=== PATIENT | male | born 1960 | race African-American/Black ===

== ENCOUNTER 2018-09-06 13:22 | Inpatient (IN) | payer MEDICAID ==
[~2018-09-06] VITALS: Ht 177.8 cm; Wt 55.8 kg
[2018-09-06] VITALS (30 sets, daily range): BP systolic 68–139; BP diastolic 41–71
--- NOTE | 2018-09-06 13:25 | NUR ---
RT PT BROUGHT INTO ER BY PARAMEDICS WITH A Accupass 8 TRACH. PARAMEDICS WERE BAGGING PT UPON ARRIVAL. PT PLACED ON HOSPITAL VENT WITH NOTED SETTINGS BY PARAMEDICS. PT IS AWAKE BUT DOES NOT FOLLOW COMMANDS. VENT ALARMS ARE SET AND AUDIBLE WITH BVM BY BEDSIDE. CORPORATE OPERATIONS COMPLIANCE MANAGER CUFF PRESSURE NOTED. VENT IS PLUGGED INTO RED OUTLET. SX'D MODERATE THICK MONACO SECRETIONS. Addendum: 09/06/18 at 1434 by NICOLA BLACKBURN RT Amended: Links added.
[2018-09-06] MEDS ORDERED: VANCOMYCIN 1 GM in IV D5W 250 ML IV ONE (13:30)
[2018-09-06] MEDS ORDERED: IV NS 0.9% 1,000 ML BAG IV ONE (13:30)
[2018-09-06] MEDS ORDERED: CEFEPIME 1 GM in IV D5W 50 ML IV ONE (13:30)
--- NOTE | 2018-09-06 13:39 | NUR ---
RIGHT AC 18 GAUGE INITIATED MD AT BEDSIDE FOR INSERTION OF CENTRAL LINE IV FLUIDS RUNNING BS 91 TEMP 102.8 RECTALLY, ICE PACKS IMPLEMENTED IMMEDIATELY PATIENT TRACH VENT AC 14, TIDAL VOLUME 400 FIO2 100 PEEP OF 0
--- NOTE | 2018-09-06 13:41 | NUR ---
BLOOD COLLECTED AND SENT TO LAB
[2018-09-06] MEDS ORDERED: ACETAMINOPHEN 160 MG/5 ML GT STA (13:50)
[2018-09-06 13:55] LABS: HEMATOCRIT 30 % (39-51); HEMOGLOBIN 9.8 g/dL (13.5-17.5); MEAN CORPUSCULAR HGB CONC 33 g/dl (31.0-36.0); MEAN CORPUSCULAR VOLUME 88 fL (80-96); PLATELET COUNT (AUTO) 236 /CMM (150-450); RED BLOOD CELL COUNT(AUTO) 3.42 MIL/uL (4.5-6.0); WHITE BLOOD COUNT (AUTO) 6.5 K/uL (4.3-11.0)
--- NOTE | 2018-09-06 13:55 | NUR ---
PATIENT UNABLE TO FOLLOW COMMANDS. SEVERE WEAKNESS ON UPPER AND LOWER EXTREMITIES. UNABLE TO FOLLOW PEN LIGHT WITH EYES, COUGH AND GAG REFLEX NOTED SLUGGIESH REACTION WITH 2 MM
[2018-09-06] MEDS ORDERED: NOREPINEPHRINE 8 MG in IV D5W 500 ML IV ONE (14:00)
--- NOTE | 2018-09-06 14:00 | NUR ---
DR SCHMID NOTIFIED OF ABG RESULTS, FIO2 TITRATED TO 80% PER ORDERS. SPO2 AT 98 %.
[2018-09-06 14:01] LABS: ABG BASE EXCESS -3.8 mmol/L; ABG OXYGEN SATURATION 98.7 % (92.0-98.5); ABG PCO2 36.3 mmHg (35.0-45.0); ABG PH 7.377 (7.350-7.450); ABG PO2 235.7 mmHg (75.0-100.0); COHb 0.3 % (0.5-1.5); MetHb 0.5 % (0.0-1.5); O2Hb 97.9 % (94.0-97.0); PEEP,BG 0 cm H2O; SITE, ABG Left Radial; VT, ABG 400 mL
[2018-09-06] MEDS ORDERED: ACETAMINOPHEN 650 MG/20.3 ML UDC ONE (14:01)
[2018-09-06 14:05] LABS: CARBON DIOXIDE 22 mmol/L (21-32); CHLORIDE 97 mmol/L (98-107); CREATININE 2.1 mg/dL (0.6-1.3); GLUCOSE 91 mg/dL (74-106); POTASSIUM 5.3 mmol/L (3.5-5.1); SODIUM SERUM 135 mmol/L (136-145); UREA NITROGEN, BLOOD 54 mg/dL (7-18)
[2018-09-06 14:11] LABS: ALANINE AMINOTRANSFERASE 39 U/L (12-78); ALBUMIN 1.8 g/dL (3.4-5.0); ALKALINE PHOSPHATASE 113 U/L (46-116); ASPARTATE AMINOTRANSFERASE 106 U/L (15-37); BILIRUBIN,DIRECT 0.1 mg/dL (0.0-0.2); BILIRUBIN,TOTAL 0.4 mg/dL (0.2-1.0); TOTAL PROTEIN, SERUM 6.6 g/dL (6.4-8.2)
--- NOTE | 2018-09-06 14:17 | NUR ---
DR CARVAJAL NOTIFIED OF BP TREND, RECENT BP 120/73 PER HER ORDERS, HOLD LEVOPHED FOR NOW CONTINUE FLUIDS
--- NOTE | 2018-09-06 14:18 | NUR ---
DR CARVAJAL NOTIFIED OF BP TREND, RECENT BP 120/73 PER HER ORDERS, HOLD LEVOPHED FOR NOW CONTINUE FLUIDS ,.ADDITIONAL [address] CARVAJAL PER PATIENT'S WEIGHT. VERBAL READBACK DONE
[2018-09-06 14:40] LABS: BAND % (MANUAL) 4 % (0.0-5.0); LYMPHOCYTES % (MANUAL) 8 % (16-48); MONOCYTES % (MANUAL) 20 % (0-11.0); NEUTROPHILS % (MANUAL) 68 (42-76)
[2018-09-06] MEDS ORDERED: INSU100V27 SQ (14:49)
[2018-09-06] MEDS ORDERED: ATOR10TA PO (14:49)
[2018-09-06] MEDS ORDERED: VANC1VIA IV (14:49)
[2018-09-06] MEDS ORDERED: LISI2.5T2 PO (14:49)
[2018-09-06] MEDS ORDERED: INSU100I26 SQ (14:49)
[2018-09-06] MEDS ORDERED: HEPA50008 SQ (14:49)
[2018-09-06] MEDS ORDERED: CEFT1VIA15 IV (14:49)
[2018-09-06] MEDS ORDERED: FURO20TA4 PO (14:49)
[2018-09-06] MEDS ORDERED: TRAZ-214 PO (14:49)
[2018-09-06] MEDS ORDERED: LEVE500T20 PO (14:49)
--- NOTE | 2018-09-06 14:50 | NUR ---
PER DR CARVAJAL, TITRATE FIO2 TO 50%
[2018-09-06] MEDS ORDERED: NUT.250L18 GT (14:52)
--- NOTE | 2018-09-06 14:54 | NUR ---
Bed 256
[2018-09-06] MEDS ORDERED: ALBUMIN 25% 12.5 GM/50 ML BOTTLE IV ONE (15:00)
--- NOTE | 2018-09-06 15:00 | NUR ---
ICU/RN: RECEIVED PT FROM ER. REPORT RECEIVED BY ESTRELLA REGAN. PT TRANSFERRED VIA GURNEY. PT ON VENT SETTINGS ORDERED BY MD. SAMMIE Schumacher TRACH NOTED. PT OPENS EYES TO PAINFUL STIMULI, DOES NOT FOLLOW COMMANDS. PT SINUS TACH ON TELE. SEXTON CATH IN PLACE, DRAINING ROXANA URINE. TUBE IN PLACE, CLAMPED, PLACEMENT VERIFIED. PT NPO AT THIS TIME. PIV AND CENTRAL LINE INTACT, NO S/S OF INFECTION OR INFILTRATION NOTED. WOUND PHOTOS TAKEN AND PLACED IN CHART. ISOFLEX ON BED TURNED ON. TEMP NOTED, TYLENOL WAS GIVEN IN ER, COOLING MEASURES TAKEN. ALL NEEDS WILL BE ATTENDED TO, SAFETY MEASURES TAKEN, BED IN LOW POSITION, SIDE RAILS UP, CALL LIGHT WITHIN REACH. WILL CONTINUE CARE.
--- NOTE | 2018-09-06 15:16 | NUR ---
COUDE CATHETER, 16 URDU, INSERTED PER DR CARVAJAL UA COLLECTED AND SENT TO LAB
[2018-09-06 15:20] LABS: APPEARANCE,URINE Slightly Cloudy (CLEAR); BILIRUBIN,URINE Negative (NEGATIVE); BLOOD, URINE Moderate Ery/uL (NEGATIVE); COLOR,URINE Dark Yellow (YELLOW); KETONES,URINE Negative (NEGATIVE); LEUKOCYTE ESTERASE ,URINE Small (NEGATIVE); NITRITE, URINE Negative (NEGATIVE); PROTEIN,URINE 30 mg/dl (NEGATIVE); UGLUCOSE 100 MG/DL mg/dL (NEGATIVE); UROBILINOGEN,URINE 0.2 EU/dL (0.2)
[2018-09-06] MEDS ORDERED: ALBUMIN 25% 50 ML IV ONE ×2 (15:21)
[2018-09-06] MEDS ORDERED: PIPERACILLIN /TAZOBACTAM 3.375 G in IV D5W 50 ML IV SCH (15:30)
--- NOTE | 2018-09-06 15:38 | NUR ---
NASRIN ZAMORA NP UPDATED OF PATIENT'S STATUS AND AWARE OF COUDE CATHETER INSERTION
[2018-09-06 15:40] LABS: BACTERIA,URINE Many /HPF (None Seen); SQUAMOUS EPITHELIAL CELL,UR Rare /HPF (None Seen); WBC,URINE 21-50 /HPF (0-3)
[2018-09-06] MEDS ORDERED: NOREPINEPHRINE 8 MG in IV D5W 500 ML IV PRN (16:00)
[2018-09-06] MEDS ORDERED: ONDANSETRON HCL/PF 4 MG/2 ML VIAL IVP PRN (16:00)
[2018-09-06] MEDS ORDERED: PIPERACILLIN /TAZOBACTAM 3.375 G in IV D5W 50 ML IV ONE (16:00)
[2018-09-06] MEDS ORDERED: FEE PK DOSING 1 MIN EA MC ONE (16:06)
--- NOTE | 2018-09-06 16:33 | NUR ---
REPORT GIVEN TO MOE RN PATIENT RESTING IN BED WITH VS WNL. SHIELY 8, FIO2 OF 50%, AC 14, TV 400, PEEP OF 0 RIGHT IJ CENTRAL LINE PATENT AND INTACT. GAUGE 18 PATENT AND INTACT SEXTON CATHETER PATNET AND INTACT DRAINING YELLOW CLOUDY URINE SPOKE TO PHARMACY, ZOSYN TO BE INFUSED IN ICU
[2018-09-06] MEDS: IV NS 0.9% 1,000 ML IV PRN (17:59)
[2018-09-06] MEDS: NOREPINEPHRINE 8 MG in IV D5W 500 ML IV PRN ×2 (18:00→19:36)
[2018-09-06] MEDS ORDERED: PIPERACILLIN /TAZOBACTAM 2.25 G in IV D5W 50 ML IV SCH (18:00)
--- NOTE | 2018-09-06 18:00 | NUR ---
ICU/RN: LOW DOSE LEVO INITIATED, BP 82/51, HR 116. WILL TITRATE PER PROTOCOL
[2018-09-06] MEDS ORDERED: MEROPENEM 500 MG in IV NS 0.9% 50 ML IV SCH (19:00)
--- NOTE | 2018-09-06 19:05 | NUR ---
ICU/RN: ENDING NOTES,AM REPORT WILL BE ENDORSED TO NIGHT NURSE FOR CONTINUATION OF CARE. ALL NEEDS ATTENDED TO. PT ON VENT SETTINGS ORDERED, SOME TACHYPNEA NOTED. PT HAS TEMP OF 100.1, COOLING MEASURES TAKEN. ACETAMINOPHEN ADMINISTERED IN ER, NOT DUE AT THIS TIME. WILL CONTINUE TO MONITOR RR RATE. ISOFLEX TURNED ON ON THE BED, PT TURNED AND REPOSITIONED. WOUND CONSULT PENDING. ALL NEEDS ATTENDED TO SAFETY MEASURES TAKEN, BED IN LOW POSITION, SIDE RAILS UP, CALL LIGHT WITHIN REACH. SPUTUM CX PENDING.
--- NOTE | 2018-09-06 19:38 | NUR ---
PT RECEIVED TRACH SHILEY 8 ON THE VENT WITH NOTED SETTINGS. PT IS AWAKE BUT DOES NOT FOLLOW COMMANDS. VENT PLUGGED INTO RED OUTLET, VENT ALARMS ARE SET AND AUDIBLE WITH AMBU BAG@ BEDSIDE. CARTOGRAPHY TEACHER CUFF PRESSURE NOTED. SUCTIONED MODERATE AMOUNT OF BROWN THICK SECRETIONS. PT RESPIRATORY RATE IS HIGH AT THIS TIME. ESTRELLA COHEN NOTIFIED .WILL CONTINUE TO MONITOR.
[2018-09-06] MEDS ORDERED: MEROPENEM 1 G in IV NS 0.9% 100 ML IV ONE (20:00)
[2018-09-06] MEDS: HEPARIN SODIUM, PORCINE 5000 UNITS/1 ML VIAL SQ SCH (20:05)
--- NOTE | 2018-09-06 20:20 | NUR ---
RADIO MECHANIC APPRENTICE: DR. DELMIS LYNN SAW AND EXAMINED THE PT. INFORMED HIM OF K=5.3 AND THAT PT HAD 2 LARGE BM DURING DAY SHIFT AND FROM ER. PT STILL NOTED WT KCVD=416.4 AND RR IN THE 40s. ST WT P WAVE INVERSION. DNP WT ORDER FOR ABG STAT. NOTED AND CARRIED OUT.
[2018-09-06 21:00] LABS: ABG BASE EXCESS -2.3 mmol/L; ABG OXYGEN SATURATION 91.4 % (92.0-98.5); ABG PCO2 35.4 mmHg (35.0-45.0); ABG PH 7.411 (7.350-7.450); ABG PO2 68.4 mmHg (75.0-100.0); AaDO2 248.3 mmHg; COHb 0.3 % (0.5-1.5); MetHb 0.5 % (0.0-1.5); O2Hb 90.7 % (94.0-97.0); SITE, ABG Right Radial; VT, ABG 400 mL
[2018-09-06] MEDS ORDERED: PIPERACILLIN /TAZOBACTAM 3.375 G in IV D5W 100 ML IV SCH (21:00)
--- NOTE | 2018-09-06 21:30 | NUR ---
TAXICAB STARTER: RELAYED ABG RESULT TO DR. LYNN WT NO NEW ORDER. SPUTUM COLLECTED AND CALLED TO PHARMACY FOR DETECTOR CAR OPERATOR.
[2018-09-07] VITALS (109 sets, daily range): BP systolic 86–120; BP diastolic 39–74
--- NOTE | 2018-09-07 02:00 | NUR ---
SIGNING AGENT: BED BATH GIVEN AND TOLERATED FAIRLY. STILL ON LEVOPHED AT 5 MCG/MIN FOR BP SUPPORT. WILL CONTINUE TO MONITOR.
[2018-09-07] MEDS: VANCOMYCIN 0.75 GM in IV D5W 250 ML IV SCH ×2 (02:29→15:52)
[2018-09-07 04:25] LABS: HEMOGLOBIN 7.6 g/dL (13.5-17.5); MONOCYTES # (AUTO) 0.2 /CMM (0.1-1.30)
[2018-09-07 04:45] LABS: CALCIUM, SERUM 7.5 mg/dL (8.5-10.1); CREATININE 1.5 mg/dL (0.6-1.3); MAGNESIUM 1.7 mg/dL (1.8-2.4); PHOSPHORUS 3.8 mg/dL (2.5-4.9); POTASSIUM 4.7 mmol/L (3.5-5.1)
[2018-09-07 04:59] LABS: EOSINOPHILS % (AUTO) 0.9 % (0.0-6.0); HEMATOCRIT 23 % (39-51); LYMPHOCYTES # (AUTO) 0.1 /CMM (0.8-4.8); LYMPHOCYTES % (AUTO) 1.8 % (20.0-44.0); MEAN CORPUSCULAR HGB CONC 33 g/dl (31.0-36.0); MEAN CORPUSCULAR VOLUME 87 fL (80-96); MONOCYTES % (AUTO) 6.1 % (2.0-12.0); NEUTROPHILS % (AUTO) 91.2 % (43.0-81.0); PLATELET COUNT (AUTO) 110 /CMM (150-450); RED BLOOD CELL COUNT(AUTO) 2.62 MIL/uL (4.5-6.0); WHITE BLOOD COUNT (AUTO) 3.3 K/uL (4.3-11.0)
[2018-09-07] MEDS: IV NS 0.9% 1,000 ML IV PRN ×2 (05:32→17:58)
[2018-09-07 06:06] LABS: BAND % (MANUAL) 20 % (0.0-5.0); LYMPHOCYTES % (MANUAL) 6 % (16-48); MONOCYTES % (MANUAL) 10 % (0-11.0); NEUTROPHILS % (MANUAL) 64 (42-76)
--- NOTE | 2018-09-07 06:50 | NUR ---
MARKETING MGR: PT REMAINS ALERT TO SELF, UNABLE TO FOLLOW SIMPLE COMMANDS. VENT SETTINGS ORDERED WT RR STILL IN THE HIGH 30s TO LOW 40s. CORE TEMP= 100.1, CONTINUE COOLING MEASURES. SINUS TACH ON SECOND HELPER AND STILL ON LEVOPHED AT 5MCG/MIN. RT. IJ TLC ALSO INFUSING NS AT 100ML/HR WT NO S/S OF COMPLICATIONS. GT REMAINS CLAMPED. F/C PATENT AND INTACT DRAINING ROXANA COLORED URINE TO GRAVITY. ALL NEEDS MET. WILL ENDORSE TO DAY SHIFT FOR CONTINUITY OF CARE.
[2018-09-07] MEDS: MEROPENEM 1 G in IV NS 0.9% 100 ML IV SCH ×2 (09:06→21:13)
[2018-09-07] MEDS: PANTOPRAZOLE 40 MG VIAL IV SCH (09:09)
--- NOTE | 2018-09-07 10:00 | NUR ---
DR MARTE UPDATED ON LAST NIGHT'S ABG RESULTS. NO NEW ORDERS.
[2018-09-07] MEDS ORDERED: Sodium Phosphate 15 MMOL in IV D5W 250 ML IV ONE (10:30)
[2018-09-07] MEDS: ACETAMINOPHEN 650 MG/SUPP.RECT RC PRN (11:09)
[2018-09-07] MEDS: Magnesium 1GM/D5W 100ML PREMIX 100 ML IV SCH ×2 (11:21→12:26)
[2018-09-07] MEDS: HEPARIN SODIUM, PORCINE 5000 UNITS/1 ML VIAL SQ SCH ×2 (12:27→21:14)
--- NOTE | 2018-09-07 12:31 | NUR ---
NASRIN ZAMORA UPDATED REGARD TODAY'S H&H. PER HIS ORDERS, CONTINUE HEPARIN NO SIGNS OF BLEEDING NOTED ALL MORNING. RADIOLOGIC TECHNOLOGIST CHIEF NOTIFIED OF ABG RESULTS OF YESTERDAY PER NASRIN ZAMORA NP, START PATIENT ON TUBE FEEDING PER DIETARY RECOMMENDATION
[2018-09-07] MEDS: NOREPINEPHRINE 8 MG in IV D5W 500 ML IV PRN (15:13)
[2018-09-07] MEDS: GLUCERNA 1.2 1,000 ML BOTTLE NG PRN (18:04)
--- NOTE | 2018-09-07 19:30 | NUR ---
RN NOTES RECEIVED PT WITH TRACH SHILEY 8 CONNECTED TO VENT SETTING AC 14 TV 400 FIO2 50% NO PEEP. PT IS LETHARGIC, NON VERBAL BUT RESPONSIVE TO TACTILE STIMULI. ST WITH T WAVE INVERSION HR 103. ZERO FLACC. IV SITE ON RIJ WITH LEVOPHED @ 1 MCG/MIN ANS NS @ 100 ML/HR ANOTHE IV SITE ON RAC G 18 INTACT AND FLUSHED WELL. SEXTON CATH DRAINED WITH YELLOW COLOR CLEAR URINE. KEPT PT CLEAN AND DRY. REPOSITIONED FOR COMFORT. WILL CONTINUE TO MONITOR,
--- NOTE | 2018-09-07 19:44 | NUR ---
VANCO DOSE GIVEN TODAY PER PHARMACY RENAL DOSING. ARI CROOK, NOTIFIED. DR MELVIN PAGED DURING SHIFT TO CLARIFY ORDER OF CONTINUING VANCOMYCIN. NO CALL BACK RECEIVED. ENDORSED TO NEXT SHIFT RN
[2018-09-08] VITALS (103 sets, daily range): BP systolic 85–129; BP diastolic 48–75
[2018-09-08] MEDS ORDERED: PROPOFOL 100 ML ONE (00:53)
[2018-09-08] MEDS: VANCOMYCIN 0.75 GM in IV D5W 250 ML IV SCH (02:40)
[2018-09-08 05:19] LABS: BASOPHILS % (AUTO) 0.1 % (0.0-2.0); EOSINOPHILS % (AUTO) 0.2 % (0.0-6.0); HEMATOCRIT 24 % (39-51); HEMOGLOBIN 7.7 g/dL (13.5-17.5); LYMPHOCYTES # (AUTO) 0.2 /CMM (0.8-4.8); LYMPHOCYTES % (AUTO) 1.3 % (20.0-44.0); MEAN CORPUSCULAR HGB CONC 33 g/dl (31.0-36.0); MEAN CORPUSCULAR VOLUME 89 fL (80-96); MONOCYTES # (AUTO) 0.5 /CMM (0.1-1.30); NEUTROPHILS # (AUTO) 11.6 /CMM (1.8-8.9); NEUTROPHILS % (AUTO) 94.4 % (43.0-81.0); RED BLOOD CELL COUNT(AUTO) 2.67 MIL/uL (4.5-6.0); WHITE BLOOD COUNT (AUTO) 12.3 K/uL (4.3-11.0)
[2018-09-08 05:44] LABS: MONOCYTES % (MANUAL) 4 % (0-11.0); NEUTROPHILS % (MANUAL) 74 (42-76)
[2018-09-08 05:45] LABS: ALANINE AMINOTRANSFERASE 49 U/L (12-78); ALKALINE PHOSPHATASE 74 U/L (46-116); ASPARTATE AMINOTRANSFERASE 82 U/L (15-37); BAND % (MANUAL) 20 % (0.0-5.0); CALCIUM, SERUM 7.9 mg/dL (8.5-10.1); CARBON DIOXIDE 19 mmol/L (21-32); CHLORIDE 105 mmol/L (98-107); CREATININE 1.3 mg/dL (0.6-1.3); LYMPHOCYTES % (MANUAL) 2 % (16-48); MAGNESIUM 2.6 mg/dL (1.8-2.4); PHOSPHORUS 4.3 mg/dL (2.5-4.9); POTASSIUM 5.3 mmol/L (3.5-5.1); SODIUM SERUM 140 mmol/L (136-145); TOTAL PROTEIN, SERUM 5.4 g/dL (6.4-8.2); UREA NITROGEN, BLOOD 53 mg/dL (7-18)
[2018-09-08 05:49] LABS: PLATELET COUNT (AUTO) 46 /CMM (150-450)
[2018-09-08 05:51] LABS: ALBUMIN 1.4 g/dL (3.4-5.0); GLUCOSE 401 mg/dL (74-106)
[2018-09-08 06:05] LABS: CREATINE KINASE, TOTAL 1641 U/L (39-308)
--- NOTE | 2018-09-08 06:15 | NUR ---
RN NOTES CALLED AND LEFT A MESSAGE TO DR. LYNN REGARDING PT CRITICAL VALUES OF ALBUMIN 1.4 GLUCOSE 401 AND PLATELET 46. WAITING FOR THE CALL BACK.
[2018-09-08] MEDS: PROPOFOL 100 ML IV PRN ×2 (06:31→18:20)
--- NOTE | 2018-09-08 07:15 | NUR ---
RN NOTES NO SIGNIFICANT CHANGES THROUGHOUT THE SHIFT. AFEBRILE. VSS WITH LEVOPHED. ZERO FLACC. RESPONSIVE TO DEEP PAIN. ST WITH INVERTED T- WAVE ON TELE MONITOR. WITH LOW URINE OUTPUT. KEPT PT GTF ON 20 ML/HR DUE TO RESIDUAL OF 20-30'S. IV SITE REMAINED INTACT AND PATENT WITH LEVOPHED @ 1MCG/MIN AND PROPOFOL @ 5 MCG/KG/MIN AND NS @ 100 ML/HR. F/C KEPT IN PLACED WITH SMALL AMOUNT OF URINE VIA GRAVITY. KEPT PT CLEAN AND RY. ENDORSED CONTINUITY OF CARE TO AM NURSE.
--- NOTE | 2018-09-08 08:15 | NUR ---
RN NOTES SEEN BY STEWART FOR WOUND CONSULT.
--- NOTE | 2018-09-08 08:30 | NUR ---
WOUND CARE CONSULT: PT PRESENTS WITH UNSTAGEABLE SACRAL ULCER AND DRY WOUNDS TO BILATERAL KNEES, PRESENT ON ADMISSION. RECOMMEND SURGICAL CONSULT. RECOMMENDATIONS MADE FOR WOUND CARE AND SKIN PROTECTION. DISCUSSED WITH NURSING STAFF. PT ON [facility] AIR[facility] BED. WILL SEE PRN. ANGUIANO IN AGREEMENT WITH PLAN OF CARE. CURRENT RALPH SCORE IS 9. Addendum: 09/08/18 at 0831 by STEWART GOULD WNDNU Amended: Links added.
[2018-09-08] MEDS: IV NS 0.9% 1,000 ML IV PRN (08:34)
[2018-09-08] MEDS: MEROPENEM 1 G in IV NS 0.9% 100 ML IV SCH ×2 (08:44→20:26)
[2018-09-08] MEDS: PANTOPRAZOLE 40 MG VIAL IV SCH (08:44)
[2018-09-08] MEDS: LACTOBACILLUS RHAMNOSUS GG 1 EACH CAP.SPRINK PO SCH ×2 (08:49→16:00)
--- NOTE | 2018-09-08 08:59 | NUR ---
PT WITH A SHILEY 8 TRACH. SETTINGS ORDERED PT IS AWAKE BUT DOES NOT FOLLOW COMMANDS. VENT ALARMS ARE SET AND AUDIBLE WITH BVM BY BEDSIDE. CURRENCY MACHINE OPERATOR CUFF PRESSURE NOTED. VENT IS PLUGGED INTO RED OUTLET. SX'D MODERATE THICK MONACO SECRETIONS. Addendum: 09/08/18 at 0902 by NICOLÁS MONTIEL RT Amended: Links added.
[2018-09-08] MEDS: HEPARIN SODIUM, PORCINE 5000 UNITS/1 ML VIAL SQ SCH ×2 (09:00→20:26)
[2018-09-08] MEDS: Z GUARD REMEDY 2 OZ OINT TP SCH (09:35)
[2018-09-08] MEDS: DAKINS QUARTER STRENGTH (0.125%) 480 ML BOTTLE TOP SCH (09:35)
[2018-09-08 10:13] LABS: APPEARANCE,URINE CLOUDY (CLEAR); BILIRUBIN,URINE NEGATIVE (NEGATIVE); BLOOD, URINE TRACE Ery/uL (NEGATIVE); COLOR,URINE YELLOW (YELLOW); KETONES,URINE TRACE (NEGATIVE); LEUKOCYTE ESTERASE ,URINE NEGATIVE (NEGATIVE); NITRITE, URINE NEGATIVE (NEGATIVE); PROTEIN,URINE NEGATIVE (NEGATIVE); UGLUCOSE NEGATIVE (NEGATIVE); UROBILINOGEN,URINE 0.2 EU/dL (0.2)
[2018-09-08 10:22] LABS: CREATININE, URINE 74.6 MG/DL (30.0-125.0); URINE TOTAL PROTEIN 92.4 mg/dL (0-11.9)
--- NOTE | 2018-09-08 11:30 | NUR ---
RN NOTES DR. DUEÑAS CALLED REGARDING THE CT RESULT OF RIGHT BRAIN MENINGIOMA, INFORMED NOAH CHAPMAN THAT PATIENT HAD HISTORY OF BRAIN CANCER. WAITING TO RESPONSE
--- NOTE | 2018-09-08 11:37 | NUR ---
RN NOTES DR. MILAN ON THE FLOOR INFORMED REGARDING PATIENT ABG RESULT Ph 7.255 Pco2 36.8 Po2 103.7 HC03 16.0
--- NOTE | 2018-09-08 11:49 | NUR ---
RN NOTES ENDORSED CONTINUITY OF CARE TO AGAPITO DE [place]
[2018-09-08 11:50] LABS: ABG BASE EXCESS -10.3 mmol/L; ABG OXYGEN SATURATION 95.9 % (92.0-98.5); ABG PCO2 36.8 mmHg (35.0-45.0); ABG PH 7.255 (7.350-7.450); ABG PO2 103.7 mmHg (75.0-100.0); AaDO2 139.2 mmHg; COHb 0.3 % (0.5-1.5); MetHb 1.2 % (0.0-1.5); O2Hb 94.5 % (94.0-97.0); SITE, ABG Right Radial
[2018-09-08 12:01] LABS: RBC,URINE 0-2 /HPF (0-2); WBC,URINE NONE SEEN /HPF (0-3)
[2018-09-08 12:02] LABS: BACTERIA,URINE Few /HPF (None Seen); SQUAMOUS EPITHELIAL CELL,UR Few /HPF (None Seen)
[2018-09-08 12:10] LABS: EOSINOPHIL,URINE None Seen
--- NOTE | 2018-09-08 12:15 | NUR ---
RN NOTES RECEIVED PT FROM OUTGOING RN, PT ON MECHANICAL VENTILATION, ON DIPRIVAN DRIP AT THIS TIME, PT WITH TACHYCARDIA AND INCREASED RESPIRATIONS. PT ON LEVOPHED ORDERED FOR CONTINUED BP SUPPORT.IV ACCESS PATENT AND INTACT NO REDNESS OR INFILTRATION NOTED. KEPT CLEAN DRY AND COMFORTABLE, CALL LIGHT WITHIN EASY REACH WILL CONTINUE TO MONITOR
[2018-09-08] MEDS: D5 IV PRN (15:24)
[2018-09-08] MEDS: SODIUM ACETATE IV PRN (15:24)
[2018-09-08] MEDS: NACL IV PRN (15:24)
[2018-09-08] MEDS: NOREPINEPHRINE 8 MG in IV D5W 500 ML IV PRN (16:02)
[2018-09-08] MEDS: GLUCERNA 1.2 1,000 ML BOTTLE NG PRN (16:25)
--- NOTE | 2018-09-08 18:45 | NUR ---
RN NOTES PT IN BED, PT ON MECHANICAL VENTILATION, ON DIPRIVAN DRIP AT THIS TIME, PT WITH TACHYCARDIA AND INCREASED RESPIRATIONS. PT ON LEVOPHED ORDERED FOR CONTINUED BP SUPPORT.IV ACCESS PATENT AND INTACT NO REDNESS OR INFILTRATION NOTED. KEPT CLEAN DRY AND COMFORTABLE, CALL LIGHT WITHIN EASY REACH WILL CONTINUE TO MONITOR. BLOOD SUGAR CHECKED WITH RESULT OF 478, NASRIN ZAMORA TO CALL BACK WITH ORDERS REPORT GIVEN TO NEXT SHIFT FOR CONTINUITY OF CARE Addendum: 09/08/18 at 2003 by PRAKASH CHATTERJEE RN REPORT TO BE GIVEN TO NEXT RN
[2018-09-08] MEDS ORDERED: DEXTROSE 50%-WATER 50 ML DISP.SYRIN IV PRN (19:30)
[2018-09-08] MEDS ORDERED: INSULIN REGULAR, HUMAN 100 UNIT/ML 3 ML VIAL SQ PRN (19:30)
[2018-09-08] MEDS ORDERED: INSULIN REGULAR, HUMAN 100 UNIT/ML 10 ML VIAL SQ ONE (19:30)
--- NOTE | 2018-09-08 19:30 | NUR ---
RN NOTES REGULAR INSULIN 6 U SQ GIVEN ORDERED, CONTINUE TO MONITOR AT THIS TIME REPORT GIVEN TO NEXT SHIFT
--- NOTE | 2018-09-08 19:30 | NUR ---
EMPLOYEE COMMUNICATIONS COORDINATOR: RECEIVED CHRONIC TRACH TO VENT PT WT SETTINGS ORDERED. NOTED WT SHALLOW BREATHING WT RR IN THE 30s-40s. OBTUNDED AND MOVES TO LOCALIZED PAIN. CORE TEMP=99.9, CONTINUE COOLING MEASURES. ST ON GENERAL MERCHANDISE SALESPERSON. LT. IJ TLC RUNNING NA ACETATE AT 75ML/HR, DIPRIVAN AT 5MCG/KG/MIN AND LEVOPHED 8MCG/MIN WT NO S/S OF COMPLICATIONS. GT RUNNING GLUCERNA 1.2 AT 30ML/HR WT 10C RESIDUAL. BLOOD TINGED SPUTUM SECRETIONS WHEN SUCTIONED. F/C PATENT AND INTACT DRAINING ROXANA COLORED URINE. ON MONITORING FOR HYPERGLYCEMIA. HOB AT 35 DEGREES. SAFETY PRECAUTION NOTED. Addendum: 09/09/18 at 0304 by NOEL VASQUEZ RN CORRECTION:INTERNAL JUGULAR TLC IS ON RIGHT SIDE, NOT LEFT SIDE.
--- NOTE | 2018-09-08 19:55 | NUR ---
PT RECEIVED TRACH SHILEY 8 ON THE VENT WITH NOTED SETTINGS. PT IS OBTUNDED. VENT PLUGGED INTO RED OUTLET, VENT ALARMS ARE SET AND AUDIBLE WITH AMBU BAG@ BEDSIDE. SUGAR CHIPPER MACHINE OPERATOR CUFF PRESSURE NOTED. TRACH PATENT AND SECURED. SUCTIONED MODERATE AMOUNT OF YELLOW THICK SECRETIONS WITH TINGED BLOOD.WILL CONTINUE TO MONITOR.
[2018-09-08] MEDS ORDERED: VANCOMYCIN 0.75 GM in IV D5W 250 ML IV SCH (20:00)
--- NOTE | 2018-09-08 20:38 | NUR ---
CARE MANAGEMENT ASSOCIATE: AMBER. TROUGH=23, HELD 2000 DOSE PER PROTOCOL AND CONFIRMED WT PRAKASH (PHARMACIST).
[2018-09-09] VITALS (103 sets, daily range): BP systolic 73–135; BP diastolic 43–72
[2018-09-09] MEDS ORDERED: BLOOD SUGAR DIAGNOSTIC 1 EACH STRIP IN SCH
[2018-09-09] MEDS ORDERED: INSULIN REGULAR, HUMAN 100 UNIT/ML 3 ML VIAL SQ ONE
--- NOTE | 2018-09-09 | NUR ---
COMPUTED TOMOGRAPHY SCANNER OPERATOR: DR. LYNN CALLED BACK AND MADE AWARE OF RA=631. DISCUSSED CURRENT SLIDING SCALE. DNP ORDERED TO GIVE 18 UNITS NOW, CHANGED SLIDING SCALE TO AGGRESSIVE AND ACCUCHEK Q4H. NOTED AND CARRIED OUT ORDER. GT RESIDUAL NOTED AT 250ML. WILL HOLD GTF AT THIS TIME AND WILL CONTINUE TO MONITOR.
--- NOTE | 2018-09-09 02:00 | NUR ---
NETWORK CONTROL OPERATORS SUPERVISOR: GT RESIDUAL STILL HIGH (180CC). WILL CONTINUE TO HOLD.
--- NOTE | 2018-09-09 02:30 | NUR ---
CHECK INSPECTOR: BED BATH GIVEN AND TOLERATED POORLY. STARTED HYPERVENTILATING, WILL INCREASE DIPRIVAN NEEDED.
[2018-09-09] MEDS: BLOOD SUGAR DIAGNOSTIC 1 EACH STRIP IN SCH ×5 (04:38→21:25)
[2018-09-09 04:40] LABS: BASOPHILS % (AUTO) 0.1 % (0.0-2.0); EOSINOPHILS % (AUTO) 0.1 % (0.0-6.0); HEMATOCRIT 23 % (39-51); HEMOGLOBIN 7.4 g/dL (13.5-17.5); LYMPHOCYTES # (AUTO) 0.2 /CMM (0.8-4.8); MEAN CORPUSCULAR HGB CONC 32 g/dl (31.0-36.0); MEAN CORPUSCULAR VOLUME 88 fL (80-96); MONOCYTES # (AUTO) 0.1 /CMM (0.1-1.30); MONOCYTES % (AUTO) 0.4 % (2.0-12.0); NEUTROPHILS # (AUTO) 19.1 /CMM (1.8-8.9); NEUTROPHILS % (AUTO) 98.4 % (43.0-81.0); WHITE BLOOD COUNT (AUTO) 19.4 K/uL (4.3-11.0)
[2018-09-09] MEDS: INSULIN REGULAR, HUMAN 100 UNIT/ML 3 ML VIAL SQ PRN ×3 (04:41→21:28)
[2018-09-09] MEDS ORDERED: DEXTROSE 50%-WATER 50 ML DISP.SYRIN IV PRN (05:00)
--- NOTE | 2018-09-09 05:00 | NUR ---
COMPLAINT INVESTIGATIONS OFFICER: PT. WT NO LABORED BREATHING, RR=28, SEDATED ON DIPRIVAN AT 20MCG/KG/MIN. NO EVIDENCE OF DISCOMFORT. BLOOD MZAXK=213, COVERED WT 20UNITS INSULIN PER SS. GT [id number]=[id number] WILL CONTINUE TO HOLD GTF. ON LEVOPHED AT 4MCG/MIN AND STILL ON NA ACETATE AT 75ML/HR. WILL CONTINUE TO MONITOR.
[2018-09-09 05:03] LABS: CALCIUM, SERUM 7.7 mg/dL (8.5-10.1); CREATININE 1.9 mg/dL (0.6-1.3)
[2018-09-09] MEDS: NACL IV PRN (05:07)
[2018-09-09] MEDS: SODIUM ACETATE IV PRN (05:07)
[2018-09-09] MEDS: D5 IV PRN (05:07)
[2018-09-09 05:22] LABS: PLATELET COUNT (AUTO) 25 /CMM (150-450)
[2018-09-09 05:24] LABS: BAND % (MANUAL) 25 % (0.0-5.0); LYMPHOCYTES % (MANUAL) 3 % (16-48); MONOCYTES % (MANUAL) 1 % (0-11.0)
[2018-09-09 05:25] LABS: NEUTROPHILS % (MANUAL) 71 (42-76)
--- NOTE | 2018-09-09 05:25 | NUR ---
COOKER SULFITE: RECEIVED PLATELET RESULT OF 25 FROM 46. NO ACTIVE BLEEDING EXCEPT BLOOD TINGED SECRETIONS. PAGED MD HOUSEKEEPING CLEANER. AWAITING FOR CALL BACK.
--- NOTE | 2018-09-09 06:45 | NUR ---
CHIP PERSON: STILL AWAITING FOR MD TSO TO CALL BACK TO RELAY PLATELET=25. NO ACTIVE BLEEDING NOTED. STILL ON NA ACETATE AT 75ML/HR, DIPRIVAN AT 20MCG/KG/MIN AND LEVOPHED AT 4MCG/MIN. GT FEEDING REMAINS ON HOLD. WILL ENDORSE TO DAY SHIFT FOR CONTINUITY OF CARE.
--- NOTE | 2018-09-09 07:00 | NUR ---
GAMBLING SUPERVISOR: DR. LYNN CALLED BACK AND MADE AWARE OF PLATELET=25. NO NEW ORDER AT THIS TIME. ENDORSED TO ESTRELLA ORSA.
--- NOTE | 2018-09-09 07:51 | NUR ---
ICU/RN INITIAL NOTES,AM RECEIVED REPORT FROM NIGHT NURSE. PT SEDATED ON DIPRIVAN FOR RESPIRATORY RATE CONTROL. PT TRACH TO VENT WITH SETTING ORDERED BY MD, NO ACUTE RESP DISTRESS NOTED. SINUS TACH ON TELE, 102. SEXTON CATH IN PLACE, DRAINING CLOUDY URINE. RIGHT TLC AND PIV PATENT AND INTACT, NO S/S OF INFECTION OR INFILTRATION NOTED. TUBE FEEDING WAS RESTARTED, HIGH RESIDUALS NOTED OVER NIGHT, NONE NOTED NOW. WILL CONTINUE TO MONITOR CLOSELY. PT TURNED AND REPOSITIONED Q2 HOURS AND NEEDED. ALL NEEDS WILL BE PROVIDED. WILL CONTINUE CARE.
[2018-09-09] MEDS: PANTOPRAZOLE 40 MG VIAL IV SCH (08:06)
[2018-09-09] MEDS: MEROPENEM 1 G in IV NS 0.9% 100 ML IV SCH ×2 (08:06→20:38)
[2018-09-09] MEDS: LACTOBACILLUS RHAMNOSUS GG 1 EACH CAP.SPRINK PO SCH ×2 (08:06→17:31)
[2018-09-09] MEDS: HEPARIN SODIUM, PORCINE 5000 UNITS/1 ML VIAL SQ SCH ×2 (08:08→20:38)
[2018-09-09] MEDS: Z GUARD REMEDY 2 OZ OINT TP SCH (08:08)
[2018-09-09] MEDS: DAKINS QUARTER STRENGTH (0.125%) 480 ML BOTTLE TOP SCH (08:24)
[2018-09-09] MEDS: VANCOMYCIN 0.75 GM in IV D5W 250 ML IV SCH (08:38)
--- NOTE | 2018-09-09 08:50 | NUR ---
ICU/RN: SEDATION VACATION DIPRIVAN TITRATED OFF. PT OBTUNDED, DOES NOT OPEN EYES, DOES NOT FOLLOW COMMANDS. WILL RESUME SEDATION DUE TO TACHYPNEA. RR 37-40. WILL CONTINUE TO MONITOR AND ASSESS.
[2018-09-09 09:03] LABS: ABG BASE EXCESS -0.1 mmol/L; ABG OXYGEN SATURATION 94.6 % (92.0-98.5); ABG PCO2 43.5 mmHg (35.0-45.0); ABG PH 7.379 (7.350-7.450); ABG PO2 83.9 mmHg (75.0-100.0); AaDO2 151.3 mmHg; COHb 0.2 % (0.5-1.5); MetHb 0.8 % (0.0-1.5); O2Hb 93.7 % (94.0-97.0); SITE, ABG Right Radial; VT, ABG 400 mL
--- NOTE | 2018-09-09 09:18 | NUR ---
MALE TRACHED PT SHILEY 8. SETTINGS ORDERED PT IS AWAKE BUT DOES NOT FOLLOW COMMANDS. VENT ALARMS ARE SET AND AUDIBLE WITH BVM BY BEDSIDE. WASTE PICKER CUFF PRESSURE NOTED. VENT IS PLUGGED INTO RED OUTLET. SX'D MODERATE THICK MONACO SECRETIONS. Addendum: 09/09/18 at 0919 by NICOLÁS MONTIEL RT Amended: Links added.
[2018-09-09] MEDS: IV NS 0.9% 1,000 ML IV PRN ×2 (12:21→22:51)
[2018-09-09] MEDS: NOREPINEPHRINE 8 MG in IV D5W 500 ML IV PRN (12:23)
[2018-09-09] MEDS: PROPOFOL 100 ML IV PRN ×2 (12:40→20:39)
[2018-09-09] MEDS ORDERED: FLUCONAZOLE IN NS 100 MG in PREMIX 1 EA IV SCH ×2 (17:00)
[2018-09-09] MEDS: ACETAMINOPHEN 650 MG/SUPP.RECT RC PRN (18:18)
--- NOTE | 2018-09-09 18:25 | NUR ---
ICU/RN: TEMP 101 PRN ACETAMINOPHEN GIVEN. COOLING MEASURES TAKEN. WILL CONTINUE TO MONITOR
--- NOTE | 2018-09-09 18:37 | NUR ---
ICU/RN: ENDING NOTES,AM REPORT WILL BE ENDORSED TO NIGHT NURSE FOR CONTINUATION OF CARE. ALL NEEDS ATTENDED TO. PT ON VENT SETTINGS ORDERED, SOME TACHYPNEA NOTED TITRATED DIPRIVAN TO 30MCG, NO CHANGES ASSESS AT THIS TIME. PT HAS TEMP OF 101, COOLING MEASURES TAKEN, ACETAMINOPHEN ADMINISTERED. WILL CONTINUE TO MONITOR RR RATE. ISOFLEX TURNED ON ON THE BED, PT TURNED AND REPOSITIONED. ALL NEEDS ATTENDED TO SAFETY MEASURES TAKEN, BED IN LOW POSITION, SIDE RAILS UP, CALL LIGHT WITHIN REACH. PIV AND CENTRAL LINE PATENT, IV FLUIDS INFUSING ORDERED.
--- NOTE | 2018-09-09 19:30 | NUR ---
SHANK FAKER: PT REMAINS SEDATED ON DIPRIVAN AT 30MCG/KG/MIN, LEVOPHED AT 8MCG/MIN FOR BP SUPPORT AND NS AT 100ML/HR. CORE DHLL=549. TYLENOL GIVEN BY DAY SHIFT AND CONTINUE COOLING MEASURES. VENT SETTINGS ORDERED WT 02 SAT 96% AND ABOVE. WILL CONTINUE TO MONITOR FOR ANY CHANGE OF CONDITION.
--- NOTE | 2018-09-09 20:33 | NUR ---
RECEIVED PT TRACHED SHLY 8 ON VENT. NO RESP DISTRESS NOTED. PT TOLERATING VENT SETTINGS. SX'D FOR MOD AMT OF THICK MONACO SECRETIONS. TRACH IS SECURED, CUFF SHEET CUTTING OPERATOR. VENT ALARMS SET AND AUDIBLE. AMBU BAG AT BEDSIDE. WILL CONTINUE TO MONITOR. Addendum: 09/09/18 at 2034 by LENI INTERIANO RT Amended: Links added.
--- NOTE | 2018-09-09 23:30 | NUR ---
DRY CELL SEALER: DR. DELMIS LYNN MADE AWARE OF PLATELET=14. THE REST OF DIC PANEL RESULT IS STILL PENDING. BLOOD TINGED SECRETIONS NOTED UPON SUCTIONING. DNP HAS NO NEW ORDER AND TO WAIT FOR COMPLETE DIC PANEL RESULT.
[2018-09-10] VITALS (105 sets, daily range): BP systolic 80–132; BP diastolic 47–77
[2018-09-10] LABS: D-DIMER 5.12 mg/L(FEU (0.17-0.50)
[2018-09-10] MEDS: BLOOD SUGAR DIAGNOSTIC 1 EACH STRIP IN SCH ×6 (01:00→20:13)
[2018-09-10] MEDS: INSULIN REGULAR, HUMAN 100 UNIT/ML 3 ML VIAL SQ PRN ×5 (01:03→20:19)
--- NOTE | 2018-09-10 01:50 | NUR ---
CANVAS GOODS FABRICATOR: CHARGE NURSE ED RELAYED DIC PANEL AND PLATELET RESULT TO DR. LYNN. DNP WT NEW ORDERS TO TRANSFUSE 1 UNIT PLATELET IF EQUAL OR LESS THAN 10.
[2018-09-10] MEDS ORDERED: NOREPINEPHRINE 4 MG/4 ML AMPUL IV ONE (03:16)
[2018-09-10 04:55] LABS: CALCIUM, SERUM 7.6 mg/dL (8.5-10.1); POTASSIUM 3.7 mmol/L (3.5-5.1)
[2018-09-10 05:05] LABS: IRON, SERUM 6 ug/dl (50-175); TOTAL IRON BINDING CAPACITY 86 ug/dl (250-450)
[2018-09-10 05:12] LABS: FERRITIN 412 ng/mL (8-388)
[2018-09-10] MEDS: PROPOFOL 100 ML IV PRN ×2 (05:16→09:13)
[2018-09-10] MEDS: NOREPINEPHRINE 8 MG in IV D5W 500 ML IV PRN (05:18)
[2018-09-10 05:59] LABS: BASOPHILS % (AUTO) 0.1 % (0.0-2.0); EOSINOPHILS % (AUTO) 0.1 % (0.0-6.0); HEMATOCRIT 22 % (39-51); HEMOGLOBIN 7.2 g/dL (13.5-17.5); LYMPHOCYTES # (AUTO) 0.4 /CMM (0.8-4.8); LYMPHOCYTES % (AUTO) 2.6 % (20.0-44.0); MEAN CORPUSCULAR HGB CONC 33 g/dl (31.0-36.0); MEAN CORPUSCULAR VOLUME 87 fL (80-96); MONOCYTES # (AUTO) 0.2 /CMM (0.1-1.30); MONOCYTES % (AUTO) 0.9 % (2.0-12.0); NEUTROPHILS % (AUTO) 96.3 % (43.0-81.0); RED BLOOD CELL COUNT(AUTO) 2.55 MIL/uL (4.5-6.0); WHITE BLOOD COUNT (AUTO) 16.7 K/uL (4.3-11.0)
[2018-09-10 06:03] LABS: PLATELET COUNT (AUTO) 14 /CMM (150-450)
[2018-09-10 06:19] LABS: BAND % (MANUAL) 5 % (0.0-5.0); LYMPHOCYTES % (MANUAL) 3 % (16-48); MONOCYTES % (MANUAL) 3 % (0-11.0); NEUTROPHILS % (MANUAL) 89 (42-76)
--- NOTE | 2018-09-10 06:50 | NUR ---
INVESTIGATION DIVISION CAPTAIN: AFEBRILE AT THIS TIME. CONTINUE ON DIPRIVAN AT 35MCG/KG/MIN, LEVOPHED AT 6MCG/MIN AND NS AT 100ML/HR.
--- NOTE | 2018-09-10 08:03 | NUR ---
INITIAL MEDICAL CARE MANAGER NOTE RCVD PT SEDATED ON DIPRIVAN, SR ON MONITOR SHOWING NO S/O DISTRESS/PAIN AT THIS TIME. APPEARS TACHYPNEIC DESPITE SEDATION WITH GOOD O2 SATURATION. WEAK DISTAL PULSES ON PALPATION AND EQUAL BUT SLUGGISH PUPILS. PT OBSERVED MOVING MOUTH TO PAINFUL STIMULI. SEXTON TO GRAVITY DRAINING YELLOW COLORED URINE. PEG CLAMPED PLACEMENT VERIFIED BY AUSCULTATION/ASPIRATION OF GASTRIC CONTENTS ABOUT 30ML. IV SITES C/D/I/PATENT. NO S/O INFILTRATION/PHLEBITIS OBSERVED UPON FLUSHING, IVF INFUSING ORDERED. WILL CONTINUE TO MONITOR PT FOR SAFETY AND COMFORT. BED IN LOW AND LOCKED POSITION.
--- NOTE | 2018-09-10 08:20 | NUR ---
RT PATIENT REC'D TRACHED ON [facility] VENT WITH ORDERED SETTINGS PADMINI WELL. VENT ALARMS CHECKED + AUDIBLE. CUFF PRESSURE CHECKED SONOGRAPHY TECHNICIAN. AIRWAY CHECKED + SUCTIONED WITH MOD AMT OF MONACO SEMI-THICK SECRETIONS. PATIENT AWAKE, NON RESPONSIVE TO VERBAL COMMANDS, NO SOB NOTED. VENT PLUGGED INTO RED OUTLET. AMBU BAG AT [facility] Addendum: 09/10/18 at 1107 by DEL THORNTON RT Amended: Links added.
[2018-09-10 08:40] LABS: ABG BASE EXCESS 0.6 mmol/L; ABG OXYGEN SATURATION 93.2 % (92.0-98.5); ABG PCO2 37.9 mmHg (35.0-45.0); ABG PH 7.433 (7.350-7.450); ABG PO2 71.3 mmHg (75.0-100.0); AaDO2 170.3 mmHg; COHb 0.2 % (0.5-1.5); MetHb 0.7 % (0.0-1.5); O2Hb 92.4 % (94.0-97.0); PEEP,BG 0 cm H2O; SITE, ABG Right Brachial; VT, ABG 400 mL
[2018-09-10] MEDS: IV NS 0.9% 1,000 ML IV PRN ×2 (09:03→19:45)
[2018-09-10] MEDS: MEROPENEM 1 G in IV NS 0.9% 100 ML IV SCH ×2 (09:06→17:38)
[2018-09-10] MEDS: PANTOPRAZOLE 40 MG VIAL IV SCH (09:06)
[2018-09-10] MEDS: LACTOBACILLUS RHAMNOSUS GG 1 EACH CAP.SPRINK PO SCH ×2 (09:06→16:23)
[2018-09-10] MEDS: DAKINS QUARTER STRENGTH (0.125%) 480 ML BOTTLE TOP SCH (09:07)
[2018-09-10] MEDS: Z GUARD REMEDY 2 OZ OINT TP SCH (09:08)
[2018-09-10] MEDS: VANCOMYCIN 0.75 GM in IV D5W 250 ML IV SCH (09:16)
--- NOTE | 2018-09-10 10:04 | NUR ---
LEAD INSTALLER NOTE DR. MORENO IN UNIT UPDATED ON PT'S CONDITION, INFORMED ABOUT TACHYPNEA DESPITE SEDATION. NO NEW ORDERS RCVD AT THIS TIME. HE RECOMMENDED TO DISCONTINUE HEPARIN SQ DUE TO LOW PLATELET COUNT. WILL CONTINUE TO MONITOR PT.
[2018-09-10] MEDS: GLUCERNA 1.2 1,000 ML BOTTLE NG PRN (10:09)
--- NOTE | 2018-09-10 13:37 | NUR ---
SEDATION VACATION NOTE PT OFF DIPRIVAN, REMAINS LETHARGIC,, UNABLE TO FOLLOW COMMANDS, OR OPEN EYES, PT OBSERVED GRIMACING TO PAINFUL STIMULI. WILL CONTINUE TO MONITOR. PT REMAINS TACHYPNEIC OFF DIPRIVAN AND TOLERATING VENT SETTINGS.
[2018-09-10] MEDS: ACETAMINOPHEN 650 MG/SUPP.RECT RC PRN (15:09)
[2018-09-10] MEDS: FLUCONAZOLE (100 MG) 100 MG TABLET GT SCH (17:45)
--- NOTE | 2018-09-10 18:26 | NUR ---
EQUINE INTERN NOTE PT REMAINS STABLE OFF SEDATION AND OFF LEVOPHED, UNABLE TO OPEN EYES, GRIMACING TO PAINFUL STIMULI OBSERVED SR ON MONITOR, TOLERATING VENT SETTINGS, TACHYPNEA REMAINS BUT IMPROVED. SEXTON TO GRAVITY DRAINING YELLOW URINE. PEG PLACEMENT VERIFIED BY AUSCULTATION/ASPIRATION NO GASTRIC RESIDUAL OBTAINED. TOLERATING TUBE FEEDING RATE. IV SITES REMAIN C/D/I/PATENT. NO S/O INFILTRATION/PHLEBITIS OBSERVED IVF INFUSING ORDERED. PT'S CARE WILL BE ENDORSED TO CONTRACT LAW SPECIALIST RN FOR CONTINUITY OF CARE BED IN LOW AND LOCKED POSITION. ARI ALEXANDRA AWARE OF PT'S NA TRENDING UP SINCE YESTERDAY, HE RECOMMENDED TO CONTINUE WITH NS.
--- NOTE | 2018-09-10 20:00 | NUR ---
AERONAUTICAL ENGINEERING TECHNOLOGIST - NOTES - PT UNABLE TO OPEN EYES, GRIMACING TO PAINFUL STIMULI OBSERVED SR ON MONITOR, TOLERATING VENT SETTINGS, TACHYPNEA NOTED. SEXTON TO GRAVITY DRAINING YELLOW URINE. PEG PLACEMENT VERIFIED BY AUSCULTATION/ASPIRATION NO GASTRIC RESIDUAL OBTAINED. TOLERATING TUBE FEEDING RATE. IV SITES REMAIN C/D/I/PATENT. NO S/O INFILTRATION/PHLEBITIS OBSERVED IVF INFUSING ORDERED.
--- NOTE | 2018-09-10 21:02 | NUR ---
RECEIVED PT TRACHED SHLY 8 ON VENT. NO RESP DISTRESS NOTED. PT TOLERATING VENT SETTINGS. SX'D FOR MOD AMT OF THICK MONACO SECRETIONS. TRACH IS SECURED, CUFF OPERATOR COATING FURNACE. VENT ALARMS SET AND AUDIBLE. AMBU BAG AT BEDSIDE. WILL CONTINUE TO MONITOR. Addendum: 09/10/18 at 2102 by LENI INTERIANO RT Amended: Links added.
[2018-09-11] VITALS (27 sets, daily range): BP systolic 86–130; BP diastolic 53–90
[2018-09-11] MEDS: MEROPENEM 1 G in IV NS 0.9% 100 ML IV SCH ×3 (00:34→17:04)
[2018-09-11] MEDS: BLOOD SUGAR DIAGNOSTIC 1 EACH STRIP IN SCH ×6 (00:34→21:07)
[2018-09-11] MEDS: INSULIN REGULAR, HUMAN 100 UNIT/ML 3 ML VIAL SQ PRN ×5 (00:37→21:09)
[2018-09-11] MEDS: VANCOMYCIN 0.75 GM in IV D5W 250 ML IV SCH ×2 (03:43→21:51)
[2018-09-11 04:55] LABS: BASOPHILS % (AUTO) 0.2 % (0.0-2.0); EOSINOPHILS % (AUTO) 0.1 % (0.0-6.0); HEMATOCRIT 23 % (39-51); HEMOGLOBIN 7.6 g/dL (13.5-17.5); LYMPHOCYTES # (AUTO) 0.3 /CMM (0.8-4.8); LYMPHOCYTES % (AUTO) 2.4 % (20.0-44.0); MEAN CORPUSCULAR HGB CONC 33 g/dl (31.0-36.0); MEAN CORPUSCULAR VOLUME 86 fL (80-96); MONOCYTES # (AUTO) 0.2 /CMM (0.1-1.30); MONOCYTES % (AUTO) 1.7 % (2.0-12.0); NEUTROPHILS % (AUTO) 95.6 % (43.0-81.0); RED BLOOD CELL COUNT(AUTO) 2.68 MIL/uL (4.5-6.0); WHITE BLOOD COUNT (AUTO) 12.6 K/uL (4.3-11.0)
[2018-09-11 05:04] LABS: CALCIUM, SERUM 7.4 mg/dL (8.5-10.1); CREATININE 0.9 mg/dL (0.6-1.3); POTASSIUM 3.9 mmol/L (3.5-5.1)
[2018-09-11 05:22] LABS: PLATELET COUNT (AUTO) 15 /CMM (150-450)
[2018-09-11 05:24] LABS: BAND % (MANUAL) 10 % (0.0-5.0); EOSINOPHILS % (MANUAL) 1 % (0-4); LYMPHOCYTES % (MANUAL) 1 % (16-48); MONOCYTES % (MANUAL) 1 % (0-11.0); NEUTROPHILS % (MANUAL) 87 (42-76)
[2018-09-11] MEDS: IV NS 0.9% 1,000 ML IV PRN (06:32)
--- NOTE | 2018-09-11 07:48 | NUR ---
COOK ENCHILADA NOTE NO CHANGE IN PT'S CONDITION REPORTED OVERNIGHT. PT REMAINS TACHYPNEIC OFF SEDATION, BP MAINTAINED. PT UNABLE TO OPEN EYES WITH PAINFUL STIMULI, GRIMACING OBSERVED. SR ON MONITOR WITH KNOWN T WAVE INVERSION. TOLERATING VENT SETTINGS WELL. NO S/O DISTRESS OBSERVED. SEXTON TO GRAVITY DRAINING YELLOW URINE, PEG PLACEMENT VERIFIED BY AUSCULTATION/ASPIRATION OF GASTRIC CONTENTS OBSERVED IN TUBING. NO RESIDUAL OBTAINED. IV SITES C/D/I/PATENT. NO S/O INFILTRATION/PHLEBITIS OBSERVED UPON FLUSHING, IVF INFUSING ORDERED. WILL CONTINUE TO MONITOR PT FOR SAFETY AND COMFORT. BED IN LOW AND LOCKED POSITION.
--- NOTE | 2018-09-11 07:58 | NUR ---
RT PATIENT REC'D TRACHED ON [facility] VENT WITH ORDERED SETTINGS PADMINI WELL. VENT ALARMS CHECKED + AUDIBLE. CUFF PRESSURE CHECKED PILOT CONTROL OPERATOR. AIRWAY CHECKED + SUCTIONED WITH MOD AMT OF MONACO SEMI-THICK SECRETIONS. PATIENT AWAKE, NON RESPONSIVE TO VERBAL COMMANDS, NO SOB NOTED. VENT PLUGGED INTO RED OUTLET. AMBU BAG AT [facility] Addendum: 09/11/18 at 0939 by DEL THORNTON RT Amended: Links added.
[2018-09-11] MEDS: LACTOBACILLUS RHAMNOSUS GG 1 EACH CAP.SPRINK PO SCH ×2 (08:56→17:04)
[2018-09-11] MEDS: PANTOPRAZOLE 40 MG VIAL IV SCH (08:56)
[2018-09-11] MEDS: DAKINS QUARTER STRENGTH (0.125%) 480 ML BOTTLE TOP SCH (08:58)
[2018-09-11] MEDS: Z GUARD REMEDY 2 OZ OINT TP SCH (08:59)
[2018-09-11 10:12] LABS: IMMUNOGLOBULIN A, SERUM 132 mg/dL (90-386); IMMUNOGLOBULIN G, SERUM 881 mg/dL (700-1600); IMMUNOGLOBULIN M, SERUM 24 mg/dL (20-172)
[2018-09-11] MEDS: HYDROGEL DRESSING 90 GM TUBE TP SCH (10:47)
--- NOTE | 2018-09-11 11:14 | NUR ---
RT PATIENT TRANSFERRED TO [facility] Addendum: 09/11/18 at 1115 by DEL THORNTON RT Amended: Links added.
--- NOTE | 2018-09-11 11:15 | NUR ---
[facility] RN NOTES RECEIVED PT FROM ICU, DX SEPSIS, OBTUNDED, OPENS EYES TO PAIN, WITH TRACH SHILEY 8 TO MECHANICAL VENT, SETTINGS ORDERED, TOLERATING WELL, TACHYPNEIC, RR AT 30s, BREATHING EVEN AND UNLABORED, NOT IN ANY DISTRESS, SINUS TACH 115 BPM ON MONITOR, WITH RT IJ TLC WITH NS AT 100 ML/HR, SITE CLEAR. GTF GLUCERNA AT 60 ML/HR, WITH SEXTON DRAINING YELLOW COLORED URINE VIA GRAVITY, SEE NURSING FLOWSHEET FOR SKIN ISSUES. PHOTOS OF SKIN ISSUES TAKEN TODAY. SAFETY MEASURES IN PLACE, WILL CONT TO MONITOR.
--- NOTE | 2018-09-11 11:22 | NUR ---
TRAINING CONSULTANTCEMENT BLOCK MAKER NOTE PT TRANSFERRED TO [facility] VIA BED PER PROTOCOL SHOWING NO S/O DISTRESS. REPORT GIVEN OVER THE PHONE TO ESTRELLA BARBOUR. ST ON MONITOR, LOW GRADE FEVER ON MONITOR 99.4. REMAINS TACHYPNEIC MID 30's. TOLERATING ORDERED VENT SETTINGS. SEXTON TO GRAVITY DRAINING YELLOW URINE. IV SITES C/D/I/PATENT. NO S/O INFILTRATION/PHLEBITIS OBSERVED UPON FLUSHING, IVF INFUSING ORDERED. PEG IN PLACE NO GASTRIC RESIDUAL OBTAINED. TOLERATING TUBE FEEDING GOAL RATE. PT'S CARE ENDORSED TO ESTRELLA BARBOUR AT BEDSIDE AND CONNECTED TO TELE BOX. ESTRELLA BARBOUR INFORMED OF PT POSSIBLY NEEDING NPH ORDERED SINCE BLOOD GLUCOSE LEVELS ARE ELEVATED WITH AGGRESSIVE SLIDING SCALE AND NA TRENDING UP 150 THIS AM, REMAINS ON NS IVF.
[2018-09-11] MEDS: GLUCERNA 1.2 1,000 ML BOTTLE NG PRN (17:01)
[2018-09-11] MEDS: FLUCONAZOLE (100 MG) 100 MG TABLET GT SCH (17:04)
[2018-09-11] MEDS: FERROUS SULFATE (325 MG) 325 MG/TAB TABLET PO SCH (17:04)
--- NOTE | 2018-09-11 18:39 | NUR ---
[facility] RN CLOSING PT RESTING IN BED, NO OTHER SIGNIFICANT CHANGE. NOT IN DISTRESS. TURNED AND REPOSITIONED. WOUND TREATMENT DONE. ALL NEEDS MET. WILL ENDORSE TO NEXT SHIFT FOR LEYDA
--- NOTE | 2018-09-11 19:48 | NUR ---
[facility] RN OPENING NOTES RECEIVED REPORT FROM MEGAN DE LA ROSA. PATIENT OBTUNDED BUT RESPONSIVE TO TACTILE STIMULI. BREATHING EVEN & UNLABORED W/ TRACH INTACT & TOLERATING VENT SETTINGS AC 14, TV 400, FIO2 40%, PEEP 0. NO S/S OF RESPIRATORY DISTRESS. ON TELE W/ SINUS TACH, HR 125. NO CARDIAC DISTRESS NOTED. RIGHT IJ TRIPLE LUMEN CATH INTACT & PATENT W/ DRESSING CDI, SALINE LOCKED. G-TUBE FLUSHING WELL W/ GTF GLUCERNA RUNNING @ 60 ML/HR. NO RESIDUAL NOTED @ THIS TIME. SEXTON CATH DRAINING YELLOW URINE. NO S/S/ OF PAIN OR DISCOMFORT @ THIS TIME. SAFETY MEASURES IN PLACE W/ SIDE RAILS UP & BED ALARM ON. WILL CONTINUE TO MONITOR CLOSELY.
--- NOTE | 2018-09-11 20:14 | NUR ---
RT PATIENT RECEIVED TRACHED ON [facility] VENT WITH CHARTED SETTINGS. VENT ALARMS AUDIBLE. AIRWAY PATENT AND SECURED. PT SUCTIONED WITH MOD AMT OF [place]ACO SEMI-THICK SECRETIONS. NO SOB NOTED AT THIS TIME. AMBUBAG AT BEDSIDE. VENT CONNECTED INTO RED OUTLET. WILL CONT. TO MONITOR. Addendum: 09/11/18 at 2017 by ISABEL NEW RT Amended: Links added.
[2018-09-12] VITALS: BP 129/76
[2018-09-12] MEDS: BLOOD SUGAR DIAGNOSTIC 1 EACH STRIP IN SCH ×6 (00:22→21:26)
[2018-09-12] MEDS: INSULIN REGULAR, HUMAN 100 UNIT/ML 3 ML VIAL SQ PRN ×5 (00:23→21:30)
[2018-09-12] MEDS: MEROPENEM 1 G in IV NS 0.9% 100 ML IV SCH ×3 (00:26→16:01)
[2018-09-12 04:00] VITALS: BP 109/65
[2018-09-12 06:24] LABS: OCCULT BLOOD STOOL NEGATIVE (NEGATIVE)
[2018-09-12 07:09] LABS: *SPE A/G RATIO 0.5 (0.7-1.7); *SPE ALBUMIN 1.3 g/dL (2.9-4.4); *SPE ALPHA-1-GLOBULIN 0.4 g/dL (0.0-0.4); *SPE ALPHA-2-GLOBULIN 0.9 g/dL (0.4-1.0); *SPE BETA GLOBULIN 0.5 g/dL (0.7-1.3); *SPE GLOBULIN, TOTAL 2.6 g/dL (2.2-3.9); *SPE M-SPIKE Not Observed g/dL (Not Observed); *SPEGAMMA GLOBULIN 0.8 g/dL (0.4-1.8)
[2018-09-12 07:10] LABS: BASOPHILS % (AUTO) 0.2 % (0.0-2.0); HEMATOCRIT 22 % (39-51); HEMOGLOBIN 7.4 g/dL (13.5-17.5); LYMPHOCYTES # (AUTO) 0.6 /CMM (0.8-4.8); LYMPHOCYTES % (AUTO) 5.6 % (20.0-44.0); MEAN CORPUSCULAR HGB CONC 34 g/dl (31.0-36.0); MEAN CORPUSCULAR VOLUME 86 fL (80-96); MONOCYTES # (AUTO) 0.4 /CMM (0.1-1.30); MONOCYTES % (AUTO) 3.7 % (2.0-12.0); NEUTROPHILS # (AUTO) 8.9 /CMM (1.8-8.9); NEUTROPHILS % (AUTO) 90.5 % (43.0-81.0); RED BLOOD CELL COUNT(AUTO) 2.57 MIL/uL (4.5-6.0); WHITE BLOOD COUNT (AUTO) 9.8 K/uL (4.3-11.0)
--- NOTE | 2018-09-12 07:10 | NUR ---
RT NOTE: PT. 58 Y OLD MALE REC. @ 0700 AM TRACH'D SAMMIE # 8 ON VENT PADMINI. WITH NOTED SETTINGS, ALARMS ARE SET AND FUNCTIONAL. NO DISTRESS NOTED, EQUAL CHEST RISE NOTED. PT&/VITALS REMAIN STABLE. B/S RHONCHI ON BILATERALLY BASSES. SUX'D FOR MODERATE AMT. BROWNISH SECRETIONS. NUCLEAR SUPERVISING OPERATOR DONE. AMBU BAG REMAIN AT THE BESIDE. VENT PLUGGED INTO RED OUTLET. CONTINUE CARE, AND MONITORING. Addendum: 09/12/18 at 0821 by HERIBERTO LEE RT Amended: Links added.
[2018-09-12 07:17] LABS: BILIRUBIN,TOTAL 0.5 mg/dL (0.2-1.0); CALCIUM, SERUM 8.1 mg/dL (8.5-10.1); POTASSIUM 4.4 mmol/L (3.5-5.1)
[2018-09-12 07:33] LABS: PLATELET COUNT (AUTO) 25 /CMM (150-450)
[2018-09-12 07:50] LABS: BAND % (MANUAL) 2 % (0.0-5.0); LYMPHOCYTES % (MANUAL) 7 % (16-48); MONOCYTES % (MANUAL) 2 % (0-11.0); NEUTROPHILS % (MANUAL) 89 (42-76)
--- NOTE | 2018-09-12 07:58 | NUR ---
JOSEFINA RN NOTE: RECEIVED PATIENT IN BED, ABLE TO OPEN HIS EYES, NONVERBAL. VENT-TRACH DEPENDENT BREATHING EVENLY AND UNLABORED. SATURATING 100%. VENT SETTING SHILEY#8 AC 14 TV 400 FIO2 40% AND PEEP 0. ON SUPERINTENDENT LAUNDRY SR HR= 85. HOB ELEVATED WITH GT FEEDING OF GLUCERNA 1.2 @60ML/HR WITH NO RESIDUAL AND TOLERATING WELL. (R) IJ TRIPLE LUMEN CATH NOTED IN PLACED. SEXTON CATHETER IN PLACED BELOW THE WAIST AND DRAINING YELLOW URINE TO GRAVITY. BED ALARMED AND LOCKED AT ALL TIMES. CALL LIGHT WITHIN REACH. NEEDS ANTICIPATED.
[2018-09-12 08:00] VITALS: BP 106/63
[2018-09-12] MEDS: PANTOPRAZOLE 40 MG VIAL IV SCH (08:29)
[2018-09-12] MEDS: FERROUS SULFATE (325 MG) 325 MG/TAB TABLET PO SCH ×2 (08:29→16:05)
[2018-09-12] MEDS: LACTOBACILLUS RHAMNOSUS GG 1 EACH CAP.SPRINK PO SCH ×2 (08:29→16:05)
[2018-09-12] MEDS: DAKINS QUARTER STRENGTH (0.125%) 480 ML BOTTLE TOP SCH (08:30)
[2018-09-12] MEDS: HYDROGEL DRESSING 90 GM TUBE TP SCH (08:30)
[2018-09-12] MEDS: Z GUARD REMEDY 2 OZ OINT TP SCH (08:31)
--- NOTE | 2018-09-12 09:21 | NUR ---
JOSEFINA RN NOTE: INFORMED DR. MARTE RE: THE PATIENT'S DAILY ABG AND CHEST X-RAY ORDERS. MD WAS INFORMED THAT PATIENT HAS BEEN DOWNGRADED TO JOSEFINA. PER MD, OK TO DC THE ORDERS. NOTED AND CARRIED OUT.
[2018-09-12] MEDS: GLUCERNA 1.2 1,000 ML BOTTLE NG PRN (11:10)
[2018-09-12 12:00] VITALS: BP 110/73
[2018-09-12] MEDS: VANCOMYCIN 0.75 GM in IV D5W 250 ML IV SCH (14:26)
--- NOTE | 2018-09-12 15:16 | NUR ---
JOSEFINA RN NOTE: INFORMED ARI SALINAS RE: THE DIETITIAN'S RECOMMENDATION FOR MVI AND VITAMIN C SUPPLEMENT FOR WOUND HEALING. EDITOR WITH ORDER, NOTED AND CARRIED OUT.
[2018-09-12 16:00] VITALS: BP 107/67
[2018-09-12] MEDS: FLUCONAZOLE (100 MG) 100 MG TABLET GT SCH (17:00)
--- NOTE | 2018-09-12 17:54 | NUR ---
RT END OF THE SHIFT REPORT: PT. 58 Y OLD MALE REC. @ 0700 AM REMAIN STABLE AND TRACH'D SHILEY # 8 ON VENT PADMINI. WITH NOTED SETTINGS, ALARMS ARE SET AND FUNCTIONAL. NO DISTRESS NOTED, EQUAL CHEST RISE NOTED. B/S RHONCHI ON BILATERALLY BASSES. SUX'D FOR MODERATE AMT. BROWNISH SECRETIONS. BIOCHEMISTRY TECHNOLOGIST DONE. AMBU BAG REMAIN AT THE BESIDE. VENT PLUGGED INTO RED OUTLET. HME CHANGED X2 CONTINUE CARE, AND REPORT WILL PASS TO PM SHIFT. Addendum: 09/12/18 at 1755 by HERIBERTO LEE RT Amended: Links added.
--- NOTE | 2018-09-12 19:47 | NUR ---
RT PT RECEIVED ON [facility] VENT WITH NOTED VENT SETTING. TRACH PATENT AND SECURE VIA TRACH TIES. ALARMS SET AND AUDIBLE. VENT TO RED OUTLET. COURTNEY NOLAN AT [facility]. DISCONNECT ALARM VERIFIED. NO SOB OR DISTRESS NOTED AT THIS TIME. WILL CONTINUE TO MONITOR. SX LARGE AMOUNT OF THICK BROWN/MONACO SECRETIONS AT BEGINNING OF SHIFT. Addendum: 09/12/18 at 1949 by JANNY VEE RT Amended: Links added.
[2018-09-12 20:00] VITALS: BP 113/67
--- NOTE | 2018-09-12 22:55 | NUR ---
JOSEFINA RN NOTE: PATIENT CARE TRANSFERRED TO DO ASHLEYU RN FOR CONTINUITY OF CARE. PATIENT CURRENTLY ON GT FEEDING OF GLUCERNA @60ML/HR WITH NO RESIDUAL. NO FACIAL GRIMACING NOTED. PATIENT ON VENT-TRACH SATURATING 100%. ON STABLE CONDITION.
--- NOTE | 2018-09-12 23:05 | NUR ---
JOSEFINA RN NOTE: RECEIVED BEDSIDE REPORT FOR IMPLEMENTATION DIRECTOR. PATIENT IN BED, ABLE TO OPEN HIS EYES, NONVERBAL. VENT-TRACH DEPENDENT BREATHING EVENLY AND UNLABORED WITH SATURATION OF 100%. VENT SETTING SHILEY#8 AC 14 TV 400 FIO2 40% AND PEEP 0. ON SURVEY ENGINEER SR HR= 95. HOB ELEVATED WITH GT FEEDING OF GLUCERNA 1.2 @60ML/HR WITH NO RESIDUAL AND TOLERATING WELL. (R) IJ TRIPLE LUMEN CATH NOTED IN PLACE. SEXTON CATHETER IN PLACE AND DRAINING YELLOW URINE TO GRAVITY. BED ALARMED ON AND LOCKED AT ALL TIMES. CALL LIGHT WITHIN REACH. NEEDS ANTICIPATED.WILL CONTINUE TO MONITOR CLOSELY.
[2018-09-13] VITALS (21 sets, daily range): BP systolic 103–144; BP diastolic 61–72
[2018-09-13] MEDS: BLOOD SUGAR DIAGNOSTIC 1 EACH STRIP IN SCH ×6 (01:16→20:22)
[2018-09-13] MEDS: MEROPENEM 1 G in IV NS 0.9% 100 ML IV SCH ×3 (01:17→18:04)
[2018-09-13] MEDS: GLUCERNA 1.2 1,000 ML BOTTLE NG PRN (05:06)
[2018-09-13] MEDS: INSULIN REGULAR, HUMAN 100 UNIT/ML 3 ML VIAL SQ PRN ×5 (05:29→20:22)
[2018-09-13 06:12] LABS: BASOPHILS % (AUTO) 0.3 % (0.0-2.0); EOSINOPHILS % (AUTO) 0.1 % (0.0-6.0); HEMATOCRIT 23 % (39-51); HEMOGLOBIN 7.6 g/dL (13.5-17.5); LYMPHOCYTES # (AUTO) 0.4 /CMM (0.8-4.8); LYMPHOCYTES % (AUTO) 3.9 % (20.0-44.0); MEAN CORPUSCULAR HGB CONC 33 g/dl (31.0-36.0); MEAN CORPUSCULAR VOLUME 86 fL (80-96); MONOCYTES # (AUTO) 0.1 /CMM (0.1-1.30); MONOCYTES % (AUTO) 1.4 % (2.0-12.0); NEUTROPHILS # (AUTO) 9.4 /CMM (1.8-8.9); NEUTROPHILS % (AUTO) 94.3 % (43.0-81.0); RED BLOOD CELL COUNT(AUTO) 2.62 MIL/uL (4.5-6.0)
[2018-09-13] MEDS: LORAZEPAM INJ 2 MG/ML VIAL IV PRN ×2 (06:21→14:12)
[2018-09-13 06:28] LABS: PLATELET COUNT (AUTO) 43 /CMM (150-450)
[2018-09-13 06:29] LABS: CALCIUM, SERUM 7.8 mg/dL (8.5-10.1); CREATININE 0.9 mg/dL (0.6-1.3); PHOSPHORUS 4.7 mg/dL (2.5-4.9); POTASSIUM 4.5 mmol/L (3.5-5.1)
[2018-09-13] MEDS: LACTOBACILLUS RHAMNOSUS GG 1 EACH CAP.SPRINK PO SCH ×2 (08:03→18:03)
[2018-09-13] MEDS: ACETAMINOPHEN 650 MG/SUPP.RECT RC PRN (08:03)
[2018-09-13] MEDS: FERROUS SULFATE (325 MG) 325 MG/TAB TABLET PO SCH ×2 (08:03→18:03)
[2018-09-13] MEDS: PANTOPRAZOLE 40 MG VIAL IV SCH (08:03)
[2018-09-13] MEDS: VANCOMYCIN 0.75 GM in IV D5W 250 ML IV SCH (08:04)
[2018-09-13] MEDS: MULTIVITAMINS,THERAGRAN 1 UDTAB TABLET GT SCH (08:12)
[2018-09-13] MEDS: ASCORBIC ACID 500 MG TABLET GT SCH (08:12)
[2018-09-13] MEDS: HYDROGEL DRESSING 90 GM TUBE TP SCH (08:15)
[2018-09-13] MEDS: Z GUARD REMEDY 2 OZ OINT TP SCH (08:16)
[2018-09-13] MEDS: DAKINS QUARTER STRENGTH (0.125%) 480 ML BOTTLE TOP SCH (08:17)
[2018-09-13 08:37] LABS: BAND % (MANUAL) 7 % (0.0-5.0); LYMPHOCYTES % (MANUAL) 5 % (16-48); MONOCYTES % (MANUAL) 4 % (0-11.0); NEUTROPHILS % (MANUAL) 84 (42-76)
[2018-09-13 09:52] LABS: ABG BASE EXCESS 1.6 mmol/L; ABG OXYGEN SATURATION 95.3 % (92.0-98.5); ABG PH 7.513 (7.350-7.450); ABG PO2 80.3 mmHg (75.0-100.0); AaDO2 169.3 mmHg; COHb 0.3 % (0.5-1.5); MetHb 0.6 % (0.0-1.5); O2Hb 94.4 % (94.0-97.0); PEEP,BG 0 cm H2O; SITE, ABG Left Brachial; VT, ABG 400 mL
[2018-09-13] MEDS ORDERED: FUROSEMIDE 20 MG/2 ML VIAL IV ONE (11:00)
--- NOTE | 2018-09-13 11:00 | NUR ---
PT. TRANSFERRED FROM 114 TO 251 DUE TO CHANGE OF CONDITION. PT USE SAME MECH VENT WITH SAME SETTINGS BELOW ORDER: AC 14 VT 400 FIO2 40% NO PEEP VENT PLUGGED INTO RED OUTLET WITH ALARMS ON AND FUNCTIONING. ESTHELA @ BEDSIDE. Addendum: 09/13/18 at 1102 by ANDREIA BELTRÁN RT Amended: Links added.
[2018-09-13] MEDS: IV D5/0.45 NACL 1,000 ML IV PRN ×2 (11:42→20:35)
[2018-09-13] MEDS: ALBUMIN 25% 25 GM in PREMIX 1 EA IV SCH ×4 (11:42→17:59)
--- NOTE | 2018-09-13 11:45 | NUR ---
RN NOTE TRANSERRED PT TO ICU PER ACLS PROTOCOL, PER MD ORDER, REPORT GIVEN TO MARINA DE LA ROSA FOR LEYDA.
--- NOTE | 2018-09-13 12:05 | NUR ---
CERTIFIED MEDICAL RECORDS CODER RECEIVED PATIENT FROM JOSEFINA LEVEL OF CARE. TACHYPNEA NOTED. SEEN BY BUCKLE STAPLER AND PRIMARY SCHOOL VOCATIONAL EDUCATOR. RN CLARIFIED IVF ORDERS, ALBUMIN ORDERS AND LASIX ORDERS WITH SCHOOL VOCATIONAL EDUCATOR. OBTUNDED NEURO STATUS. VENT SETTINGS REVIEWED AND VERIFIED. SUCTIONED TRACH FO CLEARANCE. SEXTON DRAINING URINE TO GRAVITY. TURNED AND REPOSITIONED FOR COMFORT AND WOUND PREVENTION. STABLE BP. AFEBRILE. WILL CONTINUE TO MONITOR AND PROVIDE CARE.
[2018-09-13] MEDS: FLUCONAZOLE (100 MG) 100 MG TABLET GT SCH (18:03)
--- NOTE | 2018-09-13 20:00 | NUR ---
TECHNOLOGY LEAD - NOTES - RECEIVED PATIENT OBTUNDED NEURO STATUS. VENT SETTINGS REVIEWED AND VERIFIED. SUCTIONED TRACH FOR CLEARANCE. SEXTON DRAINING URINE TO GRAVITY. TURNED AND REPOSITIONED FOR COMFORT AND WOUND PREVENTION. STABLE BP. AFEBRILE. WILL CONTINUE TO MONITOR AND PROVIDE CARE.
[2018-09-14] VITALS (57 sets, daily range): BP systolic 94–143; BP diastolic 47–128
[2018-09-14] MEDS: BLOOD SUGAR DIAGNOSTIC 1 EACH STRIP IN SCH ×6 (01:10→21:25)
[2018-09-14] MEDS: INSULIN REGULAR, HUMAN 100 UNIT/ML 3 ML VIAL SQ PRN ×6 (01:11→21:27)
[2018-09-14] MEDS: MEROPENEM 1 G in IV NS 0.9% 100 ML IV SCH ×3 (01:12→17:40)
[2018-09-14] MEDS: VANCOMYCIN 0.75 GM in IV D5W 250 ML IV SCH ×2 (02:27→21:18)
[2018-09-14 05:09] LABS: BASOPHILS % (AUTO) 0.6 % (0.0-2.0); LYMPHOCYTES # (AUTO) 0.4 /CMM (0.8-4.8); LYMPHOCYTES % (AUTO) 5.5 % (20.0-44.0); MEAN CORPUSCULAR HGB CONC 34 g/dl (31.0-36.0); MEAN CORPUSCULAR VOLUME 85 fL (80-96); MONOCYTES # (AUTO) 0.3 /CMM (0.1-1.30); MONOCYTES % (AUTO) 4.3 % (2.0-12.0); NEUTROPHILS # (AUTO) 7.2 /CMM (1.8-8.9); NEUTROPHILS % (AUTO) 89.6 % (43.0-81.0); PLATELET COUNT (AUTO) 59 /CMM (150-450); RED BLOOD CELL COUNT(AUTO) 2.07 MIL/uL (4.5-6.0); WHITE BLOOD COUNT (AUTO) 8.1 K/uL (4.3-11.0)
[2018-09-14 05:37] LABS: HEMATOCRIT 18 % (39-51)
[2018-09-14 05:40] LABS: CALCIUM, SERUM 6.8 mg/dL (8.5-10.1); CREATININE 1.1 mg/dL (0.6-1.3); MAGNESIUM 2.2 mg/dL (1.8-2.4); PHOSPHORUS 4.7 mg/dL (2.5-4.9); POTASSIUM 3.7 mmol/L (3.5-5.1)
--- NOTE | 2018-09-14 05:49 | NUR ---
critical lab values hgb 6.0 and hct 18, blood tinged secretions coming from trach when suctioning. dr crooks notified new orders received.
--- NOTE | 2018-09-14 07:30 | NUR ---
RN NOTES RECEIVED PATIENT, RESPONSIVE ONLY TO PAINFUL STIMULI, CONTINUED ON VENTILATOR TOLERATING WELL. IN NO APPARENT PAIN OR DISCOMFORT AT THIS TIME. SEXTON CATHETER DRAINING TEA COLORED URINE. RIJ AND R HAND IV ACCESS PATENT AND INTACT NO REDNESS OR INFILTRATION NOTED. KEPT CLEAN DRY AND COMFORTABLE CALL LIGHT WITHIN EASY REACH
--- NOTE | 2018-09-14 08:30 | NUR ---
RN NOTES/CXR CXR WITH PNEUMOTHORAX SUSPECTED RELAYED TO DR. MARTE, WILL CONSULT WITH DR. ABAD FOR CHEST TUBE PLACEMENT
[2018-09-14 09:09] LABS: BAND % (MANUAL) 11 % (0.0-5.0); LYMPHOCYTES % (MANUAL) 5 % (16-48); MONOCYTES % (MANUAL) 2 % (0-11.0); NEUTROPHILS % (MANUAL) 82 (42-76)
[2018-09-14] MEDS: ASCORBIC ACID 500 MG TABLET GT SCH (09:11)
[2018-09-14] MEDS: PANTOPRAZOLE 40 MG VIAL IV SCH (09:11)
[2018-09-14] MEDS: LACTOBACILLUS RHAMNOSUS GG 1 EACH CAP.SPRINK PO SCH ×2 (09:11→17:34)
[2018-09-14] MEDS: MULTIVITAMINS,THERAGRAN 1 UDTAB TABLET GT SCH (09:11)
[2018-09-14] MEDS: FERROUS SULFATE (325 MG) 325 MG/TAB TABLET PO SCH ×2 (09:11→17:34)
[2018-09-14] MEDS: DAKINS QUARTER STRENGTH (0.125%) 480 ML BOTTLE TOP SCH (10:10)
[2018-09-14] MEDS: HYDROGEL DRESSING 90 GM TUBE TP SCH (10:11)
[2018-09-14] MEDS: Z GUARD REMEDY 2 OZ OINT TP SCH (10:11)
[2018-09-14] MEDS: IV D5/0.45 NACL 1,000 ML IV PRN (11:23)
--- NOTE | 2018-09-14 12:00 | NUR ---
RN NOTES/CHEST TUBE [address] BY DR. ABAD TOLERATED WELL, CONSENT RECEIVED BY DAUGHTER, ZAHRAA. 1200 NOTED WITH 1000CC OF SEROUS FLUID REMOVED, WILL CONTINUE TO MONITOR, VITAL SIGNS STABLE
[2018-09-14] MEDS: GLUCERNA 1.2 1,000 ML BOTTLE NG PRN (13:20)
[2018-09-14] MEDS: IV NS 0.9% 1,000 ML IV PRN (13:20)
[2018-09-14] MEDS: ACETAMINOPHEN 650 MG/SUPP.RECT RC PRN (13:55)
[2018-09-14] MEDS: FLUCONAZOLE (100 MG) 100 MG TABLET GT SCH (17:34)
[2018-09-14 17:37] LABS: OCCULT BLOOD STOOL NEGATIVE (NEGATIVE)
--- NOTE | 2018-09-14 19:30 | NUR ---
RN NOTES PATIENT, RESPONSIVE ONLY TO PAINFUL STIMULI, CONTINUED ON VENTILATOR TOLERATING WELL. IN NO APPARENT PAIN OR DISCOMFORT AT THIS TIME. SEXTON CATHETER DRAINING TEA COLORED URINE. RIJ AND R HAND IV ACCESS PATENT AND INTACT NO REDNESS OR INFILTRATION NOTED. CHEST TUBE IN PLACE, NOTED WITH 1500CC OF SEROUS FLUID REMOVED SINCE INSERTION. KEPT CLEAN DRY AND COMFORTABLE CALL LIGHT WITHIN EASY REACH, ENDORSED TO NEXT SHIFT FOR CONTINUITY OF CARE
--- NOTE | 2018-09-14 20:50 | NUR ---
RECEIVED PT TRACHED SHLY 8 ON VENT. NO RESP DISTRESS NOTED. PT TOLERATING VENT SETTINGS. SX'D FOR MOD AMT OF THICK MONACO SECRETIONS. TRACH IS SECURED, CUFF IT WEB DEVELOPMENT CONSULTANT. VENT ALARMS SET AND AUDIBLE. AMBU BAG AT BEDSIDE. WILL CONTINUE TO MONITOR. Addendum: 09/14/18 at 2049 by LENI INTERIANO RT Amended: Links added.
[2018-09-15] VITALS (40 sets, daily range): BP systolic 98–140; BP diastolic 52–79
[2018-09-15] MEDS: MEROPENEM 1 G in IV NS 0.9% 100 ML IV SCH ×3 (00:25→16:22)
[2018-09-15] MEDS: BLOOD SUGAR DIAGNOSTIC 1 EACH STRIP IN SCH ×5 (00:30→23:59)
[2018-09-15] MEDS: INSULIN REGULAR, HUMAN 100 UNIT/ML 3 ML VIAL SQ PRN ×3 (00:34→17:25)
[2018-09-15] MEDS: IV NS 0.9% 1,000 ML IV PRN (03:00)
--- NOTE | 2018-09-15 04:05 | NUR ---
ABA THERAPIST PT IS OBTUNDED, RESPONSE ONLY TO PAINFUL STIMULI. CHRONIC TRACH. SHILEY # 8. VENT-AC 14, TV 400, FIO2 40%, PEEP 0. BILATERAL CRACKLES & RHONCHI. SMALL TO MODERATE AMT. THICK MONACO SECRETION. VSS, AFEBRILE, SCOPE-ST. LEFT CHEST TUBE DRAINED 350 ML OF SEROUS SECRETION. GT FEEDING GLUCERNA AT 600 ML/H. TOLERATES WELL. F/C DRAINS SUFFICIENT AMT. OF CLEAR YELLOW SECRETION. PT GOT TWICE PASTY BROWNISH STOOL. DRESSING ON SACRAL AREA CHANGED. FULL BATH GIVEN, ALL LINEN CHANGED. REPOSITIONED Q 2 HOURS. ACCU CHEK Q 4 HOURS WITH AGGRESSIVE SLIDING SCALE. MEDICATED ORDERED. WILL FOLLOW CLOSE MONITORING.
[2018-09-15 05:01] LABS: BASOPHILS % (AUTO) 0.3 % (0.0-2.0); HEMATOCRIT 25 % (39-51); HEMOGLOBIN 8.6 g/dL (13.5-17.5); LYMPHOCYTES # (AUTO) 0.5 /CMM (0.8-4.8); LYMPHOCYTES % (AUTO) 5.7 % (20.0-44.0); MEAN CORPUSCULAR HGB CONC 34 g/dl (31.0-36.0); MEAN CORPUSCULAR VOLUME 84 fL (80-96); MONOCYTES # (AUTO) 0.3 /CMM (0.1-1.30); MONOCYTES % (AUTO) 3.9 % (2.0-12.0); NEUTROPHILS # (AUTO) 7.2 /CMM (1.8-8.9); NEUTROPHILS % (AUTO) 90.1 % (43.0-81.0); PLATELET COUNT (AUTO) 77 /CMM (150-450); RED BLOOD CELL COUNT(AUTO) 3.01 MIL/uL (4.5-6.0)
[2018-09-15 05:34] LABS: CALCIUM, SERUM 7.6 mg/dL (8.5-10.1); CREATININE 0.9 mg/dL (0.6-1.3); PHOSPHORUS 3.6 mg/dL (2.5-4.9); POTASSIUM 3.9 mmol/L (3.5-5.1)
[2018-09-15 06:04] LABS: BAND % (MANUAL) 8 % (0.0-5.0); LYMPHOCYTES % (MANUAL) 5 % (16-48); NEUTROPHILS % (MANUAL) 87 (42-76)
[2018-09-15] MEDS: ASCORBIC ACID 500 MG TABLET GT SCH (08:33)
[2018-09-15] MEDS: HYDROGEL DRESSING 90 GM TUBE TP SCH (08:33)
[2018-09-15] MEDS: MULTIVITAMINS,THERAGRAN 1 UDTAB TABLET GT SCH (08:33)
[2018-09-15] MEDS: LACTOBACILLUS RHAMNOSUS GG 1 EACH CAP.SPRINK PO SCH ×2 (08:33→16:24)
[2018-09-15] MEDS: PANTOPRAZOLE 40 MG/PACK PACK GT SCH (08:33)
[2018-09-15] MEDS: Z GUARD REMEDY 2 OZ OINT TP SCH (08:33)
[2018-09-15] MEDS: DAKINS QUARTER STRENGTH (0.125%) 480 ML BOTTLE TOP SCH (08:34)
[2018-09-15] MEDS ORDERED: DEXTROSE 50%-WATER 50 ML DISP.SYRIN IV PRN (09:00)
[2018-09-15] MEDS: IV D5W 1,000 ML IV PRN (09:14)
--- NOTE | 2018-09-15 10:33 | NUR ---
RN NOTE 0720: Received patient with trache to vent, tolerated settings, RR 30's, MD aware. S/E by Dr. Tam, with order of february transfer to Tele, made CN aware. With left CT, draining well, yellowish pleural fluid. RIJ TLC. GT on Glucerna @ [address] 110's. Responds only to pain, pupils sluggish. 0950: S/E by Dr. Grubbs, with order to hold transfer order for still with episodes of tachypnea. changed order of Ativan to q1. 1030: No any significant changes noted. Will continue POC.
[2018-09-15] MEDS ORDERED: LORAZEPAM INJ 2 MG/ML VIAL IV PRN (11:00)
--- NOTE | 2018-09-15 11:30 | NUR ---
RN NOTES RECEIVED PT ON BED, VENT/TRACH DEPENDENT, NON VERBAL , TOLERATING CURRENT VENT SETTING WELL, ON TELE ST HR IN 100'S. SEXTON DRINING TO GRAVITY, L CHEST TUBE DRINING WITH YELLOWISH PLEURAL FLUID, R NECK TLC SITE CLEAN ,DRY AND INTACT, GLUCERNA AT 60CC/HR RUNNING VIA GT , NO RESIDUAL NOTED, SR UP x3, CALL LIGHT WITHIN EASY REACH, BED LOCKED AND IN LOWEST POSITION ,CONTINUE TO MONITOR .
[2018-09-15] MEDS: ACETAMINOPHEN 650 MG/SUPP.RECT RC PRN (12:10)
--- NOTE | 2018-09-15 12:10 | NUR ---
RN NOTES T=101.2 TYLENOL SUPPOSITORY GIVEN ,CONTINUE COOLING MEASURES , AURELIA FAST FOOD CASHIER NOTIFED,
[2018-09-15] MEDS: GLUCERNA 1.2 1,000 ML BOTTLE NG PRN (13:33)
[2018-09-15] MEDS: SOD FERRIC GLUC 125 MG in IV NS 0.9% 100 ML IV SCH (13:51)
[2018-09-15] MEDS: VANCOMYCIN 0.75 GM in IV D5W 250 ML IV SCH (15:14)
--- NOTE | 2018-09-15 15:37 | NUR ---
RN NOTES REPORT GIVEN TO LUIS A DE LA ROSA FOR CONTINUITY OF CARE .
--- NOTE | 2018-09-15 16:50 | NUR ---
pt is resting in the bed, lethargic, follows simple commands, SR, on the vent, lungs congested, BL hand edema, L chest tube intact no air leak, GT to feeding, tolerates well, f/c good output, v/s stable, no pain, pt cleaned, changed and repositioned q2hrs.
[2018-09-15] MEDS: FLUCONAZOLE (100 MG) 100 MG TABLET GT SCH (17:16)
--- NOTE | 2018-09-15 17:24 | NUR ---
RT NOTE: PATIENT RECEIVED WITH #8 SHILEY TRACH ON PB 840 VENT. SUCTIONED AND LAVAGED LARGE AMOUNT OF THICK MONACO SECRETIONS. ALARMS VERIFIED AND AUDIBLE. VENT PLUGGED INTO RED OUTLET. AMBU BAG AT [facility].
--- NOTE | 2018-09-15 19:26 | NUR ---
RECEIVED PT TRACHED SHLY 8 ON VENT WITH NOTED SETTINGS. PT IS AWAKE AND NON RESPONSIVE TO VERBAL COMMANDS. NO RESP DISTRESS NOTED. PT TOLERATING VENT SETTINGS. SUCTIONED MOD AMT OF THICK MONACO SECRETIONS. TRACH IS SECURED, CUFF DEMAND PLANNER. VENT PLUGGED INTO RED OUTLET. VENT ALARMS SET AND AUDIBLE. AMBU BAG AT BEDSIDE. WILL CONTINUE TO MONITOR.
[2018-09-16] VITALS (34 sets, daily range): BP systolic 94–130; BP diastolic 49–80
[2018-09-16] MEDS: MEROPENEM 1 G in IV NS 0.9% 100 ML IV SCH ×3 (00:02→16:48)
[2018-09-16] MEDS ORDERED: ACETAMINOPHEN 650 MG/20.3 ML UDC ONE (00:27)
[2018-09-16] MEDS: ACETAMINOPHEN 650 MG/20.3 ML UDC GT PRN (00:34)
[2018-09-16 05:13] LABS: BASOPHILS % (AUTO) 0.5 % (0.0-2.0); HEMATOCRIT 26 % (39-51); HEMOGLOBIN 8.6 g/dL (13.5-17.5); LYMPHOCYTES # (AUTO) 0.4 /CMM (0.8-4.8); LYMPHOCYTES % (AUTO) 10.3 % (20.0-44.0); MEAN CORPUSCULAR HGB CONC 34 g/dl (31.0-36.0); MEAN CORPUSCULAR VOLUME 85 fL (80-96); MONOCYTES # (AUTO) 0.2 /CMM (0.1-1.30); MONOCYTES % (AUTO) 4.8 % (2.0-12.0); NEUTROPHILS # (AUTO) 3.5 /CMM (1.8-8.9); NEUTROPHILS % (AUTO) 84.4 % (43.0-81.0); PLATELET COUNT (AUTO) 85 /CMM (150-450); WHITE BLOOD COUNT (AUTO) 4.1 K/uL (4.3-11.0)
[2018-09-16] MEDS: BLOOD SUGAR DIAGNOSTIC 1 EACH STRIP IN SCH ×4 (05:15→23:16)
[2018-09-16] MEDS: INSULIN REGULAR, HUMAN 100 UNIT/ML 3 ML VIAL SQ PRN ×5 (05:17→23:24)
[2018-09-16 05:32] LABS: ALANINE AMINOTRANSFERASE 40 U/L (12-78); ALKALINE PHOSPHATASE 302 U/L (46-116); ASPARTATE AMINOTRANSFERASE 52 U/L (15-37); BILIRUBIN,TOTAL 0.6 mg/dL (0.2-1.0); CALCIUM, SERUM 7.7 mg/dL (8.5-10.1); CARBON DIOXIDE 30 mmol/L (21-32); CHLORIDE 116 mmol/L (98-107); GLUCOSE 288 mg/dL (74-106); MAGNESIUM 2.1 mg/dL (1.8-2.4); PHOSPHORUS 3.8 mg/dL (2.5-4.9); POTASSIUM 3.7 mmol/L (3.5-5.1); SODIUM SERUM 151 mmol/L (136-145); TOTAL PROTEIN, SERUM 5.3 g/dL (6.4-8.2); UREA NITROGEN, BLOOD 36 mg/dL (7-18)
[2018-09-16 05:47] LABS: ALBUMIN 1.1 g/dL (3.4-5.0)
[2018-09-16 06:05] LABS: BAND % (MANUAL) 15 % (0.0-5.0); LYMPHOCYTES % (MANUAL) 8 % (16-48); MONOCYTES % (MANUAL) 2 % (0-11.0)
[2018-09-16 06:06] LABS: NEUTROPHILS % (MANUAL) 75 (42-76)
--- NOTE | 2018-09-16 06:56 | NUR ---
RN NOTE PATIENT IS STABLE, NO RESPIRATORY DISTRESS NOTED, ALL SAFETY MEASURES TAKEN, TURNED AND REPOSITIONED Q 2 HOURS, REPORT PROVIDED TO AM SHIFT
--- NOTE | 2018-09-16 08:07 | NUR ---
received pt from night nurse, lethargic, follows simple commands at times, SR, on the vent, lungs congested, L chest tubed intact no leak noted, BL hand edema, GT to feeding tolerates well, f/c good output, v/s stable, no pain, pt turned and repositioned.
[2018-09-16] MEDS: LACTOBACILLUS RHAMNOSUS GG 1 EACH CAP.SPRINK PO SCH ×2 (08:22→16:48)
[2018-09-16] MEDS: PANTOPRAZOLE 40 MG/PACK PACK GT SCH (08:22)
[2018-09-16] MEDS: ASCORBIC ACID 500 MG TABLET GT SCH (08:22)
[2018-09-16] MEDS: MULTIVITAMINS,THERAGRAN 1 UDTAB TABLET GT SCH (08:22)
[2018-09-16] MEDS: DAKINS QUARTER STRENGTH (0.125%) 480 ML BOTTLE TOP SCH (08:23)
[2018-09-16] MEDS: HYDROGEL DRESSING 90 GM TUBE TP SCH (08:23)
[2018-09-16] MEDS: Z GUARD REMEDY 2 OZ OINT TP SCH (08:24)
[2018-09-16] MEDS: VANCOMYCIN 0.75 GM in IV D5W 250 ML IV SCH (08:30)
[2018-09-16 08:59] LABS: ABG BASE EXCESS 3.6 mmol/L; ABG OXYGEN SATURATION 93.6 % (92.0-98.5); ABG PCO2 38.9 mmHg (35.0-45.0); ABG PH 7.467 (7.350-7.450); ABG PO2 74.7 mmHg (75.0-100.0); AaDO2 165.8 mmHg; COHb 0.3 % (0.5-1.5); MetHb 0.6 % (0.0-1.5); O2Hb 92.8 % (94.0-97.0); SITE, ABG Right Radial; VT, ABG 400 mL
[2018-09-16] MEDS: IV D5W 1,000 ML IV PRN (12:11)
--- NOTE | 2018-09-16 12:19 | NUR ---
pt is resting in the bed, v/s stable, no pain, pt turned and repositioned q2hrs.
[2018-09-16] MEDS: SOD FERRIC GLUC 125 MG in IV NS 0.9% 100 ML IV SCH (13:36)
--- NOTE | 2018-09-16 16:09 | NUR ---
pt is resting in the bed, lethargic, SR, ST, tolerates feeding, good urine output, v/s stable, no pain, pt cleaned, changed and repositioned q2hrs.
[2018-09-16] MEDS: FLUCONAZOLE (100 MG) 100 MG TABLET GT SCH (17:07)
--- NOTE | 2018-09-16 19:29 | NUR ---
PRECAST WORKER. INITIAL ASSESSMENT. RECEIVED THE PT REST ON THE BED. TRACH TO VENT CONNECTED. PT AWAKE, OPEN EYES. DOES NOT FOLLOW COMMANDS. SHILEY#8, AC 14,TV 400, FIO2 40%. SAT 94%. SNAKE CHARMER SHOWING S TACH. IV RT IJ TLC. IVF D5W 70ML/H, GT INTACT. GLUCERNA 60ML/H,LT SIDE CHEST TUBE INTACT. HOB ELEVATED.FC PATENT. TURN AND REPOSITION Q2H. WILL CONTINUE TO MONITOR VITALS.
--- NOTE | 2018-09-16 19:57 | NUR ---
RECEIVED ON VENT SUPPORT, NO RESP DISTRESS, PT TOLERATING VENT SETTINGS. SX'D FOR MOD AMT OF THICK WHITE SECRETIONS. VENT ALARMS SET AND AUDIBLE. AMBU BAG AT BEDSIDE. VENT PLUGGED INTO RED OUTLET. WILL CONTINUE TO MONITOR. Addendum: 09/16/18 at 7 by AMINATA YOON RT Amended: Links added.
[2018-09-17] VITALS (36 sets, daily range): BP systolic 104–152; BP diastolic 55–81
[2018-09-17] MEDS: MEROPENEM 1 G in IV NS 0.9% 100 ML IV SCH ×2 (00:11→08:29)
[2018-09-17] MEDS: VANCOMYCIN 0.75 GM in IV D5W 250 ML IV SCH (03:10)
--- NOTE | 2018-09-17 03:23 | NUR ---
WASTE MACHINE TENDER. AM CARE, ORAL CARE, BED BATH GIVEN. LINEN CHANGED. REMAINING SAME VENT SETTING TOLERATED WELL. SAT 97%. MANGANESE BREAKER SHOWING S TACH. RATE IS 102. HOB ELEVATED, GT FEEDING TOLERATED WELL. LT CHEST TUBE FUNCTIONING WELL. NO AIR LEAK NOTED. FC PATENT. URINE DRAINING. TURN AND REPOSITION Q2H. WILL CONTINUE TO MONITOR VITALS.
[2018-09-17 05:03] LABS: BASOPHILS % (AUTO) 0.1 % (0.0-2.0); EOSINOPHILS % (AUTO) 0.1 % (0.0-6.0); HEMATOCRIT 25 % (39-51); HEMOGLOBIN 8.5 g/dL (13.5-17.5); LYMPHOCYTES # (AUTO) 0.4 /CMM (0.8-4.8); LYMPHOCYTES % (AUTO) 8.3 % (20.0-44.0); MEAN CORPUSCULAR HGB CONC 34 g/dl (31.0-36.0); MEAN CORPUSCULAR VOLUME 86 fL (80-96); MONOCYTES # (AUTO) 0.2 /CMM (0.1-1.30); MONOCYTES % (AUTO) 3.9 % (2.0-12.0); NEUTROPHILS # (AUTO) 4.6 /CMM (1.8-8.9); NEUTROPHILS % (AUTO) 87.6 % (43.0-81.0); PLATELET COUNT (AUTO) 108 /CMM (150-450); RED BLOOD CELL COUNT(AUTO) 2.94 MIL/uL (4.5-6.0); WHITE BLOOD COUNT (AUTO) 5.3 K/uL (4.3-11.0)
[2018-09-17] MEDS: BLOOD SUGAR DIAGNOSTIC 1 EACH STRIP IN SCH ×3 (05:16→17:21)
[2018-09-17] MEDS: IV D5W 1,000 ML IV PRN ×2 (05:16→18:29)
[2018-09-17] MEDS: ACETAMINOPHEN 650 MG/20.3 ML UDC GT PRN (05:16)
[2018-09-17] MEDS: INSULIN REGULAR, HUMAN 100 UNIT/ML 3 ML VIAL SQ PRN ×3 (05:19→17:27)
[2018-09-17 05:23] LABS: CALCIUM, SERUM 7.5 mg/dL (8.5-10.1); CREATININE 0.9 mg/dL (0.6-1.3); MAGNESIUM 1.8 mg/dL (1.8-2.4); PHOSPHORUS 3.6 mg/dL (2.5-4.9); POTASSIUM 4.3 mmol/L (3.5-5.1)
[2018-09-17 05:28] LABS: BAND % (MANUAL) 21 % (0.0-5.0); LYMPHOCYTES % (MANUAL) 13 % (16-48); MONOCYTES % (MANUAL) 6 % (0-11.0); NEUTROPHILS % (MANUAL) 60 (42-76)
--- NOTE | 2018-09-17 07:10 | NUR ---
RN INITIAL NOTES: Rec'd pt awake on bed. On MV via trach, sating at 100% though tachypneic. ST on telemonitor. Has R IJ TLC, w/ D5W x 70 cc/hr infusing well. Has GT patent & intact, on cont GTF Glucerna 1.2 x 60 cc/hr, no residual noted upon checking. Has FC draining to adequate UOP. Provided comfort & safety measures. Bed kept low & in locked pos. Call light placed w/in reach. Will cont to monitor & attend pt needs.
[2018-09-17] MEDS ORDERED: DEXTROSE 50%-WATER 50 ML DISP.SYRIN IV PRN (07:30)
[2018-09-17] MEDS: ASCORBIC ACID 500 MG TABLET GT SCH (08:29)
[2018-09-17] MEDS: DAKINS QUARTER STRENGTH (0.125%) 480 ML BOTTLE TOP SCH (08:29)
[2018-09-17] MEDS: PANTOPRAZOLE 40 MG/PACK PACK GT SCH (08:29)
[2018-09-17] MEDS: LACTOBACILLUS RHAMNOSUS GG 1 EACH CAP.SPRINK PO SCH ×2 (08:29→17:21)
[2018-09-17] MEDS: HYDROGEL DRESSING 90 GM TUBE TP SCH (08:29)
[2018-09-17] MEDS: MULTIVITAMINS,THERAGRAN 1 UDTAB TABLET GT SCH (08:29)
[2018-09-17] MEDS: Z GUARD REMEDY 2 OZ OINT TP SCH (08:29)
--- NOTE | 2018-09-17 09:22 | NUR ---
Pt seen & examined by ARI Dee.
[2018-09-17] MEDS: SOD FERRIC GLUC 125 MG in IV NS 0.9% 100 ML IV SCH (14:47)
[2018-09-17] MEDS: GLUCERNA 1.2 1,000 ML BOTTLE NG PRN (14:53)
[2018-09-17] MEDS ORDERED: FEE PK DOSING 1 MIN EA MC ONE (16:42)
[2018-09-17] MEDS ORDERED: CEFEPIME 1 GM in IV D5W 50 ML IV SCH (17:00)
[2018-09-17] MEDS: FLUCONAZOLE (100 MG) 100 MG TABLET GT SCH (17:21)
[2018-09-17] MEDS ORDERED: GENTAMICIN 100 MG in IV D5W 50 ML IV SCH (18:00)
[2018-09-17] MEDS: GENTAMICIN 80 MG in IV D5W 50 ML IV SCH (18:12)
--- NOTE | 2018-09-17 18:37 | NUR ---
RN CLOSING NOTES: No acute changes noted w/in shift. Pt tolerated current MV settings via trach. Pt is still ST on telemonitor. R IJ TLC, kept patent & intact w/ D5W x 70 cc/hr infusing well. GT kept patent & intact, tolerated cont GTF Glucerna 1.2 x 60 cc/hr, no residual noted w/in shift. FC kept draining to BSB w/ adequate UOP. Kept well rested. Needs attended. Bed kept low & in locked pos. Call light placed w/in reach. Will endorse to PM RN for LEYDA.
--- NOTE | 2018-09-17 19:15 | NUR ---
PT RECEIVED TRACH SHILEY 8 ON THE VENT WITH NOTED SETTINGS. PT IS AWAKE, NON RESPONSIVE TO VERBAL COMMANDS. VENT PLUGGED INTO RED OUTLET, VENT ALARMS ARE SET AND AUDIBLE WITH AMBU BAG@ BEDSIDE. SOIL SURVEYOR CUFF PRESSURE NOTED. TRACH PATENT AND SECURED. SUCTIONED COPIOUS AMOUNT OF MONACO THICK SECRETIONS. NO RESPIRATORY DISTRESS NOTED AT THIS TIME.
--- NOTE | 2018-09-17 19:30 | NUR ---
SEWING MACHINE OPERATOR PAPER BAGS INITIAL SHIFT NOTES RECEIVED PATIENT IN BED, ASLEEP, EYES CLOSED. PER DAY SHIFT NURSE, PT IS TACHYPNEIC AND TACHYCARDIC AT BASELINE. ON MECHANICAL VENTILATION VIA TRACH, TOLERATING FAIRLY, REMAINS TACHYPNEIC. SR ON BEDSIDE DAIRY FARM SUPERVISOR. SEXTON CATHETER PATENT AND INTACT, DRAINING CLEAR YELLOW URINE VIA GRAVITY. LEFT SIDED CHEST, TUBE, ON CONTINUOUS -20CM SUCTION, WITH MINIMAL SEROUS OUTPUT. CALL LIGHT WITHIN EASY REACH, BED IN LOWEST NAD LOCKED POSITION. WILL CONTINUE TO CLOSELY MONITOR
[2018-09-17] MEDS: CEFEPIME 2 GM in IV D5W 100 ML IV SCH (19:43)
--- NOTE | 2018-09-17 20:45 | NUR ---
SCALE ADJUSTER NOTES PATIENT APPEARS CALM, BUT VS SHOW S/S OF AGITATION/RESTLESSNESS. HR 112, RR 45. ATIVAN 1MG ADMINISTERED ORDERED. WILL MONITOR PATIENT CLOSELY
[2018-09-18] VITALS (35 sets, daily range): BP systolic 89–119; BP diastolic 50–76
[2018-09-18] MEDS: BLOOD SUGAR DIAGNOSTIC 1 EACH STRIP IN SCH ×4 (00:25→17:11)
[2018-09-18] MEDS: INSULIN REGULAR, HUMAN 100 UNIT/ML 3 ML VIAL SQ PRN ×4 (00:32→17:28)
[2018-09-18] MEDS: GENTAMICIN 80 MG in IV D5W 50 ML IV SCH ×2 (04:05→16:10)
[2018-09-18 04:34] LABS: BASOPHILS % (AUTO) 0.3 % (0.0-2.0); EOSINOPHILS % (AUTO) 0.3 % (0.0-6.0); HEMATOCRIT 23 % (39-51); HEMOGLOBIN 7.4 g/dL (13.5-17.5); LYMPHOCYTES # (AUTO) 0.4 /CMM (0.8-4.8); LYMPHOCYTES % (AUTO) 7.1 % (20.0-44.0); MEAN CORPUSCULAR HGB CONC 32 g/dl (31.0-36.0); MEAN CORPUSCULAR VOLUME 87 fL (80-96); MONOCYTES # (AUTO) 0.2 /CMM (0.1-1.30); MONOCYTES % (AUTO) 2.8 % (2.0-12.0); NEUTROPHILS # (AUTO) 4.9 /CMM (1.8-8.9); NEUTROPHILS % (AUTO) 89.5 % (43.0-81.0); PLATELET COUNT (AUTO) 107 /CMM (150-450); RED BLOOD CELL COUNT(AUTO) 2.62 MIL/uL (4.5-6.0); WHITE BLOOD COUNT (AUTO) 5.4 K/uL (4.3-11.0)
[2018-09-18] MEDS: CEFEPIME 2 GM in IV D5W 100 ML IV SCH ×3 (04:42→21:35)
[2018-09-18 04:43] LABS: CALCIUM, SERUM 7.3 mg/dL (8.5-10.1); CREATININE 0.8 mg/dL (0.6-1.3); MAGNESIUM 1.9 mg/dL (1.8-2.4); PHOSPHORUS 3.6 mg/dL (2.5-4.9); POTASSIUM 4.3 mmol/L (3.5-5.1)
[2018-09-18 04:54] LABS: BAND % (MANUAL) 18 % (0.0-5.0); LYMPHOCYTES % (MANUAL) 7 % (16-48); MONOCYTES % (MANUAL) 3 % (0-11.0); NEUTROPHILS % (MANUAL) 72 (42-76)
[2018-09-18] MEDS: ACETAMINOPHEN 650 MG/20.3 ML UDC GT PRN (05:27)
--- NOTE | 2018-09-18 06:30 | NUR ---
SUGAR COATING HAND CLOSING NOTES PATIENT RESTING IN BED, S/P TYLENOL ADMINISTRATION, TEMP NOW 99.1. CONTINUES WITH TRACH ON MECHANICAL VENTILATOR. CHEST TUEB REMAINS ON CONTINUOUS -20CM SUCTION, NOTED WITH APPROXIMATELY 20ML OF SEROUS OUTPUT. WILL ENDORSE THE PATIENT TO THE AM SHIFT NURSE FOR CONTINUITY OF CARE
--- NOTE | 2018-09-18 07:45 | NUR ---
ICU/RN: Pt received on mech/vent, tolerating current settings well, drowsy, responds to name and touch, able to follow some commands. L sided CT in place, no air leaks noted, dressing C/D/I draining serous fluid. TF tolerated well with 10cc residuals. FC draining well to gravity. Alarm sounds audible. Will cont to monitor pt status.
[2018-09-18] MEDS: ASCORBIC ACID 500 MG TABLET GT SCH (08:27)
[2018-09-18] MEDS: LACTOBACILLUS RHAMNOSUS GG 1 EACH CAP.SPRINK PO SCH ×2 (08:27→16:09)
[2018-09-18] MEDS: PANTOPRAZOLE 40 MG/PACK PACK GT SCH (08:27)
[2018-09-18] MEDS: MULTIVITAMINS,THERAGRAN 1 UDTAB TABLET GT SCH (08:27)
[2018-09-18] MEDS: Z GUARD REMEDY 2 OZ OINT TP SCH (08:27)
[2018-09-18] MEDS: HYDROGEL DRESSING 90 GM TUBE TP SCH (08:27)
[2018-09-18] MEDS: DAKINS QUARTER STRENGTH (0.125%) 480 ML BOTTLE TOP SCH (08:32)
--- NOTE | 2018-09-18 09:30 | NUR ---
ICU/RN: Dr Grubbs rounds; labs, imaging, CT output reported to MD. CXR shows recurrent L sided PTX 30%. New orders noted and carried out.
[2018-09-18 09:54] LABS: ABG BASE EXCESS 3.5 mmol/L; ABG PCO2 42.4 mmHg (35.0-45.0); ABG PH 7.438 (7.350-7.450); ABG PO2 71.2 mmHg (75.0-100.0); AaDO2 165.2 mmHg; COHb 0.3 % (0.5-1.5); MetHb 0.9 % (0.0-1.5); O2Hb 91.9 % (94.0-97.0); PEEP,BG 0 cm H2O; SITE, ABG Right Radial; VT, ABG 400 mL
[2018-09-18] MEDS: IV D5W 1,000 ML IV PRN (11:05)
[2018-09-18] MEDS: GLUCERNA 1.2 1,000 ML BOTTLE NG PRN (11:13)
--- NOTE | 2018-09-18 11:45 | NUR ---
ICU/RN: Lelia Grant, AUTO DRIVER rounds; updated on pt status. Labs reviewed, per AUTO DRIVER continue 250cc free water flushes q4h; cont IVF. Noted and carried out.
[2018-09-18] MEDS: SOD FERRIC GLUC 125 MG in IV NS 0.9% 100 ML IV SCH (13:06)
--- NOTE | 2018-09-18 13:27 | NUR ---
ICU/RN: Leila Grant NP notified of home meds pending review. Awaiting orders.
[2018-09-18] MEDS: PROSOURCE / PROSTAT (PYXIS) 30 ML UDC GT SCH (15:48)
[2018-09-18] MEDS: LEVETIRACETAM SOL (5 ML) 100 MG/ML UDC PO SCH (16:13)
--- NOTE | 2018-09-18 16:45 | NUR ---
ICU/RN: Seen by Dr Adams, updated on pt status. Plan for possible wound debridement once out of the ICU. No new orders.
[2018-09-18] MEDS: FLUCONAZOLE (100 MG) 100 MG TABLET GT SCH (17:11)
--- NOTE | 2018-09-18 17:32 | NUR ---
RT END OF THE SHIFT REPORT: PT. 58 Y OLD MALE REMAIN TRACH'D SHILEY # 8 WITH NOTED SETTINGS, ALARMS ARE SET AND FUNCTIONAL, NO RESP. DISTRESS NOTED T/O SHIFT EQUAL CHEST RISE NOTED. B/S BILATERALLY RHONCHI SUX'D FOR LARGE AMT OF BROWNISH SECRETIONS, PT. REMAIN STABLE. NO VENT CHANGES DONE POST ABG PER DR. MARTE. HME CHANGED AMBU BAG REMAIN AT THE BEDSIDE, VENT PLUGGED INTO RED OUTLET. REPORT WILL PASS TO PM SHIFT. Addendum: 09/18/18 at 1733 by HERIBERTO LEE RT Amended: Links added.
--- NOTE | 2018-09-18 19:15 | NUR ---
ICU/RN RECEIVED PT ON VENT PER TRACH FI02 100%,SAT OF 98%.OPENS EYES WHEN NAME CALLED,DOES NOT,DOES NOT FOLLOW COMMANDS.TOLERATING TUBE FEEDING WELL,NO RESIDUAL OBTAINED.SUCTIONED FOR MODERATE AMT ON THICK,MONACO-COLORED SECRETIONS FROM TRACK AND LARGE AMT ORAL SECRETIONS.ORAL CARE DONE W/ DIFFICULTY.1 CT TO LT.MID LATERAL CHEST ON 30CM SUCTION VIA [facility].CHEST DRESSING DRY AND INTACT.
--- NOTE | 2018-09-18 20:23 | NUR ---
RECEIVED PT TRACHED SHLY 8 ON VENT. PT TOLERATING VENT SETTINGS. SX'D FOR LARGE AMT OF THICK CREAMY MONACO SECRETIONS. VENT ALARMS SET AND AUDIBLE. AMBU BAG AT BEDSIDE. VENT PLUGGED INTO RED OUTLET. WILL CONTINUE TO MONITOR. Addendum: 09/18/18 at 2023 by LENI INTERIANO RT Amended: Links added.
[2018-09-19] VITALS (28 sets, daily range): BP systolic 87–135; BP diastolic 49–72
[2018-09-19] MEDS: INSULIN REGULAR, HUMAN 100 UNIT/ML 3 ML VIAL SQ PRN ×5 (01:14→23:43)
[2018-09-19] MEDS: IV D5W 1,000 ML IV PRN ×2 (02:26→20:19)
--- NOTE | 2018-09-19 04:00 | NUR ---
ICU/RN INCONTINENT OF LARGE PASTY-GRAINY STOOL,CLEANSED AND DRAW SHEET CHANGED.3 MEPILEX TO SACRUM AND 1 TO LOWER BUTTOCKS REPLACED.
[2018-09-19 05:11] LABS: BASOPHILS % (AUTO) 0.1 % (0.0-2.0); EOSINOPHILS % (AUTO) 0.4 % (0.0-6.0); HEMATOCRIT 21 % (39-51); LYMPHOCYTES # (AUTO) 0.3 /CMM (0.8-4.8); LYMPHOCYTES % (AUTO) 6.8 % (20.0-44.0); MEAN CORPUSCULAR HGB CONC 33 g/dl (31.0-36.0); MEAN CORPUSCULAR VOLUME 87 fL (80-96); MONOCYTES # (AUTO) 0.3 /CMM (0.1-1.30); MONOCYTES % (AUTO) 5.4 % (2.0-12.0); NEUTROPHILS # (AUTO) 4.1 /CMM (1.8-8.9); NEUTROPHILS % (AUTO) 87.3 % (43.0-81.0); PLATELET COUNT (AUTO) 76 /CMM (150-450); RED BLOOD CELL COUNT(AUTO) 2.41 MIL/uL (4.5-6.0); WHITE BLOOD COUNT (AUTO) 4.7 K/uL (4.3-11.0)
[2018-09-19 05:26] LABS: CALCIUM, SERUM 7.2 mg/dL (8.5-10.1); CREATININE 0.8 mg/dL (0.6-1.3); MAGNESIUM 1.8 mg/dL (1.8-2.4); PHOSPHORUS 3.9 mg/dL (2.5-4.9); POTASSIUM 4.2 mmol/L (3.5-5.1)
--- NOTE | 2018-09-19 05:27 | NUR ---
ICU/RN REQUIRING FREQUENT SUCTIONING FR. TRACH AND FROM MOUTH,EACH TIME W/COPIOUS MONACO-COLORED FR TRACH.TRACH CARE DONE.MODERATE DRAINAGE AROUND TRACH STOMA.
[2018-09-19] MEDS: CEFEPIME 2 GM in IV D5W 100 ML IV SCH ×3 (05:35→20:20)
[2018-09-19 05:38] LABS: HEMOGLOBIN 6.9 g/dL (13.5-17.5)
[2018-09-19] MEDS: GLUCERNA 1.2 1,000 ML BOTTLE NG PRN (05:42)
[2018-09-19 05:47] LABS: BAND % (MANUAL) 31 % (0.0-5.0); LYMPHOCYTES % (MANUAL) 7 % (16-48); METAMYELOCYTES % 1 % (0-0); MONOCYTES % (MANUAL) 5 % (0-11.0); NEUTROPHILS % (MANUAL) 56 (42-76)
--- NOTE | 2018-09-19 06:28 | NUR ---
RESIDENTIAL DIRECTOR. PT H&H IS 6.9. ANDONIN MADE AWARE, ORDER IS H&H REPEAT 1000.
[2018-09-19] MEDS: BLOOD SUGAR DIAGNOSTIC 1 EACH STRIP IN SCH ×5 (06:30→23:40)
[2018-09-19] MEDS: GENTAMICIN 80 MG in IV D5W 50 ML IV SCH (06:31)
--- NOTE | 2018-09-19 07:00 | NUR ---
ICU/RN REPORT AND CARE OF PT. GIVEN TO SPENCER
--- NOTE | 2018-09-19 07:15 | NUR ---
RECEIVED CARE OF PATIENT FROM HILARY DE LA ROSA. PATIENT VSS. VENT TRACH DEPENDENT TOLERATING SETTINGS WELL. PER RN PATIENT HAS COPIOUS AMOUNTS OF SECRETIONS THROUGHOUT NIGHT; WILL MONITOR. IV SITE C/D/I/P/ GOOD BLOOD RETURN. SEXTON CATH IN PLACE DRAINING TO GRAVITY WITH ELENA CARE COMPLETED. PATIENT G TUBE WITH FEEDINGS PER ORDER WITH MINIMAL RESIDUAL NOTED. TELE NSR. LEFT CHEST TUBE IN PLACE AND WILL CLAMP PER DR MARTE ORDER AT 0730. PER RN 20ML FLUID OUTPUT FROM LAST HYDRATE THICKENER OPERATOR. T MAX 100.4 S/P TYLENOL AND 99.4 NOW. SAFETY, SKIN, ASPIRATION PRECAUTIONS IN PLACE. WILL MONITOR
--- NOTE | 2018-09-19 07:30 | NUR ---
CHEST TUBE CLAMPED PER MD ORDER. CHEST X ORDERED FOR 829
[2018-09-19] MEDS: PANTOPRAZOLE 40 MG/PACK PACK GT SCH (08:27)
[2018-09-19] MEDS: ATORVASTATIN 10 MG TABLET PO SCH (08:27)
[2018-09-19] MEDS: MULTIVITAMINS,THERAGRAN 1 UDTAB TABLET GT SCH (08:27)
[2018-09-19] MEDS: ASCORBIC ACID 500 MG TABLET GT SCH (08:27)
[2018-09-19] MEDS: LACTOBACILLUS RHAMNOSUS GG 1 EACH CAP.SPRINK PO SCH ×2 (08:27→17:11)
[2018-09-19] MEDS: LEVETIRACETAM SOL (5 ML) 100 MG/ML UDC PO SCH (08:27)
[2018-09-19] MEDS: Z GUARD REMEDY 2 OZ OINT TP SCH (08:29)
[2018-09-19] MEDS: HYDROGEL DRESSING 90 GM TUBE TP SCH (08:29)
[2018-09-19] MEDS: DAKINS QUARTER STRENGTH (0.125%) 480 ML BOTTLE TOP SCH (08:29)
--- NOTE | 2018-09-19 08:54 | NUR ---
DR MARTE REVIEWED CHEST X S/P CLAMPING OF CHEST TUBE. PENDING ORDERS
[2018-09-19] MEDS: PROSOURCE / PROSTAT (PYXIS) 30 ML UDC GT SCH (10:23)
[2018-09-19 11:16] LABS: HEMOGLOBIN 6.9 g/dL (13.5-17.5)
--- NOTE | 2018-09-19 11:18 | NUR ---
patient repeat hgb 6.9 will transfuse 1 unit per order. no s/s active bleeding
--- NOTE | 2018-09-19 13:33 | NUR ---
report given to sridevi pagan for jennyfer. patient pending transfer to [facility]
--- NOTE | 2018-09-19 14:00 | NUR ---
per amor pedroza to transfer patient with ongoing blood transfusion. vss. sridevi pagan taken over care of patient. room 113-2 [facility]
--- NOTE | 2018-09-19 14:00 | NUR ---
RN NOTES RECEIVED PT IN ROOM 113-2, FROM ICU , PT IS ALERT/ NONVERBAL, VENT/TRACH DEPENDENT ,TOLERATING CURRENT VENT SETTING WELL, ON TELE SR , ONE UNIT OF PRBC'S INFUSING VIA L IJ TLC , PT TOLERATING WELL,D5W AT 70CC/HR RUNNING , LEFT SIDE CHEST TUBE CLAMPED AT THIS TIME PER MD ORDER , SR UP x3, CALL LIGHT WITHIN EASY REACH, BED LOCKED AND IN LOWEST POSITION, CONTINUE TO MONITOR .
[2018-09-19] MEDS: SOD FERRIC GLUC 125 MG in IV NS 0.9% 100 ML IV SCH (14:22)
[2018-09-19] MEDS: FLUCONAZOLE (100 MG) 100 MG TABLET GT SCH (17:11)
[2018-09-19] MEDS: TOBRAMYCIN 80 MG in IV D5W 50 ML IV SCH (17:11)
--- NOTE | 2018-09-19 18:26 | NUR ---
RN NOTES TRACH SUCTIONING DONE , PT STABLE , NO SIGNIFICANT CHANGES NOTED , WILL ENDOSE TO SQUARE DANCE CALLER NURSE FOR CONTINUITY OF CARE .
--- NOTE | 2018-09-19 18:33 | NUR ---
RT END OF THE SHIFT REPORT: PT. 58 Y OLD MALE REMAIN TRACH'D SAMMIE # 8 WITH NOTED SETTINGS, ALARMS ARE SET AND FUNCTIONAL, NO RESP. DISTRESS NOTED T/O SHIFT EQUAL CHEST RISE NOTED. B/S BILATERALLY RHONCHI SUX'D FOR LARGE AMT OF BROWNISH SECRETIONS, PT. REMAIN STABLE. TRANSFERRED TO JOSEFINA HME CHANGED, AMBU BAG REMAIN AT THE BEDSIDE, VENT PLUGGED INTO RED OUTLET. REPORT WILL PASS TO PM SHIFT. Addendum: 09/19/18 at 1834 by HERIBERTO LEE RT Amended: Links added.
--- NOTE | 2018-09-19 19:30 | NUR ---
RN INTIAL SHIFT NOTES RECEIVED PATIENT IN BED, NONVERBAL, REACTIVE TO PAINFUL STIMULI, SOMETIMES TRACKS WITH EYES. TRACH MIDLINE AND INTACT, ON MECHANICAL VENT AT PRESCRIBED SETTINGS, TOLERATING WELL, FREE FROM ANY S/S OF RESPIRATORY DISTRESS, SUCTIONED FOR AIRWAY CLEARANCE, COPIOUS AMOUNTS OF BROWN SPUTUM. ON TELENMETRY MONITORING, SHOWING SINUS RHYTHM. GT PATENT AND INTACT, ON TUBE FEEDINGS AT PRESCRIBED RATE, TOLERATING WELL, MINIMAL GASTRIC RESIDUALS ATT HIS TIME. SEXTON CATHETER DRAINING TEA COLORED URINE BY GRAVITY. LEFT SIDE CHEST TUBE IN PLACE, ENDORSEMENT FROM DAY SHIFT FOR CT TO REMAIN CLAMPED, AND REASSESSED BY PULMONOLOGY TEAM IN AM. CT KEPT CLAMPED. CALL LIGHT LEFT WITHIN EASY REACH, BED IN LOWEST AND LOCKED POSITION. WILL CONTINUE TO CLOSELY MONITOR
--- NOTE | 2018-09-19 20:03 | NUR ---
RECEIVED PT TRACHED SHLY 8 ON VENT. PT TOLERATING VENT SETTINGS. SX'D FOR LARGE AMT OF THICK CREAMY MONACO SECRETIONS. VENT ALARMS SET AND AUDIBLE. AMBU BAG AT BEDSIDE. VENT PLUGGED INTO RED OUTLET. WILL CONTINUE TO MONITOR. Addendum: 09/19/18 at 2002 by AMINATA YOON RT Amended: Links added.
[2018-09-20] VITALS: BP 106/61
--- NOTE | 2018-09-20 | NUR ---
RN NOTES PATIENT NOTED WITH LARGE BM. BED BATH RENDERED, WOUND CARE ORDERED, TOLERATED WELL. WILL CONTINUE TO CLOSELY MONITOR
[2018-09-20 04:00] VITALS: BP 105/62
[2018-09-20] MEDS: BLOOD SUGAR DIAGNOSTIC 1 EACH STRIP IN SCH ×4 (05:43→23:25)
[2018-09-20] MEDS: CEFEPIME 2 GM in IV D5W 100 ML IV SCH ×3 (05:43→21:21)
[2018-09-20] MEDS: INSULIN REGULAR, HUMAN 100 UNIT/ML 3 ML VIAL SQ PRN ×4 (05:45→23:28)
[2018-09-20 06:07] LABS: CALCIUM, SERUM 7.2 mg/dL (8.5-10.1); CREATININE 0.8 mg/dL (0.6-1.3); POTASSIUM 4.2 mmol/L (3.5-5.1)
[2018-09-20 06:27] LABS: HEMATOCRIT 24 % (39-51); HEMOGLOBIN 8.3 g/dL (13.5-17.5); MEAN CORPUSCULAR HGB CONC 34 g/dl (31.0-36.0); MEAN CORPUSCULAR VOLUME 87 fL (80-96); PLATELET COUNT (AUTO) 94 /CMM (150-450); RED BLOOD CELL COUNT(AUTO) 2.81 MIL/uL (4.5-6.0); WHITE BLOOD COUNT (AUTO) 7.8 K/uL (4.3-11.0)
[2018-09-20] MEDS: TOBRAMYCIN 80 MG in IV D5W 50 ML IV SCH ×2 (06:31→17:54)
[2018-09-20] MEDS: GLUCERNA 1.2 1,000 ML BOTTLE NG PRN (06:34)
--- NOTE | 2018-09-20 07:00 | NUR ---
RN CLOSING NOTES PATIENT RESTING IN BED, APPEARS COMFORTABLE. WILL ENDORSE THE PATIENT TO THE AM SHIFT NURSE FOR CONTINUITY OF CARE
--- NOTE | 2018-09-20 07:12 | NUR ---
RN INITIAL NOTES: Rec'd pt asleep on bed, not in any distress. On MV via trach, AC mode, no SOB. ST on telemonitor. Has R IJ TLC w/ D5W 70 cc/hr infusing well. Has GT on cont GTF Glucerna 1.2 x 60 cc/hr infusing well. Has L CT, clamped since yesterday. Has FC draining to BSB. Provided comfort & safety measures. Bed kept low & in locked pos. Call light placed w/in reach. Will cont. to monitor & attend pt needs.
[2018-09-20 08:00] VITALS: BP 100/60
[2018-09-20] MEDS: MULTIVITAMINS,THERAGRAN 1 UDTAB TABLET GT SCH (08:34)
[2018-09-20] MEDS: PROSOURCE / PROSTAT (PYXIS) 30 ML UDC GT SCH (08:34)
[2018-09-20] MEDS: PANTOPRAZOLE 40 MG/PACK PACK GT SCH (08:34)
[2018-09-20] MEDS: LEVETIRACETAM SOL (5 ML) 100 MG/ML UDC PO SCH (08:34)
[2018-09-20] MEDS: ATORVASTATIN 10 MG TABLET PO SCH (08:34)
[2018-09-20] MEDS: ASCORBIC ACID 500 MG TABLET GT SCH (08:34)
[2018-09-20] MEDS: LACTOBACILLUS RHAMNOSUS GG 1 EACH CAP.SPRINK PO SCH ×2 (08:34→17:54)
[2018-09-20] MEDS: DAKINS QUARTER STRENGTH (0.125%) 480 ML BOTTLE TOP SCH (08:35)
[2018-09-20] MEDS: HYDROGEL DRESSING 90 GM TUBE TP SCH (08:35)
[2018-09-20] MEDS: Z GUARD REMEDY 2 OZ OINT TP SCH (08:35)
[2018-09-20 08:53] LABS: BAND % (MANUAL) 23 % (0.0-5.0); LYMPHOCYTES % (MANUAL) 10 % (16-48); MONOCYTES % (MANUAL) 9 % (0-11.0); NEUTROPHILS % (MANUAL) 58 (42-76)
--- NOTE | 2018-09-20 09:30 | NUR ---
Pt seen & examined by Dr. Grubbs. Per MD resume cont suctioning at 20mmHg for L CT.
[2018-09-20 12:00] VITALS: BP 121/83
[2018-09-20] MEDS: IV D5W 1,000 ML IV PRN (12:24)
[2018-09-20 16:00] VITALS: BP 103/67
--- NOTE | 2018-09-20 16:41 | NUR ---
RT NOTE: PATIENT RECEIVED TRACHED ON MECHANICAL VENT. ALARMS VERIFIED AND AUDIBLE. SUCTIONED AND LAVAGED COPIOUS AMOUNT OF THICK MONACO/LIGHT BROWN SECRETIONS. VENT PLUGGED INTO RED OUTLET. AMBU BAG AT [facility].
[2018-09-20] MEDS: FLUCONAZOLE (100 MG) 100 MG TABLET GT SCH (17:54)
--- NOTE | 2018-09-20 19:00 | NUR ---
RN CLOSING NOTES: No acute changes noted w/in shift. Pt tolerated MV settings via trach, AC mode, no SOB but still w/ moderate secretions. SR on telemonitor. R IJ TLC kept patent & intact w/ D5W 70 cc/hr infusing well. Tolerated cont GTF Glucerna 1.2 x 60 cc/hr infusing well. L CT, on cont low suctioning 20mmHg w/ 70cc output (level 520). FC kept draining to BSB w/ adequate UOP. Kept well rested. Needs attended. Bed kept low & in locked pos. Call light placed w/in reach. Endorsed to PM RN for LEYDA.
--- NOTE | 2018-09-20 19:28 | NUR ---
RECEIVED PT TRACHED SHLY 8 ON VENT. PT TOLERATING VENT SETTINGS. SX'D FOR LARGE AMT OF THICK CREAMY MONACO SECRETIONS. VENT ALARMS SET AND AUDIBLE. AMBU BAG AT BEDSIDE. VENT PLUGGED INTO RED OUTLET. WILL CONTINUE TO MONITOR. Addendum: 09/20/18 at 1928 by AMINATA YOON RT Amended: Links added.
[2018-09-20 20:00] VITALS: BP 107/70
[2018-09-21] VITALS: BP 114/52
[2018-09-21] MEDS: GLUCERNA 1.2 1,000 ML BOTTLE NG PRN (00:55)
[2018-09-21 04:00] VITALS: BP 112/65
[2018-09-21] MEDS: CEFEPIME 2 GM in IV D5W 100 ML IV SCH ×3 (04:37→20:12)
[2018-09-21] MEDS: IV D5W 1,000 ML IV PRN (04:37)
[2018-09-21] MEDS: BLOOD SUGAR DIAGNOSTIC 1 EACH STRIP IN SCH ×3 (06:11→17:47)
[2018-09-21] MEDS: TOBRAMYCIN 80 MG in IV D5W 50 ML IV SCH ×2 (06:12→22:09)
[2018-09-21] MEDS: INSULIN REGULAR, HUMAN 100 UNIT/ML 3 ML VIAL SQ PRN ×3 (06:15→17:50)
--- NOTE | 2018-09-21 07:46 | NUR ---
JOSEFINA RN NOTE PT REMAINED STABLE DURING SHIFT. NO ACUTE DISTRESS NOTED. VENT SETTINGS WELL TOLERATED. SUCTIONED NEEDED. REPOSITIONED Q2H. CHEST TUBE IN PLACE AND CONNECTED TO CONTINUOUS SUCTION. ALL NEEDS ATTENDED TO PROMPTLY. WILL ENDORSE TO NEXT SHIFT FOR CONTINUITY OF CARE.
[2018-09-21 08:00] VITALS: BP 107/65
--- NOTE | 2018-09-21 08:00 | NUR ---
JOSEFINA/RN: Pt received, on trach/vent tolerating current settings. Suctioned with copious amount of thick staley secretions. IVF infusing well. CT noted to suction; dressings C/D/I. GTF tolerated well. Turned and repositioned for comfort. Alarm sounds audible. Will cont to monitor pt.
[2018-09-21 08:02] LABS: CALCIUM, SERUM 7.2 mg/dL (8.5-10.1); CREATININE 0.8 mg/dL (0.6-1.3); POTASSIUM 4.5 mmol/L (3.5-5.1)
[2018-09-21] MEDS: LEVETIRACETAM SOL (5 ML) 100 MG/ML UDC PO SCH (08:17)
[2018-09-21] MEDS: ASCORBIC ACID 500 MG TABLET GT SCH (08:17)
[2018-09-21] MEDS: PANTOPRAZOLE 40 MG/PACK PACK GT SCH (08:17)
[2018-09-21] MEDS: MULTIVITAMINS,THERAGRAN 1 UDTAB TABLET GT SCH (08:17)
[2018-09-21] MEDS: ATORVASTATIN 10 MG TABLET PO SCH (08:17)
[2018-09-21] MEDS: LACTOBACILLUS RHAMNOSUS GG 1 EACH CAP.SPRINK PO SCH ×2 (08:17→17:10)
[2018-09-21] MEDS: Z GUARD REMEDY 2 OZ OINT TP SCH (08:18)
[2018-09-21] MEDS: HYDROGEL DRESSING 90 GM TUBE TP SCH (08:18)
[2018-09-21] MEDS: PROSOURCE / PROSTAT (PYXIS) 30 ML UDC GT SCH (08:18)
[2018-09-21] MEDS: DAKINS QUARTER STRENGTH (0.125%) 480 ML BOTTLE TOP SCH (08:19)
[2018-09-21 09:16] LABS: BASOPHILS % (AUTO) 0.2 % (0.0-2.0); EOSINOPHILS % (AUTO) 0.4 % (0.0-6.0); HEMATOCRIT 25 % (39-51); HEMOGLOBIN 8.4 g/dL (13.5-17.5); LYMPHOCYTES # (AUTO) 0.4 /CMM (0.8-4.8); LYMPHOCYTES % (AUTO) 5.1 % (20.0-44.0); MEAN CORPUSCULAR HGB CONC 33 g/dl (31.0-36.0); MEAN CORPUSCULAR VOLUME 87 fL (80-96); MONOCYTES # (AUTO) 0.3 /CMM (0.1-1.30); MONOCYTES % (AUTO) 3.9 % (2.0-12.0); NEUTROPHILS # (AUTO) 7.6 /CMM (1.8-8.9); NEUTROPHILS % (AUTO) 90.4 % (43.0-81.0); PLATELET COUNT (AUTO) 128 /CMM (150-450); RED BLOOD CELL COUNT(AUTO) 2.91 MIL/uL (4.5-6.0); WHITE BLOOD COUNT (AUTO) 8.4 K/uL (4.3-11.0)
[2018-09-21 10:14] LABS: BAND % (MANUAL) 6 % (0.0-5.0); LYMPHOCYTES % (MANUAL) 4 % (16-48); MONOCYTES % (MANUAL) 8 % (0-11.0); NEUTROPHILS % (MANUAL) 82 (42-76)
--- NOTE | 2018-09-21 11:12 | NUR ---
RT NOTE RECEIVED PT MECHANICALLY VENTILATED VIA SHILEY 8 CUFFED TRACHEOSTOMY TUBE. CUFF INFLATED. TRACH TUBE MIDLINE AND SECURE. VENTILATOR SETTINGS PRESCRIBED. ALARMS SET PER PROTOCOL AND AUDIBLE. VENT PLUGGED IN TO RED OUTLET. AMBU BAG AT BED SIDE. NO DISTRESS NOTED AT MOMENT. Addendum: 09/21/18 at 1113 by SHERRI OJEDA RT Amended: Links added.
[2018-09-21 12:00] VITALS: BP 92/62
--- NOTE | 2018-09-21 15:30 | NUR ---
ICU/RN: Bed bath, wound care rendered. Pt with generalized weeping edema. CT dressing changed. Tolerated well. Will cont to monitor pt.
[2018-09-21 16:00] VITALS: BP 104/63
--- NOTE | 2018-09-21 18:00 | NUR ---
ICU/RN: Isra Morales NP rounds; updated on pt status, labs. Per MD, d/c free water flushes. Aware of plan for sacral debridement tomorrow.
--- NOTE | 2018-09-21 19:20 | NUR ---
TELE/RN: Tobramycin trough pending; per chemistry lab instructor, sample is "send-out." Administration endorsed to pm rn for jennyfer
[2018-09-21 20:00] VITALS: BP 111/67
--- NOTE | 2018-09-21 22:10 | NUR ---
HEAVY EQUIPMENT PLUMBING SUPERVISOR NOTE RECEIVED TOBRAMYCIN TROUGH 1.7. AND ENDORSED TO GIVE IV TOBRAMYCIN. CARRIED OUT.
[2018-09-22] VITALS (7 sets, daily range): BP systolic 91–113; BP diastolic 55–74
[2018-09-22] MEDS: BLOOD SUGAR DIAGNOSTIC 1 EACH STRIP IN SCH ×5 (00:21→23:32)
[2018-09-22] MEDS: INSULIN REGULAR, HUMAN 100 UNIT/ML 3 ML VIAL SQ PRN ×4 (00:22→23:38)
[2018-09-22] MEDS: CEFEPIME 2 GM in IV D5W 100 ML IV SCH ×3 (05:05→21:42)
[2018-09-22] MEDS: TOBRAMYCIN 80 MG in IV D5W 50 ML IV SCH ×2 (05:53→17:17)
[2018-09-22 07:40] LABS: CALCIUM, SERUM 7.4 mg/dL (8.5-10.1); CREATININE 0.6 mg/dL (0.6-1.3); POTASSIUM 4.1 mmol/L (3.5-5.1)
--- NOTE | 2018-09-22 07:53 | NUR ---
INITIAL BACK PAD INSPECTOR NOTE RCVD PT ABLE TO OPEN EYES, UNABLE TO FOLLOW COMMANDS, ST ON MONITOR. TOLERATING ORDERED VENT SETTINGS WELL. CHEST TUBE TO WALL SUCTION, DRAINING SEROUS FLUID. SEXTON TO GRAVITY DRAINING CLEAR, YELLOW URINE. G-TUBE CLAMPED AT THIS TIME, PLACEMENT VERIFIED BY AUSCULTATION/ASPIRATION, CLEAR GASTRIC CONTENT OBTAINED UPON ASPIRATING. IV SITE C/D/I/PATENT. NO S/O INFILTRATION/PHLEBITIS OBSERVED IVF INFUSING ORDERED. WILL CONTINUE TO MONITOR PT FOR SAFETY AND COMFORT. BED IN LOW AND LOCKED POSITION.
[2018-09-22] MEDS: PROSOURCE / PROSTAT (PYXIS) 30 ML UDC GT SCH (08:55)
[2018-09-22] MEDS: MULTIVITAMINS,THERAGRAN 1 UDTAB TABLET GT SCH (08:55)
[2018-09-22] MEDS: ATORVASTATIN 10 MG TABLET PO SCH (08:55)
[2018-09-22] MEDS: PANTOPRAZOLE 40 MG/PACK PACK GT SCH (08:55)
[2018-09-22] MEDS: LACTOBACILLUS RHAMNOSUS GG 1 EACH CAP.SPRINK PO SCH ×2 (08:55→17:15)
[2018-09-22] MEDS: DAKINS QUARTER STRENGTH (0.125%) 480 ML BOTTLE TOP SCH (08:55)
[2018-09-22] MEDS: ASCORBIC ACID 500 MG TABLET GT SCH (08:55)
[2018-09-22] MEDS: LEVETIRACETAM SOL (5 ML) 100 MG/ML UDC PO SCH (08:55)
[2018-09-22] MEDS: HYDROGEL DRESSING 90 GM TUBE TP SCH (10:43)
[2018-09-22] MEDS: Z GUARD REMEDY 2 OZ OINT TP SCH (10:43)
[2018-09-22] MEDS: IV D5W 1,000 ML IV PRN (11:34)
--- NOTE | 2018-09-22 16:08 | NUR ---
DIRECTOR FAMILY NOTE PT TAKEN TO OR FOR SACRAL DEBRIDEMENT VIA BED PER PROTOCOL.
--- NOTE | 2018-09-22 20:00 | NUR ---
RN INITIAL NOTE RECEIVED IN BED, PT ABLE TO OPEN EYES, UNABLE TO FOLLOW COMMANDS, ST ON TELE MONITOR HR 87. TOLERATING ORDERED VENT SETTINGS WELL. CHEST TUBE TO WALL SUCTION, DRAINING SEROUS FLUID. SEXTON TO GRAVITY DRAINING CLEAR, YELLOW URINE. G-TUBE CLAMPED AT THIS TIME, PLACEMENT VERIFIED BY AUSCULTATION/ASPIRATION, CLEAR GASTRIC CONTENT OBTAINED UPON ASPIRATING. IV SITE C/D/I/PATENT. NO S/OF INFILTRATION/PHLEBITIS OBSERVED IVF INFUSING ORDERED. BED IN LOW AND LOCKED POSITION. WILL CONT TO MONITOR FOR SAFETY.
--- NOTE | 2018-09-22 20:09 | NUR ---
SOAKER SODA WORKER NOTE PT STABLE NO S/O DISTRESS/PAIN AT THIS TIME. REMAINS SR ON TELE. PT UNDERWENT SACRAL DEBRIDEMENT WITH DR. MILAN THIS AFTERNOON. TOLERATING ORDERED VENT SETTINGS. CHEST TUBE TO WALL SUCTION. SEXTON TO GRAVITY. PT WAS RECOVERED IN ROOM BY ESTRELLA AMAYA. PT'S CARE ENDORSED TO CREDIT REPRESENTATIVE RN FOR CONTINUITY OF CARE. BED IN LOW AND LOCKED POSITION.
--- NOTE | 2018-09-22 20:47 | NUR ---
PT REC'D TRACHED ON [facility] VENT ON AC MODE. PT AWARE AND NON COMMUNICATIVE. NO RESP DISTRESS OR SOB NOTED. SX'D FOR THIN LARGE AMT OF DARK MONACO SECRETIONS. TRACH PATENT AND SECURED. ALARMS ARE SET AND AUDIBLE. VENT PLUGGED INTO RED OUTLET. AMBU BAG BEDSIDE. WILL CONTINUE TO MONITOR. Addendum: 09/23/18 at 0511 by RIKA DOHERTY RT Amended: Links added.
[2018-09-23] VITALS: BP_SYST 133; BP_SYST 96; BP_DIAS 54; BP_DIAS 59
[2018-09-23 04:00] VITALS: BP 93/54
[2018-09-23] MEDS: CEFEPIME 2 GM in IV D5W 100 ML IV SCH ×3 (04:18→21:28)
[2018-09-23] MEDS: BLOOD SUGAR DIAGNOSTIC 1 EACH STRIP IN SCH ×3 (05:00→17:22)
[2018-09-23] MEDS: TOBRAMYCIN 80 MG in IV D5W 50 ML IV SCH ×2 (05:00→17:08)
[2018-09-23] MEDS: GLUCERNA 1.2 1,000 ML BOTTLE NG PRN (05:08)
[2018-09-23] MEDS: INSULIN REGULAR, HUMAN 100 UNIT/ML 3 ML VIAL SQ PRN ×3 (05:08→17:23)
--- NOTE | 2018-09-23 06:47 | NUR ---
RN CLOSING NOTE PT REMAINED STABLE DURING SHIFT. NO ACUTE DISTRESS NOTED. VENT SETTINGS WELL TOLERATED. SUCTIONED NEEDED. REPOSITIONED Q2H. CHEST TUBE IN PLACE AND CONNECTED TO CONTINUOUS SUCTION. ALL NEEDS ATTENDED TO PROMPTLY. WILL ENDORSE TO NEXT SHIFT FOR CONTINUITY OF CARE.
--- NOTE | 2018-09-23 07:30 | NUR ---
RN NOTES RECEIVED PATIENT ON [facility] VENT WITH BREATHING NORMAL, EVEN AND UNLABORED. NO SOB NOTED. NO ACUTE DISTRESS NOTED. VENT SETTING REVIEWED AND VERIFIED, TOLERATED WELL. TELE MONITOR REVEALS SR, HR=90. RIJ TRIPLE LUMEN CATH IS PATENT AND INTACT. ON GT FEED GLUCERNA @15CC/HR, TOLERATED WELL. NO RESIDUAL NOTED. ASPIRATION PRECAUTION TAKEN. HOB ELEVATED. F/C IS PATENT AND INTACT, DRAINING WITH GRAVITY. KEPT CLEAN, DRY AND COMFORTABLE. ALL NEEDS ATTENDED. SAFETY MEASURE OBSERVED. CALL LIGHT WITH IN REACH. WILL CONT TO MONITOR.
[2018-09-23 07:43] LABS: CALCIUM, SERUM 7.4 mg/dL (8.5-10.1); CREATININE 0.8 mg/dL (0.6-1.3); POTASSIUM 3.9 mmol/L (3.5-5.1)
[2018-09-23 08:00] VITALS: BP 105/48
[2018-09-23] MEDS: ATORVASTATIN 10 MG TABLET PO SCH (09:31)
[2018-09-23] MEDS: MULTIVITAMINS,THERAGRAN 1 UDTAB TABLET GT SCH (09:31)
[2018-09-23] MEDS: LACTOBACILLUS RHAMNOSUS GG 1 EACH CAP.SPRINK PO SCH ×2 (09:31→17:08)
[2018-09-23] MEDS: PANTOPRAZOLE 40 MG/PACK PACK GT SCH (09:31)
[2018-09-23] MEDS: ASCORBIC ACID 500 MG TABLET GT SCH (09:31)
[2018-09-23] MEDS: PROSOURCE / PROSTAT (PYXIS) 30 ML UDC GT SCH (09:31)
[2018-09-23] MEDS: LEVETIRACETAM SOL (5 ML) 100 MG/ML UDC PO SCH (09:31)
[2018-09-23] MEDS: DAKINS QUARTER STRENGTH (0.125%) 480 ML BOTTLE TOP SCH (09:35)
[2018-09-23] MEDS: Z GUARD REMEDY 2 OZ OINT TP SCH (09:36)
[2018-09-23] MEDS: HYDROGEL DRESSING 90 GM TUBE TP SCH (09:36)
[2018-09-23 12:00] VITALS: BP 102/49
[2018-09-23 16:00] VITALS: BP 106/63
--- NOTE | 2018-09-23 19:18 | NUR ---
RN NOTES PATIENT ENDORSED TO NEXT SHIFT IN STABLE CONDITION FOR CONTINUITY OF CARE.
[2018-09-23 20:00] VITALS: BP 116/69
--- NOTE | 2018-09-23 20:32 | NUR ---
RECEIVED PT TRACHED ON VENT. MARJLY 8. NO RESP DISTRESS. PT TOLERATING VENT SETTINGS. SX'D FOR LARGE AMT OF THICK MONACO SECRETIONS. VENT ALARMS SET AND AUDIBLE. AMBU BAG AT BEDSIDE. VENT PLUGGED INTO RED OUTLET. WILL CONTINUE TO MONITOR. Addendum: 09/23/18 at 2036 by LENI INTERIANO RT Amended: Links added.
[2018-09-24] VITALS: BP 104/61
[2018-09-24] MEDS: BLOOD SUGAR DIAGNOSTIC 1 EACH STRIP IN SCH ×4 (00:44→17:25)
[2018-09-24] MEDS: INSULIN REGULAR, HUMAN 100 UNIT/ML 3 ML VIAL SQ PRN ×4 (00:47→17:22)
[2018-09-24 04:00] VITALS: BP 119/71
[2018-09-24] MEDS: CEFEPIME 2 GM in IV D5W 100 ML IV SCH ×3 (04:04→22:17)
[2018-09-24] MEDS: TOBRAMYCIN 80 MG in IV D5W 50 ML IV SCH ×2 (05:20→17:16)
--- NOTE | 2018-09-24 07:22 | NUR ---
UI ENGINEER NOTE PATIENT IN BED , SLEEPING COMFORTABLY AT THIS TIME, NONVERBAL, WITH TRACH TO VENT SETTING ORDERED , ON TELE MONITOR ST 98 , WITH SEXTON CATH TO GRAVITY WITH YELLOW URINE , ON G TUBE FEEDING ORDERED KEEP HOB ELEVATED AT ALL TIME , LT SIDE CHEST TUBE IN PLACE TO LOW CONT WALL SUCTION , BED IN LOWEST AND LOCKED POSITION , CALL LIGHT WITHIN REACH, BILATERAL UPPER ARMS WITH EDEMA, KEEP ELEVATED ON PILLOW TOLERATED, WILL CONT TO MONITOR CLOSELY
[2018-09-24 08:00] VITALS: BP 108/63
[2018-09-24] MEDS: MULTIVITAMINS,THERAGRAN 1 UDTAB TABLET GT SCH (08:28)
[2018-09-24] MEDS: LEVETIRACETAM SOL (5 ML) 100 MG/ML UDC PO SCH (08:28)
[2018-09-24] MEDS: ASCORBIC ACID 500 MG TABLET GT SCH (08:28)
[2018-09-24] MEDS: LACTOBACILLUS RHAMNOSUS GG 1 EACH CAP.SPRINK PO SCH ×2 (08:28→17:16)
[2018-09-24] MEDS: PANTOPRAZOLE 40 MG/PACK PACK GT SCH (08:28)
[2018-09-24] MEDS: ATORVASTATIN 10 MG TABLET PO SCH (08:28)
[2018-09-24] MEDS: HYDROGEL DRESSING 90 GM TUBE TP SCH (08:36)
[2018-09-24] MEDS: Z GUARD REMEDY 2 OZ OINT TP PRN (08:36)
[2018-09-24] MEDS: DAKINS QUARTER STRENGTH (0.125%) 480 ML BOTTLE TOP SCH (08:36)
[2018-09-24] MEDS: Z GUARD REMEDY 2 OZ OINT TP SCH (08:37)
[2018-09-24 08:48] LABS: CALCIUM, SERUM 7.6 mg/dL (8.5-10.1); CREATININE 0.9 mg/dL (0.6-1.3); POTASSIUM 4.3 mmol/L (3.5-5.1)
[2018-09-24] MEDS: PROSOURCE / PROSTAT (PYXIS) 30 ML UDC GT SCH (09:37)
[2018-09-24] MEDS: IV NS 0.9% 1,000 ML IV PRN (09:48)
[2018-09-24] MEDS: GLUCERNA 1.2 1,000 ML BOTTLE NG PRN (09:56)
--- NOTE | 2018-09-24 10:00 | NUR ---
telephoner note dr tang made round notifyed that chest tube noted10 ml , stated that tomorrow peg placement lt side pnx
--- NOTE | 2018-09-24 10:03 | NUR ---
PETAL CUTTER NOTE NA 129 NASRIN RN FOUNDATION STAGE TEACHER AWARE WITH ORDER NS AT 75 ML PER HOUR ,WILL F\U
--- NOTE | 2018-09-24 11:00 | NUR ---
SENIOR OFFICE SUPPORT ASSISTANT SOSA NOTE CALLED TO RADIOLOGIST OBTAINED ORDER TO DO US WITH PEG PLACEMENT ,OK TO BE NPO AND PT\PTT, INR IN AM , NASRIN RN METAL ROLLING MILL OPERATOR AWARE OF IT
[2018-09-24 12:00] VITALS: BP 97/57
--- NOTE | 2018-09-24 12:00 | NUR ---
HEAD OF MUSIC NOTE CALLED DAUGHTER JAXON TELE PHONE CONSENT OBTAINED TO DO PIG PLACEMENT LT SIDE BASILAR PNX
--- NOTE | 2018-09-24 12:57 | NUR ---
JAVASCRIPT APPLICATION DEVELOPER NOTE TURN REPOSITION , ALL NEEDS ATTENDED ,TRACH AND ORAL SUCTION DONE ,WILL CONT TO MONITOR CLOSELY
--- NOTE | 2018-09-24 15:00 | NUR ---
CONTACT PERSON NOTE TURN REPOSITION TRACH AND ORAL SUCTION DONE ,WILL CONT TO MONITOR CLOSELY
[2018-09-24 16:00] VITALS: BP 110/55
--- NOTE | 2018-09-24 16:56 | NUR ---
RT SHIFT REPORT: PT. 58 Y OLD MALE REMAIN TRACH'D SAMMIE # 8 WITH NOTED SETTINGS, ALARMS ARE SET AND FUNCTIONAL, NO RESP. DISTRESS NOTED T/O SHIFT EQUAL CHEST RISE NOTED. B/S BILATERALLY RHONCHI SUX'D FOR MOD. AMT OF BROWNISH SECRETIONS, PT. REMAIN STABLE. HME CHANGED, AMBU BAG REMAIN AT THE BEDSIDE, VENT PLUGGED INTO RED OUTLET. Addendum: 09/24/18 at 1657 by HERIBERTO LEE RT Amended: Links added.
--- NOTE | 2018-09-24 18:00 | NUR ---
CORE FITTER NOTE PER PHARMACY OK TO O GIVE TOBRAMYCIN IV. SPOKE WITH DELMIS
--- NOTE | 2018-09-24 18:34 | NUR ---
LICENSED AIRCRAFT MAINTENANCE ENGINEER NOTE TRACH SUCTION DONE 50 ML NOTE IN CHEST TUBE GRAINAGE , WILL CONT TO MONITOR CLOSELY
[2018-09-24 20:00] VITALS: BP_SYST 142; BP_SYST 98; BP_DIAS 52; BP_DIAS 72
--- NOTE | 2018-09-24 21:15 | NUR ---
RN NOTE RECEIVED CALL FROM LAB, TOBRAMYCIN 2.4, CALLED PHARMACY, WILL HOLD 6AM DOSE OF TOBRAMYCIN, CHARGE NURSE IS AWARE
--- NOTE | 2018-09-24 21:42 | NUR ---
RECEIVED PT TRACHED ON VENT. MARJLY 8. NO RESP DISTRESS. PT TOLERATING VENT SETTINGS. SX'D FOR LARGE AMT OF THICK CREAMY YELLOW SECRETIONS. VENT ALARMS SET AND AUDIBLE. AMBU BAG AT BEDSIDE. VENT PLUGGED INTO RED OUTLET. WILL CONTINUE TO MONITOR. Addendum: 09/24/18 at 2142 by LENI INTERIANO RT Amended: Links added.
[2018-09-25] VITALS: BP_SYST 98; BP_SYST 99; BP_DIAS 52
[2018-09-25] MEDS: BLOOD SUGAR DIAGNOSTIC 1 EACH STRIP IN SCH ×4 (00:55→17:21)
[2018-09-25 04:00] VITALS: BP 92/53
[2018-09-25] MEDS: IV NS 0.9% 1,000 ML IV PRN (04:10)
[2018-09-25] MEDS: CEFEPIME 2 GM in IV D5W 100 ML IV SCH ×3 (04:11→21:15)
--- NOTE | 2018-09-25 05:40 | NUR ---
RN NOTE NOTIFIED LATONIA VASQUES NOVELTY TWISTER OPERATOR THAT PATIENT'S BLOOD SUGAR IS 323, AND PATIENT IS NPO DUE TO PROCEDURE SCHEDULED IN THE AM, PER LATONIA VASQUES ADMINISTER INSULIN PER SLIDING SCALE AND RECHECK IN HALF AN HOUR
[2018-09-25] MEDS: INSULIN REGULAR, HUMAN 100 UNIT/ML 3 ML VIAL SQ PRN (05:44)
[2018-09-25] MEDS: TOBRAMYCIN 80 MG in IV D5W 50 ML IV SCH ×2 (06:00→19:24)
--- NOTE | 2018-09-25 06:10 | NUR ---
RN NOTE RECHECKED BLOOD SUGAR 318, NOTIFIED LAYO LINCOLN, NO NEW ORDERS GIVEN
[2018-09-25 07:04] LABS: CALCIUM, SERUM 7.5 mg/dL (8.5-10.1); CREATININE 0.9 mg/dL (0.6-1.3)
[2018-09-25 08:00] VITALS: BP 99/56
[2018-09-25] MEDS: PROSOURCE / PROSTAT (PYXIS) 30 ML UDC GT SCH (08:47)
[2018-09-25] MEDS: ASCORBIC ACID 500 MG TABLET GT SCH (08:47)
[2018-09-25] MEDS: LACTOBACILLUS RHAMNOSUS GG 1 EACH CAP.SPRINK PO SCH ×2 (08:47→17:00)
[2018-09-25] MEDS: MULTIVITAMINS,THERAGRAN 1 UDTAB TABLET GT SCH (08:47)
[2018-09-25] MEDS: PANTOPRAZOLE 40 MG/PACK PACK GT SCH (08:47)
[2018-09-25] MEDS: ATORVASTATIN 10 MG TABLET PO SCH (08:48)
[2018-09-25] MEDS: DAKINS QUARTER STRENGTH (0.125%) 480 ML BOTTLE TOP SCH (08:48)
[2018-09-25] MEDS: HYDROGEL DRESSING 90 GM TUBE TP SCH (08:48)
[2018-09-25] MEDS: Z GUARD REMEDY 2 OZ OINT TP SCH (08:49)
[2018-09-25] MEDS: LEVETIRACETAM SOL (5 ML) 100 MG/ML UDC PO SCH (09:00)
--- NOTE | 2018-09-25 09:00 | NUR ---
RN INITIAL NOTES 0715 RECEIVED PT OBTUNDED, ON VENT. TRACH IN PLACE. HOB ELEVATED. NO SOB NOTED. HOB ELEVATED. RIJ IN PLACE. IVF INFUSING. GT CLAMPED. LEFT CHEST TUBE IN PLACE. FC IN PLACE. NO HEMATURIA NOTED. PT FOR LEFT PIGTAIL INSERTION. CONSENT OBTAINED. BLE ELEVATED. PT COMFORTABLE. WILL MONITOR. 0900 SEEN AND EXAMINED BY DR MARTE. AWARE OF LAB VALUES AND CXR RESULT. LEFT CHEST TUBE IN PLACE. 20ML RESIDUAL FROM LAST NIGHT. NO SOB NOTED. KEPT HOB ELEVATED. TOLERATING VENT WELL. PT FOR LEFT PIGTAIL INSERTION. WILL CONTINUE TO MONITOR.
[2018-09-25 12:00] VITALS: BP 100/55
--- NOTE | 2018-09-25 13:30 | NUR ---
RN NOTES SEEN AND EXAMINED BY NASRIN ZAMORA NP. AWARE OF LAB VALUES AND IMAGING RESULT. PT FOR LEFT PIGTAIL TUBE INSERTION. KEPT NPO. NO RESPIRATORY DISTRESS NOTED. NO SIGNS OF PAIN NOTED. WILL MONITOR.
[2018-09-25 16:00] VITALS: BP 121/62
--- NOTE | 2018-09-25 18:47 | NUR ---
RT END OF THE SHIFT REPORT: PT. 58 Y OLD MALE REMAIN TRACH'D SAMMIE # 8 WITH NOTED SETTINGS, ALARMS ARE SET AND FUNCTIONAL, NO RESP. DISTRESS NOTED T/O SHIFT EQUAL CHEST RISE NOTED. B/S BILATERALLY RHONCHI SUX'D FOR LARGE AMT OF BROWNISH SECRETIONS, PT. REMAIN STABLE. HME CHANGED X2, AMBU BAG REMAIN AT THE BEDSIDE, VENT PLUGGED INTO RED OUTLET. Addendum: 09/25/18 at 1848 by HERIBERTO LEE RT Amended: Links added.
--- NOTE | 2018-09-25 18:53 | NUR ---
RN CLOSING NOTES PT REMAINS ON VENT. NO RESPIRATORY DISTRESS NOTED. SUCTIONED NEEDED. KEPT HOB ELEVATED. NO SIGNS OF PAIN NOTED. RIJ TLC IN PLACE. GT CLAMPED. KEPT ON NPO. LEFT CHEST TUBE IN PLACE. FC IN PLACE. PT FOR LEFT PIGTAIL INSERTION IN AM. TX PROVIDED ORDERED. KEPT CLEAN AND DRY. REPOSITIONED Q2. WILL ENDORSE FOR CONTINUITY OF CARE.
[2018-09-25 20:00] VITALS: BP 100/48
[2018-09-26] VITALS (11 sets, daily range): BP systolic 90–126; BP diastolic 50–67
--- NOTE | 2018-09-26 00:16 | NUR ---
pt received on vent via trach with charted settings. airway patent. trach secure via trach tie. pt awake. ambu bag at bedside. alarms set and audible, disconnect alarms checked plugged into red outlet suctioned a moderate amount of thick yellow secretions. pt receiving no breathing tx at this time. pt hob at 30 degrees. suctioned oral secretion from pts mouth Addendum: 09/26/18 at 0016 by SHAKIRA ANIR RT Amended: Links added.
[2018-09-26] MEDS: CEFEPIME 2 GM in IV D5W 100 ML IV SCH ×3 (05:32→21:11)
[2018-09-26] MEDS: BLOOD SUGAR DIAGNOSTIC 1 EACH STRIP IN SCH ×4 (05:32→16:37)
[2018-09-26 07:08] LABS: CALCIUM, SERUM 7.6 mg/dL (8.5-10.1); CREATININE 0.7 mg/dL (0.6-1.3); POTASSIUM 3.9 mmol/L (3.5-5.1)
[2018-09-26 07:51] LABS: BASOPHILS % (AUTO) 0.3 % (0.0-2.0); EOSINOPHILS % (AUTO) 0.2 % (0.0-6.0); LYMPHOCYTES # (AUTO) 0.6 /CMM (0.8-4.8); LYMPHOCYTES % (AUTO) 4.6 % (20.0-44.0); MEAN CORPUSCULAR HGB CONC 32 g/dl (31.0-36.0); MEAN CORPUSCULAR VOLUME 89 fL (80-96); MONOCYTES # (AUTO) 0.5 /CMM (0.1-1.30); MONOCYTES % (AUTO) 4.4 % (2.0-12.0); NEUTROPHILS # (AUTO) 10.9 /CMM (1.8-8.9); NEUTROPHILS % (AUTO) 90.5 % (43.0-81.0); PLATELET COUNT (AUTO) 280 /CMM (150-450); RED BLOOD CELL COUNT(AUTO) 2.23 MIL/uL (4.5-6.0); WHITE BLOOD COUNT (AUTO) 12.1 K/uL (4.3-11.0)
[2018-09-26 07:56] LABS: HEMATOCRIT 20 % (39-51)
[2018-09-26 08:02] LABS: HEMOGLOBIN 6.4 g/dL (13.5-17.5)
[2018-09-26 09:11] LABS: LYMPHOCYTES % (MANUAL) 3 % (16-48); MONOCYTES % (MANUAL) 3 % (0-11.0); NEUTROPHILS % (MANUAL) 94 (42-76)
[2018-09-26] MEDS ORDERED: FENTANYL PF 250MCG/5ML AMPUL IV ONE (09:30)
[2018-09-26] MEDS ORDERED: MIDAZOLAM HCL 5MG/ML VIAL 25 MG/5 ML VIAL IV ONE (09:30)
[2018-09-26] MEDS ORDERED: NALOXONE PREFILLED SYRINGE 2 MG/2 ML SYRINGE IV ONE (09:30)
[2018-09-26] MEDS ORDERED: LIDOCAINE HCL/PF 1% 30 ML SDV ONE (10:06)
[2018-09-26] MEDS: LACTOBACILLUS RHAMNOSUS GG 1 EACH CAP.SPRINK PO SCH ×2 (10:27→16:31)
[2018-09-26] MEDS: LEVETIRACETAM SOL (5 ML) 100 MG/ML UDC PO SCH (10:27)
[2018-09-26] MEDS: MULTIVITAMINS,THERAGRAN 1 UDTAB TABLET GT SCH (10:27)
[2018-09-26] MEDS: ASCORBIC ACID 500 MG TABLET GT SCH (10:27)
[2018-09-26] MEDS: ATORVASTATIN 10 MG TABLET PO SCH (10:28)
[2018-09-26] MEDS: PANTOPRAZOLE 40 MG/PACK PACK GT SCH (10:28)
[2018-09-26] MEDS: Z GUARD REMEDY 2 OZ OINT TP PRN (10:32)
[2018-09-26] MEDS: DAKINS QUARTER STRENGTH (0.125%) 480 ML BOTTLE TOP SCH (10:32)
[2018-09-26] MEDS: HYDROGEL DRESSING 90 GM TUBE TP SCH (10:32)
[2018-09-26] MEDS: Z GUARD REMEDY 2 OZ OINT TP SCH (10:32)
[2018-09-26] MEDS: PROSOURCE / PROSTAT (PYXIS) 30 ML UDC GT SCH (10:33)
[2018-09-26] MEDS: INSULIN REGULAR, HUMAN 100 UNIT/ML 3 ML VIAL SQ PRN ×2 (12:39→16:38)
[2018-09-26 13:05] LABS: IRON, SERUM 10 ug/dl (50-175); TOTAL IRON BINDING CAPACITY 80 ug/dl (250-450)
[2018-09-26] MEDS: TOBRAMYCIN 80 MG in IV D5W 50 ML IV SCH (16:37)
--- NOTE | 2018-09-26 19:35 | NUR ---
RN NOTES RECEIVED PT AWAKE ABLE TO TRACT EYES. NO ACUTE RESPIRATORY DISTRESS. WITH TRACH CONNECTED TO VENT SETTING TOLERATED WELL. SR ON TELE MONITOR. WITH LEFT CHEST TUBE AND S/P LEFT PIGTAIL INSERTION. DRESSING INTACT. NO AIR LEAKING. DRAINED WITH YELLOWISH COLOR OUTPUT FROM PIGTAIL CONNECTED TO DRAINAGE BAG TOLERATED WELL WITHOUT SOB OR DISTRESS PRESENT. IV SITE ON RIJ WITH GOOD BLOOD RETURN AND FLUSHED WELL. KEPT PT CLEAN AND COMFORTABLE IN BED. OFFLOADED EXT WITH PILLOWS. REDUCED PRESSURE TO BONY PROMINENCE AREA. NURSING CARE PROVIDED. WILL CONTINUE TO MONITOR.
--- NOTE | 2018-09-26 23:16 | NUR ---
PT RCALFREDO'D ON MECHANICAL VENT WITH CHARTED SETTINGS. SX DONE. PT TRACH PATENT AND SECURE. AMBU BAG AT BEDSIDE. VENT PLUGGED INTO RED OUTLET. ALARMS ARE SET AND AUDIBLE. WILL CONTINUE TO MONITOR. Addendum: 09/26/18 at 2316 by AL BARAHONA RT Amended: Links added.
[2018-09-27] VITALS (7 sets, daily range): BP systolic 93–122; BP diastolic 54–67
[2018-09-27] MEDS: BLOOD SUGAR DIAGNOSTIC 1 EACH STRIP IN SCH ×4 (00:23→17:42)
--- NOTE | 2018-09-27 00:24 | NUR ---
RN NOTES HOLD 2 UNITS OF REGULAR INSULIN DUE TO PATIENT IS NPO
[2018-09-27] MEDS: CEFEPIME 2 GM in IV D5W 100 ML IV SCH ×3 (04:15→22:06)
[2018-09-27 06:32] LABS: BASOPHILS % (AUTO) 0.2 % (0.0-2.0); EOSINOPHILS % (AUTO) 0.4 % (0.0-6.0); HEMATOCRIT 26 % (39-51); HEMOGLOBIN 8.5 g/dL (13.5-17.5); LYMPHOCYTES # (AUTO) 0.4 /CMM (0.8-4.8); LYMPHOCYTES % (AUTO) 3.9 % (20.0-44.0); MEAN CORPUSCULAR HGB CONC 33 g/dl (31.0-36.0); MEAN CORPUSCULAR VOLUME 87 fL (80-96); MONOCYTES # (AUTO) 0.6 /CMM (0.1-1.30); MONOCYTES % (AUTO) 5.4 % (2.0-12.0); NEUTROPHILS # (AUTO) 10.2 /CMM (1.8-8.9); NEUTROPHILS % (AUTO) 90.1 % (43.0-81.0); PLATELET COUNT (AUTO) 325 /CMM (150-450); RED BLOOD CELL COUNT(AUTO) 2.92 MIL/uL (4.5-6.0); WHITE BLOOD COUNT (AUTO) 11.4 K/uL (4.3-11.0)
[2018-09-27 06:40] LABS: CREATININE 0.8 mg/dL (0.6-1.3); POTASSIUM 3.3 mmol/L (3.5-5.1)
--- NOTE | 2018-09-27 07:04 | NUR ---
RN NOTES NO CHANGE FROM VENT SETTING. TRACH AND VENT SETTING TOLERATED WELL. REMAINED SR ON TELE MONITOR. CT AND PIGTAIL REMAINED INTACT. NO AIR LEAKING. AFEBRILE. VSS NO SIGNIFICANT CHANGES THROUGHOUT THE SHIFT. GT STILL CLAMPED WILL FOLLOW UP FOR FEEDING TODAY. RIJ INTACT AND PATENT WITH TKO. KEPT ALL WOUND DRESSING CHANGED. KEPT PT CLEAN AND DRY WILL ENDORSED CONTINUITY OF CARE TO AM NURSE AND TO GIVE I UNIT PRBC MD ORDER. OR FOLLOW UP MD REGARDING ANOTHER BLOOD TRANSFUSION PT HGB 8.5 TODAY.
--- NOTE | 2018-09-27 07:30 | NUR ---
RN NOTES RECEIVED PATIENT IN BED, AWAKE, ABLE TO TRACT EYES. NO ACUTE RESPIRATORY DISTRESS. TRACH TUBE IN PLACE CONNECTED TO PRESCRIBED SETTING, SETTING TOLERATED WELL. ON TELE MONITOR: SINUS RHYTHM HR AT 75BPM. WITH LEFT CHEST TUBE DRAINAGE AT APPROXIMATELY 1450 CC, S/P LEFT PIGTAIL INSERTION, PIGTAIL CONNECTED TO DRAINING BAG- APPROXIMATELY 10CC OF YELLOWISH COLOR OUTPUT. DRESSING INTACT. NO AIR LEAKING. IV SITE ON RIJ INTACT AND FLUSHED WELL. REDUCED PRESSURE TO BONY PROMINENCE AREA. SAFETY AND ASPIRATION PRECAUTIONS OBSERVED AND MAINTAINED . WILL CONTINUE TO MONITOR.
--- NOTE | 2018-09-27 07:53 | NUR ---
RT PATIENT REC'D TRACHED ON [facility] PADMINI WELL. VENT ALARMS CHECKED + AUDIBLE. B/S DIM. AIRWAY PATENT AND SUCTIONED WITH SMALL AMT PALE SEMITHICK SECRETIONS. PATIENT STABLE NO SOB AT THIS TIME. AMBU BAG AT HOB Addendum: 09/27/18 at 0753 by DEL THORNTON RT Amended: Links added.
--- NOTE | 2018-09-27 08:30 | NUR ---
RN NOTES a. CLARIFIED WITH RITA MOSES ABOUT PENDING BLOOD TRANSFUSION ORDER FROM YESTERDAY FOR HGB AT 6.5. HGB CAME AT 8.5 TODAY, ASKED LATER IF BLOOD IS STILL TO BE GIVEN, PER AURELIA, WOODS MANAGER NO TRANSFUSION TODAY. b. AND IF DIET CAN BE RESUMED. ORDER OBTAINED TO RESUME DIET. ORDER NOTED AND CARRIED OUT
[2018-09-27] MEDS: PROSOURCE / PROSTAT (PYXIS) 30 ML UDC GT SCH (08:42)
[2018-09-27] MEDS: LACTOBACILLUS RHAMNOSUS GG 1 EACH CAP.SPRINK PO SCH ×2 (08:42→17:25)
[2018-09-27] MEDS: MULTIVITAMINS,THERAGRAN 1 UDTAB TABLET GT SCH (08:42)
[2018-09-27] MEDS: ASCORBIC ACID 500 MG TABLET GT SCH (08:42)
[2018-09-27] MEDS: PANTOPRAZOLE 40 MG/PACK PACK GT SCH (08:42)
[2018-09-27] MEDS: DAKINS QUARTER STRENGTH (0.125%) 480 ML BOTTLE TOP SCH (08:44)
[2018-09-27] MEDS: HYDROGEL DRESSING 90 GM TUBE TP SCH (08:45)
[2018-09-27] MEDS: Z GUARD REMEDY 2 OZ OINT TP SCH (08:45)
--- NOTE | 2018-09-27 09:15 | NUR ---
RN NOTES SEEN AND EXAMINED BY DR MARTE, WITH ORDER TO CONNECT PIGTAIL CHEST TUBE TO CONTINUOUS SUCTION AT 20CM FOR AN HOUR AND A CHEST XRAY AFTER. ORDER NOTED AND CARRIED OUT.
[2018-09-27] MEDS ORDERED: POTASSIUM CHLORIDE 20 MEQ TAB.PRT.SR PO SCH (11:30)
[2018-09-27] MEDS: GLUCERNA 1.2 1,000 ML BOTTLE NG PRN (12:15)
[2018-09-27] MEDS: INSULIN REGULAR, HUMAN 100 UNIT/ML 3 ML VIAL SQ PRN ×2 (12:16→17:45)
[2018-09-27] MEDS: LEVETIRACETAM SOL (5 ML) 100 MG/ML UDC PO SCH (12:27)
[2018-09-27] MEDS: ATORVASTATIN 10 MG TABLET PO SCH (12:27)
--- NOTE | 2018-09-27 15:25 | NUR ---
RN NOTES RELAYED XRAY RESULT S/P CONTINUOUS SUCTION TO DR MARTE. AWAITING FOR RESPONSE BACK.
--- NOTE | 2018-09-27 17:14 | NUR ---
RN NOTES OBTAINED ORDER TO PUT PIGTAIL TO CONTINUOUS SUCTION AT 20CM FROM DR. MARTE. ORDER NOTED AND CARRIED OUT
[2018-09-27] MEDS: TOBRAMYCIN 80 MG in IV D5W 50 ML IV SCH (17:25)
[2018-09-27] MEDS ORDERED: IV NS 0.9% 250 ML BAG IV ONE (18:00)
[2018-09-27] MEDS ORDERED: IV NS 0.9% 250 ML IV ONE (18:00)
--- NOTE | 2018-09-27 19:13 | NUR ---
RN NOTES ENDORSED PATIENT FOR CONTINUITY OF CARE. NO ACUTE CHANGES WITHIN THE SHIFT .TRACH AND VENT SETTING TOLERATED WELL. REMAINED SR ON TELE MONITOR. CT AND PIGTAIL INTACT AND ON CONTINUOUS SUCTION. NO AIR LEAKING. RIJ INTACT AND PATENT WITH TKO. KEPT PT CLEAN AND DRY. ALL NURSING NEEDS ANTICIPATED, ATTENDED AND MET. ASPIRATION AND SAFETY PRECAUTIONS OBSERVED AND MAINTAINED. BED LOW AND LOCKED. CALL LIGHT WITHIN REACH
--- NOTE | 2018-09-27 19:40 | NUR ---
JOSEFINA RN NOTES RECEIVED BEDSIDE REPORT FROM AM NURSE. PATIENT IN BED, AWAKE, ABLE TO TRACT EYES. NO ACUTE RESPIRATORY DISTRESS NOTED AT THIS TIME. VENT DEPENDANT, SETTING TOLERATED WELL. ON TELE MONITOR: SINUS RHYTHM. LEFT CHEST TUBE IN PLACE AND DRAINAGE AT APPROXIMATELY 1300CC, PIGTAIL INTACT AND ON CONTINUOUS SUCTION WITH APPROXIMATELY 20CC OF YELLOWISH COLOR DRAINAGE . CHEST TUBE DRESSING INTACT. NO AIR LEAKING. IV SITE ON RIJ INTACT AND FLUSHED WELL. ALL SAFETY MEASURES ARE IMPLEMENTED. SAFETY AND ASPIRATION PRECAUTIONS OBSERVED AND MAINTAINED, BED IN LOW, LOCKED POSITION, CALL LIGHT IN REACH. WILL CONTINUE TO MONITOR.
[2018-09-28] VITALS (8 sets, daily range): BP systolic 87–117; BP diastolic 54–66
[2018-09-28] MEDS: BLOOD SUGAR DIAGNOSTIC 1 EACH STRIP IN SCH ×4 (00:24→17:53)
[2018-09-28] MEDS: INSULIN REGULAR, HUMAN 100 UNIT/ML 3 ML VIAL SQ PRN ×4 (00:29→17:53)
--- NOTE | 2018-09-28 03:51 | NUR ---
PATIENT RECEIVED ON MECHANICAL VENTILATION SUPPORT WITH SETTINGS OF AC 14, 400 VT, 40%, +0. SUCTIONED FOR LARGE, THIN, YELLOW-FROTHY SECRETIONS. AMBU BAG AT BEDSIDE. VENT ALARMS AUDIBLE AND VISIBLE. VENT PLUGGED INTO RED OUTLET. Addendum: 09/28/18 at 0353 by MILLIE CAMPBELL RT Amended: Links added.
[2018-09-28] MEDS: CEFEPIME 2 GM in IV D5W 100 ML IV SCH ×3 (05:34→20:59)
--- NOTE | 2018-09-28 06:15 | NUR ---
JOSEFINA RN CLOSING NOTES PATIENT IS IN BED, AWAKE, ABLE TO TRACT EYES. NO ACUTE RESPIRATORY DISTRESS NOTED DURING MY SHIFT. VENT DEPENDANT, SETTING TOLERATED WELL. ON TELE MONITOR SINUS RHYTHM. LEFT CHEST TUBE IN PLACE AND STILL DRAINAGE AT APPROXIMATELY 1300CC, PIGTAIL INTACT AND ON CONTINUOUS SUCTION WITH APPROXIMATELY 150CC OF MONACO COLOR DRAINAGE . CHEST TUBE DRESSING INTACT. NO AIR LEAKING. IV SITE ON RIJ INTACT AND FLUSHED WELL. ALL SAFETY MEASURES ARE IMPLEMENTED. SAFETY AND ASPIRATION PRECAUTIONS OBSERVED AND MAINTAINED, BED IN LOW, LOCKED POSITION, CALL LIGHT IN REACH. WILL ENDORSE TO AM SHIFT RN FOR BURIAL VAULT MAKER.
[2018-09-28 06:40] LABS: CALCIUM, SERUM 8.1 mg/dL (8.5-10.1); CREATININE 0.7 mg/dL (0.6-1.3); POTASSIUM 3.5 mmol/L (3.5-5.1)
--- NOTE | 2018-09-28 08:00 | NUR ---
received pt from manager night, lethargic, open eyes, does not follow commands, SR, on vent, lungs congested, pitting edema all extremities, 2 chest tubes intact, no leak noted, GT to feeding tolerates well, v/s stable, no pain, pt turned and repositioned.
[2018-09-28] MEDS: ATORVASTATIN 10 MG TABLET PO SCH (08:52)
[2018-09-28] MEDS: LEVETIRACETAM SOL (5 ML) 100 MG/ML UDC PO SCH (08:52)
[2018-09-28] MEDS: MULTIVITAMINS,THERAGRAN 1 UDTAB TABLET GT SCH (08:53)
[2018-09-28] MEDS: PANTOPRAZOLE 40 MG/PACK PACK GT SCH (08:53)
[2018-09-28] MEDS: ASCORBIC ACID 500 MG TABLET GT SCH (08:53)
[2018-09-28] MEDS: LACTOBACILLUS RHAMNOSUS GG 1 EACH CAP.SPRINK PO SCH ×2 (08:53→16:07)
[2018-09-28] MEDS: DAKINS QUARTER STRENGTH (0.125%) 480 ML BOTTLE TOP SCH (08:54)
[2018-09-28] MEDS: PROSOURCE / PROSTAT (PYXIS) 30 ML UDC GT SCH (08:54)
[2018-09-28] MEDS: HYDROGEL DRESSING 90 GM TUBE TP SCH (08:55)
[2018-09-28] MEDS: Z GUARD REMEDY 2 OZ OINT TP SCH (08:55)
--- NOTE | 2018-09-28 09:59 | NUR ---
RT RECD PT TRACHED INTACT AND SECURE ON MECH VENT ALARMS ON AND AUDIBLE VENT PLUGGED IN RED OUTLET BAG AND MASK AT HOB SX THICK YELLOW SECRETIONS NO RESP DISTRESS WILL CONT TO MONITOR
[2018-09-28 10:55] LABS: ABG BASE EXCESS 5.4 mmol/L; ABG OXYGEN SATURATION 96.5 % (92.0-98.5); ABG PCO2 44.6 mmHg (35.0-45.0); ABG PH 7.447 (7.350-7.450); ABG PO2 92.3 mmHg (75.0-100.0); AaDO2 141.6 mmHg; COHb 0.2 % (0.5-1.5); MetHb 0.7 % (0.0-1.5); O2Hb 95.6 % (94.0-97.0); PEEP,BG 0 cm H2O; SITE, ABG Left Radial; VT, ABG 400 mL
[2018-09-28] MEDS: TOBRAMYCIN 80 MG in IV D5W 50 ML IV SCH (16:07)
--- NOTE | 2018-09-28 16:27 | NUR ---
pt non verbal, opens eyes, SR, on the vent, tolerates feeding, good urine output, v/s stable, no pain, pt cleaned, changed and repositioned q2hrs.
--- NOTE | 2018-09-28 20:00 | NUR ---
RN INITIAL NOTES RECEIVED PATIENT IN BED, AWAKE, ABLE TO TRACT EYES. NO ACUTE RESPIRATORY DISTRESS NOTED AT THIS TIME. VENT DEPENDANT, SETTING TOLERATED WELL. ON TELE MONITOR: SINUS RHYTHM. LEFT CHEST TUBE IN PLACE AND DRAINAGE AT APPROXIMATELY 1300CC, PIGTAIL INTACT AND ON CONTINUOUS SUCTION WITH APPROXIMATELY . CHEST TUBE DRESSING INTACT. NO AIR LEAKING. IV SITE ON RIJ INTACT AND FLUSHED WELL. TUBE FEED ORDERED. ALL SAFETY MEASURES ARE IMPLEMENTED. SAFETY AND ASPIRATION PRECAUTIONS OBSERVED AND MAINTAINED, BED IN LOW, LOCKED POSITION, CALL LIGHT IN REACH. WILL CONTINUE TO MONITOR.
[2018-09-29] VITALS: BP 112/65
[2018-09-29] MEDS: BLOOD SUGAR DIAGNOSTIC 1 EACH STRIP IN SCH ×5 (00:01→23:37)
[2018-09-29] MEDS: INSULIN REGULAR, HUMAN 100 UNIT/ML 3 ML VIAL SQ PRN ×5 (00:07→23:40)
[2018-09-29 04:00] VITALS: BP 125/72
[2018-09-29] MEDS: CEFEPIME 2 GM in IV D5W 100 ML IV SCH ×3 (05:12→20:09)
[2018-09-29] MEDS: GLUCERNA 1.2 1,000 ML BOTTLE NG PRN ×2 (05:24→22:20)
--- NOTE | 2018-09-29 06:09 | NUR ---
RN CLOSING NOTES PATIENT IS IN BED, AWAKE, ABLE TO TRACT EYES. NO ACUTE RESPIRATORY DISTRESS NOTED DURING MY SHIFT. VENT DEPENDANT, SETTING TOLERATED WELL. ON TELE MONITOR SINUS RHYTHM. LEFT CHEST TUBE IN PLACE AND STILL DRAINAGE AT APPROXIMATELY, PIGTAIL INTACT AND ON CONTINUOUS SUCTION. CHEST TUBE DRESSING INTACT. NO AIR LEAKING. IV SITE ON RIJ INTACT AND FLUSHED WELL. ALL SAFETY MEASURES ARE IMPLEMENTED. SAFETY AND ASPIRATION PRECAUTIONS OBSERVED AND MAINTAINED, BED IN LOW, LOCKED POSITION, CALL LIGHT IN REACH. WILL ENDORSE TO AM SHIFT RN FOR LEYDA.
[2018-09-29 06:34] LABS: BASOPHILS % (AUTO) 0.4 % (0.0-2.0); EOSINOPHILS % (AUTO) 0.5 % (0.0-6.0); HEMATOCRIT 26 % (39-51); HEMOGLOBIN 8.4 g/dL (13.5-17.5); LYMPHOCYTES # (AUTO) 0.5 /CMM (0.8-4.8); LYMPHOCYTES % (AUTO) 4.7 % (20.0-44.0); MEAN CORPUSCULAR HGB CONC 33 g/dl (31.0-36.0); MEAN CORPUSCULAR VOLUME 89 fL (80-96); MONOCYTES # (AUTO) 0.4 /CMM (0.1-1.30); MONOCYTES % (AUTO) 3.7 % (2.0-12.0); NEUTROPHILS # (AUTO) 10.4 /CMM (1.8-8.9); NEUTROPHILS % (AUTO) 90.7 % (43.0-81.0); PLATELET COUNT (AUTO) 253 /CMM (150-450); RED BLOOD CELL COUNT(AUTO) 2.89 MIL/uL (4.5-6.0); WHITE BLOOD COUNT (AUTO) 11.4 K/uL (4.3-11.0)
[2018-09-29 06:44] LABS: BILIRUBIN,TOTAL 0.3 mg/dL (0.2-1.0); CALCIUM, SERUM 8.3 mg/dL (8.5-10.1); CREATININE 0.7 mg/dL (0.6-1.3); PHOSPHORUS 2.2 mg/dL (2.5-4.9); POTASSIUM 3.7 mmol/L (3.5-5.1); TOTAL PROTEIN, SERUM 5.9 g/dL (6.4-8.2)
[2018-09-29 07:24] LABS: ALBUMIN 0.8 g/dL (3.4-5.0)
[2018-09-29 08:00] VITALS: BP 103/63
--- NOTE | 2018-09-29 08:00 | NUR ---
ACADEMIC MANAGER NOTES PATIENT IN BED , NONVERBAL ABLE TO OPEN HIS BOTH EYS WHEN CALLING HIS NAME WITH TRACH TO VENT SETTING ORDERED, SETTING TOLERATED WELL. ON TELE MONITOR SINUS RHYTHM. LEFT CHEST TUBE IN PLACE . PIGTAIL INTACT AND ON CONTINUOUS SUCTION. CHEST TUBE DRESSING INTACT. IV SITE ON RIJ INTACT AND FLUSHED WELL. ALL SAFETY MEASURES ARE IMPLEMENTED. SAFETY AND ASPIRATION PRECAUTIONS OBSERVED AND MAINTAINED, BED IN LOW, LOCKED POSITION, CALL LIGHT IN REACH. WILL CONT TO MONITOR CLOSELY
[2018-09-29] MEDS: MULTIVITAMINS,THERAGRAN 1 UDTAB TABLET GT SCH (08:56)
[2018-09-29] MEDS: LACTOBACILLUS RHAMNOSUS GG 1 EACH CAP.SPRINK PO SCH ×2 (08:56→16:40)
[2018-09-29] MEDS: PANTOPRAZOLE 40 MG/PACK PACK GT SCH (08:56)
[2018-09-29] MEDS: LEVETIRACETAM SOL (5 ML) 100 MG/ML UDC PO SCH (08:56)
[2018-09-29] MEDS: ASCORBIC ACID 500 MG TABLET GT SCH (08:57)
[2018-09-29] MEDS: ATORVASTATIN 10 MG TABLET PO SCH (08:57)
[2018-09-29] MEDS: HYDROGEL DRESSING 90 GM TUBE TP SCH (08:58)
[2018-09-29] MEDS: Z GUARD REMEDY 2 OZ OINT TP PRN (09:00)
[2018-09-29] MEDS: Z GUARD REMEDY 2 OZ OINT TP SCH (09:04)
[2018-09-29] MEDS: PROSOURCE / PROSTAT (PYXIS) 30 ML UDC GT SCH (09:26)
[2018-09-29] MEDS: DAKINS QUARTER STRENGTH (0.125%) 480 ML BOTTLE TOP SCH (09:32)
[2018-09-29] MEDS ORDERED: NEUTRA PHOS 1 POWD.PACKET GT ONE (10:00)
--- NOTE | 2018-09-29 11:31 | NUR ---
LOG LOADER MATILDE SPOKE WITH RITA MOSES RN BUSINESS TAXES SPECIALIST NOTIFIED THAT ALBUMIN 0.8 ORDERED DIETARY CONSULT, ORDER CARRIED OUT . ALSO SPOKE WITH DR MARTE ONLINE CONTENT COORDINATOR AWARE THAT PIGTAIL CATH TO SUCTION WIT PURULENT DRAINAGE AND10 ML FROM CHEST TUBE WITH YELLOW COLOR DRAINAGE
[2018-09-29 12:00] VITALS: BP 108/58
[2018-09-29] MEDS: TOBRAMYCIN 100 MG in IV D5W 50 ML IV SCH (13:58)
--- NOTE | 2018-09-29 14:13 | NUR ---
BAKER OPERATOR AUTOMATIC NOTE TRACH SUCTION DONE ,NOTED YELLOW THICK SECRETION , LARGE AMT, KEEP CLEAN DRY, , CONT CHEST TUBE AND PIG TAIL CATH TO SUCTION LT CHEST WALL , MADE BM , WILL CONT TO MONITOR CLOSELY
--- NOTE | 2018-09-29 15:01 | NUR ---
television director note report given to clotilde pagan
--- NOTE | 2018-09-29 15:05 | NUR ---
PUMP OPERATOR [employer]PRODUCTS NOTE: RESUMED CARE FOR THE PATIENT AND REPORT WAS RECEIVED FROM ESTRELLA TAYLOR.
[2018-09-29 16:00] VITALS: BP 99/56
--- NOTE | 2018-09-29 19:29 | NUR ---
FLAT BED OPERATOR NOTE: REPORT GIVEN TO PM SHIFT NURSE FOR CONTINUITY OF CARE. EMPHASIZED THE MISCELLANEOUS ORDER FROM DR. MARTE RE: TO CLAMP THE CHEST TUBE IN AM AND TO DO A CHEST X-RAY AFTER 1 HOUR. PATIENT REMAINED ON STABLE CONDITION.
--- NOTE | 2018-09-29 19:55 | NUR ---
CAMPAIGN MANAGEMENT SPECIALIST NOTE: RECEIVED PT ON BED WITH NO ACUTE DISTRESS NOTED. NO FACIAL GRIMACING OR ANY SIGNS OF PAIN NOTED. ON THE [facility] VENT, SETTINGS ORDERED. NO SOB NOTED. SUCTIONED TRACH NEEDED. SINUS TACHY ON TELE MONITOR HR 107 BPM. GT INTACT AND PATENT, NO RESIDUAL NOTED AT THIS TIME. CHEST TUBE, PIGTAIL AND SEXTON CATH INTACT, DRAINING WELL. KEPT CLEAN, DRY AND COMFORTABLE. SAFETY AND FALL PRECAUTIONS OBSERVED AND MAINTAINED. WILL CONTINUE TO MONITOR PT.
[2018-09-29 20:00] VITALS: BP 111/60
--- NOTE | 2018-09-29 23:36 | NUR ---
PT RCALFREDO'D ON MECHANICAL VENT WITH CHARTED SETTINGS. SX DONE. PT TRACH PATENT AND SECURE. AMBU BAG AT BEDSIDE. VENT PLUGGED INTO RED OUTLET. ALARMS ARE SET AND AUDIBLE. WILL CONTINUE TO MONITOR. Addendum: 09/29/18 at 2336 by AL BARAHONA RT Amended: Links added.
[2018-09-30] VITALS: BP 134/70
[2018-09-30 04:00] VITALS: BP 135/68
[2018-09-30] MEDS: CEFEPIME 2 GM in IV D5W 100 ML IV SCH ×3 (05:08→21:19)
[2018-09-30] MEDS: BLOOD SUGAR DIAGNOSTIC 1 EACH STRIP IN SCH ×3 (05:17→17:57)
[2018-09-30] MEDS: INSULIN REGULAR, HUMAN 100 UNIT/ML 3 ML VIAL SQ PRN ×3 (05:18→17:59)
[2018-09-30 06:27] LABS: BASOPHILS # (AUTO) 0.1 /CMM (0.0-0.2); BASOPHILS % (AUTO) 0.6 % (0.0-2.0); EOSINOPHILS % (AUTO) 0.7 % (0.0-6.0); HEMATOCRIT 23 % (39-51); HEMOGLOBIN 7.8 g/dL (13.5-17.5); LYMPHOCYTES # (AUTO) 0.4 /CMM (0.8-4.8); LYMPHOCYTES % (AUTO) 4.3 % (20.0-44.0); MEAN CORPUSCULAR HGB CONC 33 g/dl (31.0-36.0); MEAN CORPUSCULAR VOLUME 88 fL (80-96); MONOCYTES # (AUTO) 0.5 /CMM (0.1-1.30); MONOCYTES % (AUTO) 4.9 % (2.0-12.0); NEUTROPHILS # (AUTO) 8.6 /CMM (1.8-8.9); NEUTROPHILS % (AUTO) 89.5 % (43.0-81.0); PLATELET COUNT (AUTO) 234 /CMM (150-450); RED BLOOD CELL COUNT(AUTO) 2.64 MIL/uL (4.5-6.0); WHITE BLOOD COUNT (AUTO) 9.6 K/uL (4.3-11.0)
[2018-09-30 06:56] LABS: CALCIUM, SERUM 7.7 mg/dL (8.5-10.1); CREATININE 0.8 mg/dL (0.6-1.3); MAGNESIUM 1.9 mg/dL (1.8-2.4); PHOSPHORUS 2.6 mg/dL (2.5-4.9); POTASSIUM 3.7 mmol/L (3.5-5.1)
--- NOTE | 2018-09-30 07:07 | NUR ---
HEALTH EDUCATION COORDINATOR NOTE: NO CHANGES NOTED THROUGHOUT THE SHIFT. NO APPARENT DISTRESS NOTED. NO FACIAL GRIMACING OR ANY SIGNS OF PAIN NOTED. GT INTACT, NO RESIDUAL NOTED AT THIS TIME. ON TELE MONITOR SINUS RHYTHM HR 93BPM. CHEST TUBE CLAMPED ORDERED. KEPT CLEAN, DRY AND COMFORTABLE. SAFETY AND FALL PRECAUTIONS OBSERVED AND MAINTAINED. WILL ENDORSE TO DAY SHIFT RN FOR CONTINUITY OF CARE.
[2018-09-30 08:00] VITALS: BP 104/64
--- NOTE | 2018-09-30 08:26 | NUR ---
PT REC'D TRACHED ON [facility] VENT ON AC MODE. NO RESP DISTRESS OR SOB NOTED. SX'D FOR LARGE AMOUNT OF THIN MONACO SECRETIONS. TRACH PATENT AND SECURED. ALARMS ARE SET AND AUDIBLE. VENT PLUGGED INTO RED OUTLET. AMBU BAG BEDSIDE. WILL CONTINUE TO MONITOR. Addendum: 09/30/18 at 1557 by RIKA DOHERTY RT Amended: Links added.
[2018-09-30] MEDS: PANTOPRAZOLE 40 MG/PACK PACK GT SCH (08:48)
[2018-09-30] MEDS: ASCORBIC ACID 500 MG TABLET GT SCH (08:48)
[2018-09-30] MEDS: ATORVASTATIN 10 MG TABLET PO SCH (08:48)
[2018-09-30] MEDS: DAKINS QUARTER STRENGTH (0.125%) 480 ML BOTTLE TOP SCH (08:48)
[2018-09-30] MEDS: LEVETIRACETAM SOL (5 ML) 100 MG/ML UDC PO SCH (08:48)
[2018-09-30] MEDS: LACTOBACILLUS RHAMNOSUS GG 1 EACH CAP.SPRINK PO SCH ×2 (08:48→17:06)
[2018-09-30] MEDS: MULTIVITAMINS,THERAGRAN 1 UDTAB TABLET GT SCH (08:48)
[2018-09-30] MEDS: PROSOURCE / PROSTAT (PYXIS) 30 ML UDC GT SCH (08:49)
[2018-09-30] MEDS: HYDROGEL DRESSING 90 GM TUBE TP SCH (08:49)
[2018-09-30] MEDS: Z GUARD REMEDY 2 OZ OINT TP SCH (08:49)
--- NOTE | 2018-09-30 09:22 | NUR ---
BASEBALL UMPIRE FOR LITTLE LEAGUE DF PER ORDERS OF PELEG CLAMP LEFT SIDE CHEST TUBE IN AM PERFORM PCXR, IF PTHX IS INCREASED UNCLAMP CHEST TUBE. PER PCXR NO PTHX NOTED WILL KEEP CHEST TUBE CLAMPED PER ORDERS. PT WITH LEFT SIDED PIGTAIL CATH TO [address] DRAINING MODERATE THICK MUCOUS. VSS. NAD NOTED.
[2018-09-30 12:00] VITALS: BP 111/60
--- NOTE | 2018-09-30 15:14 | NUR ---
MARKETING PROJECT SPECIALIST DF PT WITH PLEURAL FLUID LEAKING FROM CHEST TUBE SITE, PER PREVIOUS ORDERS/RN NOTES PT CHEST TUBE WAS CLAMPED. CHEST TUBE UNCLAMPED 2ND EXCESS LEAKING FLUID. PULMONARY MD AWARE. VSS. NAD NOTED.
[2018-09-30] MEDS: TOBRAMYCIN 100 MG in IV D5W 50 ML IV SCH (15:19)
[2018-09-30 16:00] VITALS: BP_SYST 106; BP_SYST 122; BP_DIAS 58; BP_DIAS 67
--- NOTE | 2018-09-30 19:54 | NUR ---
RT PT RECEIVED TRACHED ON [facility] VENT ON CHARTED SETTINGS. NO SIGNS OF RESP DISTRESS AT THIS TIME. AIRWAY PATENT AND SECURED. PT SUCTIONED MOD AMT OF YELLOW THICK SECRETIONS. AMBUBAG AT BEDSIDE. ALARMS SET AND AUDIBLE. VENT CONNECTED TO RED OUTLET. WILL CONT. TO MONITOR. Addendum: 09/30/18 at 1957 by ISABEL NEW RT Amended: Links added.
[2018-09-30 20:00] VITALS: BP 133/71
--- NOTE | 2018-09-30 20:00 | NUR ---
Received patient resting in no acute distress.Maintained on full vent support at prescribed rate well tolerated.O2 saturation 97%-100% and secretions suctioned prn.Left chest tube and pig tail to suction.Site with dressing C/D/I.Tele monitoring shows SR 80's-90's.GT feeding infusing no residual noted.HOB elevated.FC with moderate output.Will turn and reposition Q hrs.
[2018-10-01] VITALS (7 sets, daily range): BP systolic 90–134; BP diastolic 48–76
[2018-10-01] MEDS: BLOOD SUGAR DIAGNOSTIC 1 EACH STRIP IN SCH ×5 (00:07→23:45)
[2018-10-01] MEDS: INSULIN REGULAR, HUMAN 100 UNIT/ML 3 ML VIAL SQ PRN ×5 (00:09→23:47)
[2018-10-01] MEDS: CEFEPIME 2 GM in IV D5W 100 ML IV SCH ×3 (05:01→20:15)
[2018-10-01 06:21] LABS: CREATININE 0.7 mg/dL (0.6-1.3); POTASSIUM 4.1 mmol/L (3.5-5.1)
--- NOTE | 2018-10-01 06:45 | NUR ---
Patient resting .AM care done.VS remains stable.No significant change noted during the shift. Will endorse to day shift RN for further care and management.
[2018-10-01] MEDS: ASCORBIC ACID 500 MG TABLET GT SCH (09:32)
[2018-10-01] MEDS: MULTIVITAMINS,THERAGRAN 1 UDTAB TABLET GT SCH (09:32)
[2018-10-01] MEDS: ATORVASTATIN 10 MG TABLET PO SCH (09:32)
[2018-10-01] MEDS: PANTOPRAZOLE 40 MG/PACK PACK GT SCH (09:32)
[2018-10-01] MEDS: Z GUARD REMEDY 2 OZ OINT TP PRN (09:33)
[2018-10-01] MEDS: HYDROGEL DRESSING 90 GM TUBE TP SCH (09:33)
[2018-10-01] MEDS: DAKINS QUARTER STRENGTH (0.125%) 480 ML BOTTLE TOP SCH (09:34)
[2018-10-01] MEDS: Z GUARD REMEDY 2 OZ OINT TP SCH (09:34)
[2018-10-01] MEDS: PROSOURCE / PROSTAT (PYXIS) 30 ML UDC GT SCH (09:36)
[2018-10-01] MEDS: LACTOBACILLUS RHAMNOSUS GG 1 EACH CAP.SPRINK PO SCH ×2 (09:36→17:16)
[2018-10-01] MEDS: LEVETIRACETAM SOL (5 ML) 100 MG/ML UDC PO SCH (09:36)
[2018-10-01] MEDS ORDERED: QUET100T PO (12:03)
[2018-10-01] MEDS ORDERED: TRAZ-214 PO (12:03)
[2018-10-01] MEDS ORDERED: GABA800T3 PO (12:03)
[2018-10-01] MEDS ORDERED: MELO-107 PO (12:03)
[2018-10-01] MEDS ORDERED: ALPR0.5T8 PO (12:03)
[2018-10-01] MEDS ORDERED: VENL150T PO (12:03)
[2018-10-01] MEDS ORDERED: METO-356 PO (12:03)
[2018-10-01] MEDS ORDERED: TRAM50TA2 PO (12:03)
[2018-10-01] MEDS ORDERED: METH-406 PO (12:03)
[2018-10-01] MEDS: TOBRAMYCIN 100 MG in IV D5W 50 ML IV SCH (13:08)
--- NOTE | 2018-10-01 20:00 | NUR ---
RN/TELE NOTES: RECEIVED PT. IN BED W/ HOB ELEVATED. W/ EYES OPEN. NON VERBAL. RESPONSE TO PAINFUL/TACTILE STIMULI. NO FACIAL GRIMACES OR MOANING NOTED. ON MECHANICAL VENT TOLERATING WELL. CONTINUE TO SUCTION PRN FOR THICK SECRETIONS. LEFT CHEST TUBE AND PIG TAIL TO SUCTION. SITE W/ DRESSING C/D/I. ON GTF TOLERATING WELL W/ NO RESIDUAL NOTED. F/C PATENT AND INTACT DRAINING VIA GRAVITY. TURNED AND REPOSITIONED Q 2 HRS. CALL LIGHT W/ REACH.
[2018-10-02] VITALS: BP 104/59
[2018-10-02 04:00] VITALS: BP 105/59
[2018-10-02] MEDS: CEFEPIME 2 GM in IV D5W 100 ML IV SCH ×3 (05:45→21:25)
[2018-10-02] MEDS: BLOOD SUGAR DIAGNOSTIC 1 EACH STRIP IN SCH ×3 (05:50→17:27)
[2018-10-02] MEDS: INSULIN REGULAR, HUMAN 100 UNIT/ML 3 ML VIAL SQ PRN ×3 (05:52→17:30)
[2018-10-02] MEDS: GLUCERNA 1.2 1,000 ML BOTTLE NG PRN (06:31)
[2018-10-02 06:57] LABS: BASOPHILS # (AUTO) 0.1 /CMM (0.0-0.2); BASOPHILS % (AUTO) 0.6 % (0.0-2.0); EOSINOPHILS % (AUTO) 0.6 % (0.0-6.0); HEMATOCRIT 23 % (39-51); HEMOGLOBIN 7.6 g/dL (13.5-17.5); LYMPHOCYTES # (AUTO) 0.4 /CMM (0.8-4.8); LYMPHOCYTES % (AUTO) 5.1 % (20.0-44.0); MEAN CORPUSCULAR HGB CONC 33 g/dl (31.0-36.0); MEAN CORPUSCULAR VOLUME 89 fL (80-96); MONOCYTES # (AUTO) 0.9 /CMM (0.1-1.30); MONOCYTES % (AUTO) 11.4 % (2.0-12.0); NEUTROPHILS # (AUTO) 6.6 /CMM (1.8-8.9); NEUTROPHILS % (AUTO) 82.3 % (43.0-81.0); PLATELET COUNT (AUTO) 233 /CMM (150-450); RED BLOOD CELL COUNT(AUTO) 2.62 MIL/uL (4.5-6.0)
[2018-10-02 07:07] LABS: CALCIUM, SERUM 7.6 mg/dL (8.5-10.1); CREATININE 0.7 mg/dL (0.6-1.3); MAGNESIUM 1.7 mg/dL (1.8-2.4); PHOSPHORUS 2.4 mg/dL (2.5-4.9); POTASSIUM 4.1 mmol/L (3.5-5.1)
--- NOTE | 2018-10-02 07:40 | NUR ---
CHIROPRACTIC CARE OPENING NOTES: RECEIVED PATIENT AWAKE IN BED IN NO ACUTE SIGNS OF DISTRESS. HOB ELEVATED. NON-VERBAL, EYES OPEN AND RESPONSIVE TO PAINFUL/TACTILE STIMULI. NO FACIAL GRIMACES OR MOANING NOTED AT THIS TIME. PT ON MECHANICAL VENT @ PRESCRIBED SETTINGS, TOLERATING SETTINGS WELL. LEFT CHEST TUBE IN PLACE AND PIG TAIL TO SUCTION, SITE WITH DRESSING C/D/I. ON TELE-MONITORING WITH CURRENT READING OF SINUS TACHY WITH HR OF 112. PT WITH TRIPLE LUMEN RIGHT IJ IV ACCESS INTACT AND PATENT. PT WITH G-TUBE FEEDING OF GLUCERNA AT PRESCRIBED RATE, TOLERATING WELL W/ NO RESIDUAL NOTED. ASPIRATION PRECAUTIONS MAINTAINED. SEXTON IN PLACE PATENT AND INTACT, DRAINING CLEAR YELLOW URINE VIA GRAVITY. SAFETY MEASURES IN PLACE. BED IN LOW LOCKED POSITION WITH SR UP X3. CALL LIGHT IN REACH. WILL CONTINUE TO MONITOR PT ACCORDINGLY.
--- NOTE | 2018-10-02 07:43 | NUR ---
RN/TELE NOTES: REPORT GIVEN TO NEXT SHIFT NURSE. NO OUTPUT FROM THE CHEST TUBE. AM NURSE INFORMED.
[2018-10-02 08:00] VITALS: BP 100/57
[2018-10-02] MEDS: MULTIVITAMINS,THERAGRAN 1 UDTAB TABLET GT SCH (08:35)
[2018-10-02] MEDS: ASCORBIC ACID 500 MG TABLET GT SCH (08:35)
[2018-10-02] MEDS: LEVETIRACETAM SOL (5 ML) 100 MG/ML UDC PO SCH (08:35)
[2018-10-02] MEDS: PANTOPRAZOLE 40 MG/PACK PACK GT SCH (08:35)
[2018-10-02] MEDS: ATORVASTATIN 10 MG TABLET PO SCH (08:35)
[2018-10-02] MEDS: PROSOURCE / PROSTAT (PYXIS) 30 ML UDC GT SCH (08:35)
[2018-10-02] MEDS: LACTOBACILLUS RHAMNOSUS GG 1 EACH CAP.SPRINK PO SCH ×2 (08:35→16:21)
[2018-10-02] MEDS: DAKINS QUARTER STRENGTH (0.125%) 480 ML BOTTLE TOP SCH (08:36)
[2018-10-02] MEDS: HYDROGEL DRESSING 90 GM TUBE TP SCH (08:36)
[2018-10-02] MEDS: Z GUARD REMEDY 2 OZ OINT TP SCH (08:37)
[2018-10-02] MEDS: Magnesium 1GM/D5W 100ML PREMIX 100 ML IV SCH ×2 (11:37→13:59)
[2018-10-02 12:00] VITALS: BP 115/65
[2018-10-02] MEDS ORDERED: NEUTRA PHOS 1 POWD.PACKET GT ONE (14:00)
--- NOTE | 2018-10-02 14:39 | NUR ---
RN NOTES PATIENT NOTED WITH LOW LEVEL MAGNESIUM 1.7 TODAY, REPLACED WITH MAGNESIUM 1GM/100D5W IV X2 DOSES. WILL CONTINUE TO MONITOR.
[2018-10-02] MEDS: TOBRAMYCIN 100 MG in IV D5W 50 ML IV SCH (15:06)
[2018-10-02 16:00] VITALS: BP 112/64
--- NOTE | 2018-10-02 16:59 | NUR ---
RN NOTES WILL ENDORSE TO INCOMING NIGHT NURSE TO CLAMP LEFT UPPER CHEST TUBE IN AM, CXR IN 2HRS AND CALL FOR RESULTS.
--- NOTE | 2018-10-02 18:49 | NUR ---
BENDING ROLL HAND CLOSING NOTES: PATIENT IN BED LYING COMFORTABLY AT MODERATE HIGH BACKREST POSITION. NON-VERBAL, EYES OPEN AND RESPONSIVE TO PAINFUL/TACTILE STIMULI. CONTINUES ON MECHANICAL VENT @ PRESCRIBED PARAMETERS, TOLERATING SETTINGS WELL WITH NO ACUTE RESPIRATORY DISTRESS NOTED. SUCTIONED PRN, OBTAINED THICK YELLOWISH SECRETIONS. LEFT CHEST TUBE IN PLACE AND PIG TAIL TO SUCTION, SITE WITH DRESSING C/D/I. CHEST TUBE DRAINAGE THIS SHIFT IS 10ML SEROSANGUINEOUS. PT TELE-MONITORING WITH CURRENT READING OF SINUS RHYTHM WITH HR OF 90. TRIPLE LUMEN RIGHT IJ IV ACCESS INTACT AND PATENT. G-TUBE FEEDING OF GLUCERNA AT PRESCRIBED RATE IN PROGRESS, TOLERATING WELL W/ NO RESIDUAL NOTED. ASPIRATION PRECAUTIONS MAINTAINED. SEXTON IN PLACE PATENT AND INTACT, DRAINING CLEAR YELLOW URINE VIA GRAVITY, SEXTON CARE DONE. PT TURNED AND REPOSITIONED FROM SIDE TO SIDE Q 2HRS AND PRN. KEPT CLEAN, DRY AND COMFORTABLE IN BED. ALL REQUIRED NURSING CARE RENDERED AND MAINTAINED. ALL SAFETY MEASURES IN PLACE. BED IN LOW LOCKED POSITION WITH SR UP X3. CALL LIGHT IN REACH. WILL ENDORSE TO COAL CUTTING MACHINE OPERATOR NURSE FOR LEYDA.
[2018-10-02 20:00] VITALS: BP 119/69
[2018-10-03] VITALS: BP 122/70
[2018-10-03] MEDS: BLOOD SUGAR DIAGNOSTIC 1 EACH STRIP IN SCH ×4 (00:30→17:20)
[2018-10-03] MEDS: INSULIN REGULAR, HUMAN 100 UNIT/ML 3 ML VIAL SQ PRN ×3 (00:34→17:22)
[2018-10-03 04:00] VITALS: BP 126/69
[2018-10-03] MEDS: CEFEPIME 2 GM in IV D5W 100 ML IV SCH ×3 (05:06→20:14)
[2018-10-03] MEDS: GLUCERNA 1.2 1,000 ML BOTTLE NG PRN (05:13)
--- NOTE | 2018-10-03 06:00 | NUR ---
TELE-1/HANNAH CHEST TUBES CLAMPPED. Addendum: 10/03/18 at 0701 by RENALDO QUIROS LVN ENDORSED TO DAYSHIFT TO HAVE CXR TAKEN AT [address] MARTE WITH RESULTS.
[2018-10-03 07:18] LABS: CALCIUM, SERUM 7.6 mg/dL (8.5-10.1); CREATININE 0.6 mg/dL (0.6-1.3); PHOSPHORUS 4.1 mg/dL (2.5-4.9); POTASSIUM 4.2 mmol/L (3.5-5.1)
[2018-10-03 08:00] VITALS: BP_SYST 111; BP_SYST 176; BP_DIAS 62; BP_DIAS 72
[2018-10-03] MEDS: DAKINS QUARTER STRENGTH (0.125%) 480 ML BOTTLE TOP SCH (08:31)
[2018-10-03] MEDS: HYDROGEL DRESSING 90 GM TUBE TP SCH (08:31)
[2018-10-03] MEDS: ASCORBIC ACID 500 MG TABLET GT SCH (08:33)
[2018-10-03] MEDS: PANTOPRAZOLE 40 MG/PACK PACK GT SCH (08:33)
[2018-10-03] MEDS: MULTIVITAMINS,THERAGRAN 1 UDTAB TABLET GT SCH (08:33)
[2018-10-03] MEDS: LEVETIRACETAM SOL (5 ML) 100 MG/ML UDC PO SCH (08:33)
[2018-10-03] MEDS: ATORVASTATIN 10 MG TABLET PO SCH (08:33)
[2018-10-03] MEDS: LACTOBACILLUS RHAMNOSUS GG 1 EACH CAP.SPRINK PO SCH ×2 (08:34→17:20)
[2018-10-03] MEDS: Z GUARD REMEDY 2 OZ OINT TP SCH (08:35)
[2018-10-03] MEDS: PROSOURCE / PROSTAT (PYXIS) 30 ML UDC GT SCH (09:55)
[2018-10-03 12:00] VITALS: BP 103/60
[2018-10-03] MEDS: TOBRAMYCIN 100 MG in IV D5W 50 ML IV SCH (14:55)
--- NOTE | 2018-10-03 15:18 | NUR ---
RT RECD PT TRACHED INTACT & SECURED ON MECH VENT ALARMS ON AND AUDIBLE, BAG AND MASK AT HOB VENT PLUGGED IN RED OUTLET SX THICK YELLOW LARGE SECRETIONS NO RESP DISTRESS NOTED ATT WILL CONT TO MONITOR
[2018-10-03 16:00] VITALS: BP 97/57
[2018-10-03 20:00] VITALS: BP 122/65
--- NOTE | 2018-10-03 20:00 | NUR ---
RN NOTE RECEIVED PATIENT FROM JOELLEN RN, PATIENT IS AWAKE, NON-VERBAL, NO RESPIRATORY DISTRESS NOTED, CHEST TUBE IS CLAMPED, ALL SAFETY MEASURES TAKEN, WILL CONTINUE TO MONITOR PATIENT
[2018-10-04] VITALS: BP 133/76
[2018-10-04] MEDS: BLOOD SUGAR DIAGNOSTIC 1 EACH STRIP IN SCH ×4 (00:12→17:14)
[2018-10-04] MEDS: INSULIN REGULAR, HUMAN 100 UNIT/ML 3 ML VIAL SQ PRN ×4 (00:14→17:16)
[2018-10-04] MEDS: GLUCERNA 1.2 1,000 ML BOTTLE NG PRN ×2 (01:14→18:53)
[2018-10-04 04:00] VITALS: BP 114/70
[2018-10-04] MEDS: CEFEPIME 2 GM in IV D5W 100 ML IV SCH ×3 (05:59→21:06)
[2018-10-04 07:01] LABS: BASOPHILS # (AUTO) 0.1 /CMM (0.0-0.2); BASOPHILS % (AUTO) 1.4 % (0.0-2.0); EOSINOPHILS % (AUTO) 1.2 % (0.0-6.0); HEMATOCRIT 24 % (39-51); HEMOGLOBIN 7.8 g/dL (13.5-17.5); LYMPHOCYTES # (AUTO) 0.4 /CMM (0.8-4.8); LYMPHOCYTES % (AUTO) 6.3 % (20.0-44.0); MEAN CORPUSCULAR HGB CONC 33 g/dl (31.0-36.0); MEAN CORPUSCULAR VOLUME 87 fL (80-96); MONOCYTES # (AUTO) 0.9 /CMM (0.1-1.30); MONOCYTES % (AUTO) 14.7 % (2.0-12.0); NEUTROPHILS # (AUTO) 4.7 /CMM (1.8-8.9); NEUTROPHILS % (AUTO) 76.4 % (43.0-81.0); PLATELET COUNT (AUTO) 256 /CMM (150-450); WHITE BLOOD COUNT (AUTO) 6.1 K/uL (4.3-11.0)
[2018-10-04 07:19] LABS: CALCIUM, SERUM 7.6 mg/dL (8.5-10.1); CREATININE 0.7 mg/dL (0.6-1.3); MAGNESIUM 1.9 mg/dL (1.8-2.4); PHOSPHORUS 3.2 mg/dL (2.5-4.9); POTASSIUM 4.1 mmol/L (3.5-5.1)
[2018-10-04 08:00] VITALS: BP 112/68
[2018-10-04] MEDS: PANTOPRAZOLE 40 MG/PACK PACK GT SCH (09:58)
[2018-10-04] MEDS: ATORVASTATIN 10 MG TABLET PO SCH (09:58)
[2018-10-04] MEDS: MULTIVITAMINS,THERAGRAN 1 UDTAB TABLET GT SCH (09:58)
[2018-10-04] MEDS: PROSOURCE / PROSTAT (PYXIS) 30 ML UDC GT SCH (09:58)
[2018-10-04] MEDS: LEVETIRACETAM SOL (5 ML) 100 MG/ML UDC PO SCH (09:58)
[2018-10-04] MEDS: ASCORBIC ACID 500 MG TABLET GT SCH (09:58)
[2018-10-04] MEDS: Z GUARD REMEDY 2 OZ OINT TP SCH (09:59)
[2018-10-04] MEDS: LACTOBACILLUS RHAMNOSUS GG 1 EACH CAP.SPRINK PO SCH ×2 (09:59→17:14)
[2018-10-04] MEDS: HYDROGEL DRESSING 90 GM TUBE TP SCH (09:59)
[2018-10-04] MEDS: DAKINS QUARTER STRENGTH (0.125%) 480 ML BOTTLE TOP SCH (09:59)
[2018-10-04 12:00] VITALS: BP 118/70
[2018-10-04 16:00] VITALS: BP 126/71
[2018-10-04] MEDS: TOBRAMYCIN 100 MG in IV D5W 50 ML IV SCH (16:01)
[2018-10-04 20:00] VITALS: BP 112/65
[2018-10-05] VITALS: BP 130/67
[2018-10-05] MEDS: BLOOD SUGAR DIAGNOSTIC 1 EACH STRIP IN SCH ×5 (00:08→23:53)
[2018-10-05] MEDS: INSULIN REGULAR, HUMAN 100 UNIT/ML 3 ML VIAL SQ PRN ×5 (00:09→23:49)
--- NOTE | 2018-10-05 00:20 | NUR ---
JOSEFINA/RAIL CAR REPAIRER BLOOD SUGAR IS 146, THIS WAS COVERED WITH 2 UNITS REGULAR INSULIN. WILL CONTINUE TO CHECK THIS PER MD ORDERS AND HOSPITAL PROTOCOL. PT WAS TURNED AND REPOSITIONED FOR COMFORT AND CARE.
--- NOTE | 2018-10-05 03:45 | NUR ---
JOSEFINA/LINOTYPE MECHANIC STAT CHEST XRAY WAS TAKEN DUE TO CHEST TUBE WAS REMOVED AND NO XRAY DONE POST THIS. XRAY DONE THERE IS NO NEW PNEUMOTHORAX. WILL CONTINUE TO MONITOR THIS PT AND RESPIRATORY.
[2018-10-05 04:00] VITALS: BP 114/53
[2018-10-05] MEDS: CEFEPIME 2 GM in IV D5W 100 ML IV SCH ×3 (04:23→21:20)
[2018-10-05] MEDS: GLUCERNA 1.2 1,000 ML BOTTLE NG PRN (04:36)
--- NOTE | 2018-10-05 04:45 | NUR ---
JOSEFINA/ADVISORY INTERN AM LABS WERE DRAWN, AWAIT ANY ABNORMAL RESULTS.
--- NOTE | 2018-10-05 05:28 | NUR ---
PATIENT RECEIVED ON MECHANICAL VENTILATION WITH SETTINGS OF AC 14, 400 VT, 40%, +0. SUCTIONED WITH LAVAGE FOR MINIMAL, THICK, YELLOW-CREAM SECRETIONS. AMBU BAG AT BEDSIDE. VENT ALARMS AUDIBLE AND VISIBLE. VENT PLUGGED INTO RED OUTLET. Addendum: 10/05/18 at 0530 by MILLIE CAMPBELL RT Amended: Links added.
--- NOTE | 2018-10-05 05:49 | NUR ---
JOSEFINA/DRIVER'S EDUCATION INSTRUCTOR PT'S WEIGHT WAS TAKEN AFTER BED WAS STRIPPED DOWN, WEIGHT IS 129.
--- NOTE | 2018-10-05 06:39 | NUR ---
JOSEFINA/GRAPHIC DESIGN PROFESSOR PT'S BLOOD SUGAR IS 213 THIS WAS COVERED WITH 6 UNITS REGULAR INSULIN, WILL CONTINUE TO MONITOR THIS PT'S SUGAR ORDERED BY MD. PT WAS TURNED AND REPOSITIONED FOR COMFORT AND CARE.
[2018-10-05 06:42] LABS: CALCIUM, SERUM 6.7 mg/dL (8.5-10.1); CREATININE 0.7 mg/dL (0.6-1.3); POTASSIUM 4.3 mmol/L (3.5-5.1)
--- NOTE | 2018-10-05 07:10 | NUR ---
MATERIALS MANAGEMENT SUPERVISOR OPENING NOTES RECEIVED PT ON BED.ALERT/ORIENTED X4,NOT OBTUNDED WITH TRACH AND VENT SETTINGS.ON TELE HR IS 100'S WITH SR.NO SOB AND ACUTE DISTRESS NOTED.THICK BROWN SECRETIONS NOTED WHILE SUCTIONING.LEFT UPPER PIGTAIL CHEST TUBE PRESENT WITH CONTINUOUS INTERMITTENT SUCTION.RIGHT IJ IV IS PRESENT.SITE IS CLEAN,DRY AND INTACT.NO INFILTRATION NOTED.SAFETY IS MAINTAINED AT ALL TIMES.BED IS IN LOW POSITION AND LOCKED.CALL LIGHT IS WITHIN REACH.WILL CONTINUE TO MONITOR THE PT CLOSELY.
[2018-10-05 08:00] VITALS: BP 114/62
[2018-10-05] MEDS: LEVETIRACETAM SOL (5 ML) 100 MG/ML UDC PO SCH (08:46)
[2018-10-05] MEDS: PANTOPRAZOLE 40 MG/PACK PACK GT SCH (08:46)
[2018-10-05] MEDS: MULTIVITAMINS,THERAGRAN 1 UDTAB TABLET GT SCH (08:47)
[2018-10-05] MEDS: LACTOBACILLUS RHAMNOSUS GG 1 EACH CAP.SPRINK PO SCH ×2 (08:47→17:28)
[2018-10-05] MEDS: ATORVASTATIN 10 MG TABLET PO SCH (08:47)
[2018-10-05] MEDS: ASCORBIC ACID 500 MG TABLET GT SCH (08:47)
[2018-10-05] MEDS: PROSOURCE / PROSTAT (PYXIS) 30 ML UDC GT SCH (08:50)
[2018-10-05 12:00] VITALS: BP 110/69
[2018-10-05] MEDS: DAKINS QUARTER STRENGTH (0.125%) 480 ML BOTTLE TOP SCH (12:31)
[2018-10-05] MEDS: HYDROGEL DRESSING 90 GM TUBE TP SCH (12:31)
[2018-10-05] MEDS: Z GUARD REMEDY 2 OZ OINT TP SCH (12:32)
[2018-10-05] MEDS: TOBRAMYCIN 100 MG in IV D5W 50 ML IV SCH (15:02)
[2018-10-05 16:00] VITALS: BP 102/57
--- NOTE | 2018-10-05 19:00 | NUR ---
FRAMING INSPECTOR CLOSING NOTES PT IS ON BED WITH TRACH AND VENT SETTINGS.PT IS CLEAN AND DRY .DONE WOUND TREATMENT.NO SOB AND ACUTE DISTRESS NOTED.ENDORSED TO FOOD AND NUTRITION SERVICES ASSISTANT RN FOR CONTINUITY OF CARE.
--- NOTE | 2018-10-05 19:00 | NUR ---
Received patient with tracheostomy to the ventilator on AC mode,stable,not in any distress,awake,alert,No movement noted on all extremities but grimaces to pain with godd /strong cough and gag. TLC via right IJ ,intact with all ports patent.G tube with on going feeding,tolerating well. Chest tube ( pigtail tube at left upper mid axillary) to LCWS ,intact with minimal cream colored output. Comfort care done,needs attended.
[2018-10-05 20:00] VITALS: BP 115/64
[2018-10-06] VITALS: BP 112/65
--- NOTE | 2018-10-06 | NUR ---
Remains stable,not in any distress,turned to sides ,skin care done. 0300 AM care/bath done,sacral decub caredone,dressing changed.Left knee wound dressings changed.
[2018-10-06 04:00] VITALS: BP 116/70
[2018-10-06] MEDS: CEFEPIME 2 GM in IV D5W 100 ML IV SCH ×2 (04:51→12:07)
[2018-10-06] MEDS: INSULIN REGULAR, HUMAN 100 UNIT/ML 3 ML VIAL SQ PRN ×2 (06:09→11:56)
[2018-10-06] MEDS: BLOOD SUGAR DIAGNOSTIC 1 EACH STRIP IN SCH ×2 (06:10→11:54)
--- NOTE | 2018-10-06 07:00 | NUR ---
Remains stable,continue support and comfort care.Report given to Tim DE LA ROSA
--- NOTE | 2018-10-06 07:05 | NUR ---
Stable,no bleeding,still no BM,awake,alert,not in any distress.CBC pending.For possible EGD,Colonoscopy today .maintain NPO for now. Follow up about the right chest lump'/bump ?.Report given to Tim DE LA ROSA Addendum: 10/06/18 at 0730 by JOY ASIF RN above notes entered in error,wrong patient ,please disregard
[2018-10-06 07:24] LABS: CALCIUM, SERUM 8.1 mg/dL (8.5-10.1); CREATININE 0.6 mg/dL (0.6-1.3); POTASSIUM 4.6 mmol/L (3.5-5.1)
[2018-10-06 07:30] VITALS: BP 116/70
[2018-10-06 08:00] VITALS: BP 105/63
--- NOTE | 2018-10-06 08:00 | NUR ---
RN JOSEFINA: pt. is awake, can open eyes, no eyes contact, unable follow commands, weak, rest, no grimacing, SR, SBP over 100, suctioned with large amount, L.small chest tube had wrong connection by night nurse report/fixed/got 50 ml purulent drain, continue L.pig tail chest tube to LCS via wall suction canister, secured connection, GTF WNL, wounds care done by night nurse, CANDIE TLV dressing needs to be change
--- NOTE | 2018-10-06 08:59 | NUR ---
RT NOTE RECEIVED PT MECHANICALLY VENTILATED VIA SHILEY 8 CUFFED TRACHEOSTOMY TUBE. CUFF INFLATED. TRACH MIDLINE AND SECURE. VENTILATOR SETTINGS PRESCRIBED. ALARMS SET PER PROTOCOL AND AUDIBLE. VENT PLUGGED IN TO RED OUTLET. AMBU BAG AT BED SIDE. NO DISTRESS NOTED AT MOMENT. Addendum: 10/06/18 at 0902 by SHERRI OJEDA RT Amended: Links added.
[2018-10-06] MEDS: PANTOPRAZOLE 40 MG/PACK PACK GT SCH (09:03)
[2018-10-06] MEDS: PROSOURCE / PROSTAT (PYXIS) 30 ML UDC GT SCH (09:03)
[2018-10-06] MEDS: LEVETIRACETAM SOL (5 ML) 100 MG/ML UDC PO SCH (09:03)
[2018-10-06] MEDS: MULTIVITAMINS,THERAGRAN 1 UDTAB TABLET GT SCH (09:04)
[2018-10-06] MEDS: ASCORBIC ACID 500 MG TABLET GT SCH (09:04)
[2018-10-06] MEDS: ATORVASTATIN 10 MG TABLET PO SCH (09:04)
[2018-10-06] MEDS: LACTOBACILLUS RHAMNOSUS GG 1 EACH CAP.SPRINK PO SCH (09:05)
[2018-10-06] MEDS: DAKINS QUARTER STRENGTH (0.125%) 480 ML BOTTLE TOP SCH (09:07)
[2018-10-06] MEDS: HYDROGEL DRESSING 90 GM TUBE TP SCH (09:07)
[2018-10-06] MEDS: Z GUARD REMEDY 2 OZ OINT TP SCH (09:08)
[2018-10-06] MEDS: Z GUARD REMEDY 2 OZ OINT TP PRN (09:08)
[2018-10-06] MEDS ORDERED: CEFE2FRO IV (11:02)
--- NOTE | 2018-10-06 11:59 | NUR ---
INDUSTRIAL MAINTENANCE TECH: is updated with pt.current condition, chest pigtail catheter drainage amount/slightly purulent, said Ok to flush with NS, continue LCS, pt.is going for discharge
[2018-10-06 12:00] VITALS: BP 107/63
[2018-10-06 12:23] VITALS: BP 107/63
--- NOTE | 2018-10-06 13:50 | NUR ---
RN JOSEFINA: full report was given for ESTRELLA Monae/[facility], included pigtail chest catheter status/suction amount by LCS, Atbxs regime, vent.setting, wounds care, labs
--- NOTE | 2018-10-06 14:12 | NUR ---
MANAGER CAR: full report was given for transportation team/Franko, included pigtail catheter, suction amount, vent.settng, VS, meds, labs
--- NOTE | 2018-10-06 14:14 | NUR ---
PRINTER MACHINE: got sacral area wound photo with d/c
== END 2018-10-06 14:42 | DRG 720 ==
LOC: ER 13:27 → ICU 15:23 → TELE-TD 09-11 11:05 → ICU 09-13 10:57 → TELE-TD 09-19 13:53 → TELE1 09-21 15:50
PROVIDERS: ADMIT Nurse Practitioner Acute Care; ATTEND Nurse Practitioner Acute Care
PROC: 5A1955Z Respiratory Ventilation, Greater than 96 Consecutive Hours (ICD-10-PCS; principal; 2018-09-06)
PROC: 02HV33Z Insertion of Infusion Device into Superior Vena Cava, Percutaneous Approach (ICD-10-PCS; principal; 2018-09-06)
PROC: B548ZZA Ultrasonography of Superior Vena Cava, Guidance (ICD-10-PCS; principal; 2018-09-06)
PROC: 0W9B30Z Drainage of Left Pleural Cavity with Drainage Device, Percutaneous Approach (ICD-10-PCS; 2018-09-14)
PROC: 30233N1 Transfusion of Nonautologous Red Blood Cells into Peripheral Vein, Percutaneous Approach (ICD-10-PCS; 2018-09-19)
PROC: 0JB70ZZ Excision of Back Subcutaneous Tissue and Fascia, Open Approach (ICD-10-PCS; 2018-09-22)
PROC: 2W54XYZ Removal of Other Device on Chest Wall (ICD-10-PCS; 2018-10-04)
DX: A41.9 Sepsis, unspecified organism (principal); I21.4 Non-ST elevation (NSTEMI) myocardial infarction; J96.21 Acute and chronic respiratory failure with hypoxia; N17.0 Acute kidney failure with tubular necrosis; E43 Unspecified severe protein-calorie malnutrition; J15.6 Pneumonia due to other Gram-negative bacteria; R65.21 Severe sepsis with septic shock; J15.9 Unspecified bacterial pneumonia; R64 Cachexia; D61.818 Other pancytopenia; L89.154 Pressure ulcer of sacral region, stage 4; G92 Toxic encephalopathy; R53.2 Functional quadriplegia; I50.33 Acute on chronic diastolic (congestive) heart failure; E83.42 Hypomagnesemia; I11.0 Hypertensive heart disease with heart failure; E78.5 Hyperlipidemia, unspecified; Z99.11 Dependence on respirator [ventilator] status; N39.0 Urinary tract infection, site not specified; Z79.4 Long term (current) use of insulin; E87.2 Acidosis; D63.8 Anemia in other chronic diseases classified elsewhere; E88.09 Other disorders of plasma-protein metabolism, not elsewhere classified; M62.50 Muscle wasting and atrophy, not elsewhere classified, unspecified site; G40.909 Epilepsy, unspecified, not intractable, without status epilepticus; Z85.841 Personal history of malignant neoplasm of brain; R13.10 Dysphagia, unspecified; Z68.1 Body mass index [BMI] 19.9 or less, adult; B96.89 Other specified bacterial agents as the cause of diseases classified elsewhere; D50.9 Iron deficiency anemia, unspecified; R16.0 Hepatomegaly, not elsewhere classified; D69.59 Other secondary thrombocytopenia; J93.83 Other pneumothorax; E87.1 Hypo-osmolality and hyponatremia; E11.9 Type 2 diabetes mellitus without complications; D68.9 Coagulation defect, unspecified; B96.5 Pseudomonas (aeruginosa) (mallei) (pseudomallei) as the cause of diseases classified elsewhere; B96.1 Klebsiella pneumoniae [K. pneumoniae] as the cause of diseases classified elsewhere
CPT/HCPCS: 31720; 36415; 36600; 70450-TC; 71045-TC; 71250-TC; 75989-TC; 76604-TC; 76700-TC; 76770-TC; 80048-TC; 80053-TC; 80076-TC; 80170-TC; 80202-TC; 80305; 81000-TC; 82272-TC; 82550-TC; 82553-TC; 82570-TC; 82728-TC; 82784; 82803-TC; 82962-TC; 83540-TC; 83605-TC; 83735-TC; 84100-TC; 84155; 84155-TC; 84165; 84300-TC; 84443-TC; 84484-TC; 85025-TC; 85027-TC; 85396; 85610-TC; 85730-TC; 86334; 86850-TC; 86921-TC; 87040-TC; 87070-TC; 87081-TC; 87086-TC; 87186-TC; 89051-TC; 93307-TC; 94002-TC; 94003-TC; 94640-TC; 94760-TC; 94762-TC; 95819-TC; 99082-TC; A4216; A4217; A4606; A6248; A6253; A6402; A6403; C1751; C9113; G0378; J0692; J1450; J1580; J1644; J1815; J1940; J1953; J2060; J2185; J2250; J2310; J2405; J2543; J2916; J3010; J3260; J3370; J3475; J3490; J7030; J7050; J7060; J7070; P9016-BL; P9047; Z7610